=== PATIENT | male | born 1940 | race Caucasian/White ===

== ENCOUNTER 2019-04-10 10:21 | Inpatient (IN) ==
[2019-04-10 11:14] LABS: Basophils # (auto) 0.02 K/uL (0-0.2); Basophils % (auto) 0.4 %; Eosinophils # (auto) 0.07 K/uL (0-0.5); Eosinophils % (auto) 1.3 %; Hematocrit (blood only) 38.8 % (42-52); Hemoglobin 13.6 g/dL (14.0-18.0); Immature Granulocytes # (auto) 0.01 K/uL (0.00-0.02); Immature Granulocytes % (auto) 0.2 %; Lymphocytes # (auto) 1.24 K/uL (1.2-3.4); Lymphocytes % (auto) 22.9 %; Mean Corpuscular Hemoglobin 33.1 pg (25-34); Mean Corpuscular Hgb Conc 35.1 g/dL (32-36); Mean Corpuscular Volume 94.4 fL (80-100); Mean Platelet Volume 10.1 fL (7.4-10.4); Monocytes # (auto) 0.44 K/uL (0.11-0.59); Monocytes % (auto) 8.1 %; Neutrophils # (auto) 3.63 K/uL (1.4-6.5); Neutrophils % (auto) 67.1 %; Platelet Count 200 K/uL (130-400); RDW Coefficient of Variation 13.6 % (11.5-14.5); RDW Standard Deviation 46.3 fL (36.4-46.3); Red Blood Count 4.11 M/uL (4.7-6.1); White Blood Count 5.41 K/uL (4.8-10.8)
[2019-04-10] MEDS ORDERED: SODIUM CHLORIDE 0.9% 1000ML 1,000 ML IV SCH (11:15)
[2019-04-10 11:22] LABS: Albumin Level 3.9 gm/dl (3.4-5.0); Blood Urea Nitrogen 24 mg/dl (7-18); Calcium 8.8 mg/dl (8.5-10.1); Carbon Dioxide 29 mmol/L (21-32); Chloride 108 mmol/L (98-107); Creatinine Clr Calc Pharmacy 64.2 ml/min; Est GFR (African American) 82.2; Est GFR (Non-African American) 70.9; Glucose 159 mg/dl (70-99); Magnesium 2.1 mg/dl (1.8-2.4); Potassium 3.8 mmol/L (3.5-5.1); Sodium 141 mmol/L (136-145)
--- NOTE | 2019-04-10 11:27 | XRay Report ---
XR chest 1V portable HISTORY: 79 years-old Male weakness acute weakness COMPARISON: None available TECHNIQUE: Portable AP view of the chest FINDINGS: Cardiomediastinal and hilar silhouettes are within normal limits. Calcified plaque of the thoracic ao rtic arch. No pneumothorax, pleural effusion, focal airspace consolidation or overt pulmonary edema. Degenerative changes of the shoulders and spine. IMPRESSION: No acute process. ACT 112: Negative or not required by law. The above report was generated using voice recognition software. It may contain grammatical, syntax o r spelling errors. Electronically signed by: Bruce Lea M.D. 04/10/2019 11:26 AM
[2019-04-10 11:33] LABS: Alanine Aminotransferase 34 U/L (12-78); Albumin Globulin Ratio 1.3 (0.9-2); Alkaline Phosphatase 67 U/L (45-117); Aspartate Aminotransferase 24 U/L (15-37); Bilirubin,Total 1.2 mg/dl (0.2-1); Globulin 3.1 gm/dl (2.5-4.0); Troponin I < 0.015 ng/ml (0-0.045)
[2019-04-10 12:01] LABS: Appearance Urine Clear (Clear); Bilirubin Urine Negative (Negative); Blood Urine Negative (Negative); Color Urine Yellow; Glucose Urine UA Negative (Negative); Ketones Urine Negative (Negative); Leukocyte Esterase Urine Negative (Negative); Nitrite Urine Negative (Negative); Protein Urine Negative (Negative); Specific Gravity Urine 1.015 (1.000-1.030); Urobilinogen Urine Negative (Negative); pH Urine 7.5 (4.5-7.5)
[2019-04-10 12:33] LABS: Influenza A virus by PCR Neg for Influ A (Neg); Influenza B virus by PCR Neg for Influ B (Neg)
--- NOTE | 2019-04-10 13:54 | Emergency Department Note ---
Entered by Aurora Hudson acting as a scribe for History of Present Illness General Chief complaint: Weakness Stated complaint: FELT EXTREMELY TIRED AFTER BEING ON TREADMILL Time Seen by Provider: 04/10/19 11:04 Source: patient Mode of arrival: ambulatory Limitations: no limitations History of Present Illness Onset (ago): day(s) 1 Radiation: non-radiation Pain Consistency: + now resolved Maximum Pain Intensity: 0 Relieved By: + none Exacerbated By: + other (walking on treadmill) Associated symptoms: no chest pain, no fever/chills and no shortness of breath Treatments prior to arrival: none and other (-urinary symptoms) The patient is a 79 year old male who presents to the ED with complaints of weakness. He states yesterday after walking on the treadmill for 7 minutes in the morning, he began to feel increasingly weak. He took a shower, then became dizzy, and lied down for most of the day. He denies any recent fevers. He denies any chest pain while he was walking on the treadmill. He does admit to feeling "gassy" yesterday. He did eat breakfast this morning and states his abdomen feels better today. He denies feeling short of breath or urinary symptoms. The patient notes last weekend he was outside "for 5 hours" shoveling ice, and "felt fine". Home Medications Home Medications Medication Instructions Recorded Confirmed Type Alphagan P 1 drp OPR BID 04/10/19 04/10/19 History aspirin 81 mg PO Q2D 04/10/19 04/10/19 History dorzolamide 2 drp OPR DAILY 04/10/19 04/10/19 History finasteride 5 mg PO HS 04/10/19 04/10/19 History lisinopril 20 mg PO DAILY 04/10/19 04/10/19 History tamsulosin 0.4 mg PO Q2D 04/10/19 04/10/19 History travoprost [Travatan Z] 1 drp OPB DAILY 04/10/19 04/10/19 History atorvastatin 40 mg PO DAILY #30 tab 04/12/19 Rx clopidogrel 75 mg PO QAM #30 tab 04/12/19 Rx Allergies Allergy/AdvReac Type Severity Reaction Status Date / Time Penicillins Allergy Mild RASH Unverified 04/10/19 12:07 adhesive Allergy Unknown Verified 04/10/19 12:07 Past Med/Surg History Medical History BPH (benign prostatic hyperplasia) (Chronic) Glaucoma (Chronic) HTN (hypertension) (Chronic) Surgical History Hamstring tear with surgical repair Leg fracture with surgical repair Family History Mother Breast cancer Father Diabetes Coronary heart disease Social History Preferred Language: Latvian Communication Ability: Effective Commercial Account Manager Required: No Beliefs That Will Affect Care: None Current Living Situation: Spouse Feels Safe at Home: Yes Smoking Status: Never smoker Second Hand Exposure: No ; Hx Alcohol Use: Yes Hx Substance Use: No Review of Systems See HPI for pertinent positives & negatives. and A total of 10 systems reviewed and were otherwise negative Physical Exam Vital Signs Vital Signs - 24 hr 04/10/19 10:28 04/10/19 10:48 04/10/19 11:05 Temperature 36.5 C Temperature Source Oral Oral Pulse Rate - Lying 42 L Pulse Rate - Sitting 45 L Pulse Rate - Standing 46 L Pulse Rate 48 L 42 L Pulse Rhythm Regular Respiratory Rate 18 20 Respiratory Effort / Characteristics Non-Labored Spontaneous Respiratory Depth Normal Respiratory Pattern Regular Blood Pressure - Lying 148/72 H Blood Pressure - Sitting 128/75 Blood Pressure- Standing 145/82 H Blood Pressure 159/95 H Blood Pressure Mean 116 Blood Pressure Position Sitting Pulse Oximetry 100 98 Oxygen Delivery Method Room Air Room Air Sepsis Recent Fever Within 48 Hours No Sepsis New/Unexplained Change in Mental Status No Sepsis Action Taken by Nursing No Action Required Vital signs reviewed. General: Well-appearing 79 year old male, in no significant distress. HEENT: No scleral icterus, PERRLA, neck supple. Atraumatic. Cardiovascular: Regular rate and rhythm, no extra sounds. Pulmonary: Clear to auscultation bilaterally, normal work of breathing. Abdomen: Soft, nontender, nondistended, positive bowel sounds. Musculoskeletal: Atraumatic, no peripheral edema. Neurologic: Patient awake alert and oriented x 3. Skin: Warm, dry, no rash Course Course 1104: The patient was evaluated in room C10 and a complete history and physical were performed. 1300: I reevaluated the patient. He is resting comfortably. I discussed his re sults and my recommendation he remain in the hospital for further evaluation and management and he is agreeable with the plan. 1315: I discussed the patients case with Natasha Morales. The patient will be further evaluated. Consultations Consultation #1: I discussed the patients case with LALITHA for Natasha Morales. The patient will be further evaluated. Time: 13:15 Administered Medications Discontinued Medications Aspirin (Ecotrin Ectab) 81 mg PO Q2D@0900 [facility] Stop: 05/11/19 08:59 Last Admin: 04/11/19 08:05 Dose: 81 mg Documented by: [id number] Atorvastatin Calcium (Lipitor) 10 mg PO DAILY [facility] Stop: 05/11/19 08:59 Last Admin: 04/12/19 07:46 Dose: 10 mg Documented by: [id number] Admin: 04/11/19 08:06 Dose: 10 mg Documented by: [id number] Clopidogrel Bisulfate (Plavix) 75 mg PO QAM [facility] Stop: 05/12/19 08:59 Last Admin: 04/12/19 07:46 Dose: 75 mg Documented by: [id number] Dorzolamide HCl (Trusopt 2% Oph) 2 drops OPR DAILY [facility] Stop: 05/11/19 08:59 Last Admin: 04/12/19 07:45 Dose: 2 drops Documented by: [id number] Admin: 04/11/19 08:06 Dose: 2 drops Documented by: [id number] Fentanyl Citrate (Fentanyl Citrate) Confirm Administered Dose 100 mcg .ROUTE .STK-MED ONE Stop: 04/11/19 11:22 Last Admin: 04/11/19 12:51 Dose: 75 mcg Documented by: [id number] Finasteride (Proscar) 5 mg PO HS [facility] Stop: 05/10/19 20:59 Last Admin: 04/11/19 20:19 Dose: 5 mg Documented by: [id number] Admin: 04/10/19 20:02 Dose: 5 mg Documented by: [id number] Heparin Sodium (Porcine) (Heparin Iv Bolus (Junior Graphic Designer Use Only)) Confirm Administered Dose 10,000 units .ROUTE .STK-MED ONE Stop: 04/11/19 11:22 Last Admin: 04/11/19 12:41 Dose: 10,000 units Documented by: [id number] Heparin Sodium (Porcine) (Heparin Iv Bolus (Junior Graphic Designer Use Only)) Confirm Administered Dose 10,000 units .ROUTE .STK-MED ONE Stop: 04/11/19 12:32 Last Admin: 04/11/19 12:51 Dose: 1,000 units Documented by: [id number] Heparin Sodium/Sodium Chloride (Heparin/Nss 1000 Unit/500ml Flush Bag) Confirm Administered Dose 3,000 units IV .STK-MED ONE Stop: 04/11/19 11:22 Last Admin: 04/11/19 12:30 Dose: 3,000 units Documented by: [id number] Sodium Chloride (Nss 1000ml) 1,000 mls @ 125 mls/hr IV .Q8H [facility] Stop: 04/10/19 19:14 Last Infusion: 04/10/19 15:50 Dose: 0 mls/hr Documented by: [id number] Admin: 04/10/19 12:01 Dose: 125 mls/hr Documented by: [id number] Sodium Chloride (Nss 1000ml) 1,000 mls @ 100 mls/hr IV .Q10H [facility] Stop: 04/11/19 20:59 Last Infusion: 04/11/19 22:16 Dose: 0 mls/hr Documented by: [id number] Admin: 04/11/19 13:48 Dose: 100 mls/hr Documented by: [id number] Midazolam HCl (Versed) Confirm Administered Dose 2 mg .ROUTE .STK-MED ONE Stop: 04/11/19 11:22 Last Admin: 04/11/19 12:30 Dose: 2 mg Documented by: [id number] Nicardipine HCl (Cardene) Confirm Administered Dose 25 mg .ROUTE .STK-MED ONE Stop: 04/11/19 11:22 Last Admin: 04/11/19 12:29 Dose: 25 mg Documented by: [id number] Nitroglycerin/Dextrose (Nitroglycerin/D5w 100 Mcg/Ml 20ml Syringe) Confirm Administered Dose 2,000 mcg .ROUTE .STK-MED ONE Stop: 04/11/19 11:22 Last Admin: 04/11/19 12:29 Dose: 2,000 mcg Documented by: [id number] Alphagan P ~ Non- Formulary Patient's Own Med 1 ea OPR BID [facility] Stop: 05/10/19 20:59 Last Admin: 04/12/19 07:46 Dose: 1 ea Documented by: [id number] Admin: 04/11/19 20:19 Dose: 1 ea Documented by: [id number] Admin: 04/11/19 08:07 Dose: 1 ea Documented by: [id number] Admin: 04/10/19 22:41 Dose: 1 ea Documented by: [id number] Polyethylene Glycol (Miralax Powder Packet) 17 gm PO DAILY PRN PRN Reason: Constipation Stop: 05/10/19 15:45 Last Admin: 04/12/19 04:17 Dose: 17 gm Documented by: [id number] Tamsulosin HCl (Flomax) 0.4 mg PO Q2D@1800 [facility] Stop: 05/10/19 17:59 Last Admin: 04/10/19 18:36 Dose: 0.4 mg Documented by: [id number] Medical Decision Making Differential Diagnosis Differential Diagnosis includes but is not limited to dehydration, stroke, anemia, hypoglycemia, hyponatremia, hypernatremia, urinary tract infection, pneumonia, bronchitis, sepsis, gastroenteritis, additional abdominal pathology, metabolic abnormalities and infections. Medical Records Attestation: I reviewed the patient's medical records. Home Medications Current Medication List: was personally reviewed by me Laboratory Data Attestation: I reviewed the patient's lab results. Result diagrams: 04/12/19 05:20 04/12/19 05:20 Lab Results 04/10/19 04/10/19 04/10/19 Range/Units 10:45 10:45 10:45 WBC 5.41 (4.8-10.8) K/uL RBC 4.11 L (4.7-6.1) M/uL Hgb 13.6 L (14.0-18.0) g/dL Hct 38.8 L (42-52) % MCV 94.4 (80-100) fL MCH 33.1 (25-34) pg MCHC 35.1 (32-36) g/dL RDW Std Deviation 46.3 (36.4-46.3) fL RDW Coeff of Jak 13.6 (11.5-14.5) % Plt Count 200 (130-400) K/uL MPV 10.1 (7.4-10.4) fL Immature Gran % (Auto) 0.2 % Neut % (Auto) 67.1 % Lymph % (Auto) 22.9 % [place] % (Auto) 8.1 % Eos % (Auto) 1.3 % Baso % (Auto) 0.4 % Immature Gran # (Auto) 0.01 (0.00-0.02) K/uL Neut # (Auto) 3.63 (1.4-6.5) K/uL Lymph # (Auto) 1.24 (1.2-3.4) K/uL [place] # (Auto) 0.44 (0.11-0.59) K/uL Eos # (Auto) 0.07 (0-0.5) K/uL Baso # (Auto) 0.02 (0-0.2) K/uL Sodium 141 (136-145) mmol/L Potassium 3.8 (3.5-5.1) mmol/L Chloride 108 H (98-107) mmol/L Carbon Dioxide 29 (21-32) mmol/L Anion Gap 4.0 (3-11) BUN 24 H (7-18) mg/dl Creatinine 1.01 (0.6-1.4) mg/dl Est Cr Clr Drug Dosing 64.2 ml/min Est GFR ( Amer) 82.2 Est GFR (Non-Af Amer) 70.9 BUN/Creatinine Ratio 24.0 H (10-20) Glucose 159 H (70-99) mg/dl Calcium 8.8 (8.5-10.1) mg/dl Magnesium 2.1 (1.8-2.4) mg/dl Total Bilirubin 1.2 H (0.2-1) mg/dl AST 24 (15-37) U/L ALT 34 (12-78) U/L Alkaline Phosphatase 67 (45-117) U/L Troponin I < 0.015 (0-0.045) ng/ml Total Protein 7.0 (6.4-8.2) gm/dl Albumin 3.9 (3.4-5.0) gm/dl Globulin 3.1 (2.5-4.0) gm/dl Albumin/Globulin Ratio 1.3 (0.9-2) TSH 1.300 (0.300-4.500) uIu/ml Urine Color Urine Appearance (Clear) Urine pH (4.5-7.5) Ur Specific [place] (1.000-1.030) Urine Protein (Negative) Urine Glucose (UA) (Negative) Urine Ketones (Negative) Urine Blood (Negative) Urine Nitrite (Negative) Urine Bilirubin (Negative) Urine Urobilinogen (Negative) Ur Leukocyte Esterase (Negative) Lyme Disease IgG Ab Negative (Negative) Lyme Disease IgM Ab Negative (Negative) Influenza Type A (PCR) (Neg) Influenza Type B (PCR) (Neg) 04/10/19 04/10/19 Range/Units 11:50 11:50 WBC (4.8-10.8) K/uL RBC (4.7-6.1) M/uL Hgb (14.0-18.0) g/dL Hct (42-52) % MCV (80-100) fL MCH (25-34) pg MCHC (32-36) g/dL RDW Std Deviation (36.4-46.3) fL RDW Coeff of Jak (11.5-14.5) % Plt Count (130-400) K/uL MPV (7.4-10.4) fL Immature Gran % (Auto) % Neut % (Auto) % Lymph % (Auto) % [place] % (Auto) % Eos % (Auto) % Baso % (Auto) % Immature Gran # (Auto) (0.00-0.02) K/uL Neut # (Auto) (1.4-6.5) K/uL Lymph # (Auto) (1.2-3.4) K/uL [place] # (Auto) (0.11-0.59) K/uL Eos # (Auto) (0-0.5) K/uL Baso # (Auto) (0-0.2) K/uL Sodium (136-145) mmol/L Potassium (3.5-5.1) mmol/L Chloride (98-107) mmol/L Carbon Dioxide (21-32) mmol/L Anion Gap (3-11) BUN (7-18) mg/dl Creatinine (0.6-1.4) mg/dl Est Cr Clr Drug Dosing ml/min Est GFR ( Amer) Est GFR (Non-Af Amer) BUN/Creatinine Ratio (10-20) Glucose (70-99) mg/dl Calcium (8.5-10.1) mg/dl Magnesium (1.8-2.4) mg/dl Total Bilirubin (0.2-1) mg/dl AST (15-37) U/L ALT (12-78) U/L Alkaline Phosphatase (45-117) U/L Troponin I (0-0.045) ng/ml Total Protein (6.4-8.2) gm/dl Albumin (3.4-5.0) gm/dl Globulin (2.5-4.0) gm/dl Albumin/Globulin Ratio (0.9-2) TSH (0.300-4.500) uIu/ml Urine Color Yellow Urine Appearance Clear (Clear) Urine pH 7.5 (4.5-7.5) Ur Specific [place] 1.015 (1.000-1.030) Urine Protein Negative (Negative) Urine Glucose (UA) Negative (Negative) Urine Ketones Negative (Negative) Urine Blood Negative (Negative) Urine Nitrite Negative (Negative) Urine Bilirubin Negative (Negative) Urine Urobilinogen Negative (Negative) Ur Leukocyte Esterase Negative (Negative) Lyme Disease IgG Ab (Negative) Lyme Disease IgM Ab (Negative) Influenza Type A (PCR) Neg for Influ A (Neg) Influenza Type B (PCR) Neg for Influ B (Neg) Imaging Data Radiologist's Impression: Radiology results as stated below per my review and the radiologist's interpretation: XR chest 1V portable HISTORY: 79 years-old Male weakness acute weakness COMPARISON: None available TECHNIQUE: Portable AP view of the chest FINDINGS: Cardiomediastinal and hilar silhouettes are within normal limits. Calcified plaque of the thoracic aortic arch. No pneumothorax, pleural effusion, focal airspace consolidation or overt pulmonary edema. Degenerative changes of the shoulders and spine. IMPRESSION: No acute process. ACT 112: Negative or not required by law. The above report was generated using voice recognition software. It may contain grammatical, syntax or spelling errors. Electronically signed by: Bruce Lea M.D. 04/10/2019 11:26 AM ECG Data Attestation: I personally reviewed and interpreted this ECG as follows: Indication: + weakness Rate (beats per minute): 46 ECG Intervals/blocks: + Normal QT-c (378) ECG ST segments: no ST depression and no ST elevation ECG Findings: no PACs and no PVCs Additional Comments: An order for cardiac monitoring was placed, pt was found to be in a sinus bradycardia at 45 bpm Blood Pressure Blood Pressure Findings: Elevated blood pressure Blood Pressure Disposition: further management by hospitalist MERCED Narrative This pt was evaluated and appeared to be in no distress. IV access was obtained and lab work was drawn. PT was placed on the vehicle monitor technician and found to be in a sinus bradycardia. IVF were initiated. Pt denied pain and c/o fatigue/weakness. Lab work is reassuring. CXR is clear, EKG reveals no acute ischemia. Influenza swab is negative. Pt's case was d/w Dr. Mcgowan of cardiology regarding disposition. He has recommended hospitalist eval and stress test. Pt was informed of the plan and agrees. [facility] hospitalist service was consulted. Impression & Plan Bradycardia, Exercise intolerance Discharge Plan Visit Data *Final* Discharge Date/Time: 04/10/19 15:24 Chief Complaint: Weakness Stated Complaint: FELT EXTREMELY TIRED AFTER BEING ON TREADMILL ED Provider: Manda Mar Discharge Problem: Bradycardia, Exercise intolerance Patient Disposition: Admitted As Inpatient Condition: Good Discharge Instructions Interventions: ED Discharge Assessment Last Done: 04/10/19 15:24 The scribe's documentation has been prepared under my direction and personally reviewed by me in its entirety. I confirm that the note above accurately reflects all work, treatment, procedures, and medical decision making performed by me.
--- NOTE | 2019-04-10 14:24 | History & Physical Report ---
Date of Service April 10, 2019 Assessment & Plan (1) Sinus bradycardia: This is a 79yo M with a PMH of HTN, BPH and glaucoma who presents with fatigue since yesterday. Was walking on the treadmill and felt extremely fatigued after 7-8 minutes yesterday and was found to have sinus bradycardia. -Fatigue and weakness following 7 minutes on treadmill yesterday. Denies any AMS,chest pain, palpitations or SOB. BP stable -EKG with sinus bradycardia at 46 bpm -HR ranging from 40-50 since arrival -ED physician discussed with Dr. Mcgowan, who plans on stress echo in the morning -Monitor on telemetry overnight, external pacer pads at bedside -2D echo ordered. NPO after midnight (2) HTN (hypertension): Normotensive. Continue lisinopril. Avoid AV danna blocking agents (3) BPH (benign prostatic hyperplasia): Continue finasteride, tamsulosin DVT Ppx: SQ heparin Code status: FULL PCP: Mike Ulrich Dispo: Admitted to PCU. Plan to return home once medically stable. Patient seen in collaboration with Dr. Meadows. Please see addendum. History of Present Illness Chief Complaint: fatigue Primary Care Provider: Helena Ulrich MD This is a 79yo M with a PMH of HTN, BPH and glaucoma who presents with fatigue since yesterday. Was walking on the treadmill and felt extremely fatigued after 7-8 minutes and stopped. [place] very fatigued for the rest of the day despite resting. Has been using the treadmill approximately 5x/week since the beginning of the year and has been walking regularly for years and never has felt this way previously. Afterwards when bending down, patient felt dizzy but symptoms resolved with standing, which is not unusual for him. Denies any chest pain, palpitations, shortness of breath or near syncope. Does endorse recent palpitations if lying down on left side but feels fine when lying on right side. HR normally in high 50s at rest and 110s when walking but patient checked Fitbit twice yesterday and HR wasn't registering. Did shovel snow in driveway for hours last week without issue. Denies any history of CAD, NV, CAD. Denies fever, chills, nausea, vomiting, abdominal pain, dysuria, diarrhea or constipation. Allergies Allergy/AdvReac Type Severity Reaction Status Date / Time Penicillins Allergy Mild RASH Unverified 04/10/19 12:07 adhesive Allergy Unknown Verified 04/10/19 12:07 Home Medications Home Medications Medication Instructions Recorded Confirmed Type aspirin 81 mg PO Q2D 04/10/19 04/10/19 History atorvastatin [Lipitor] 10 mg PO DAILY 04/10/19 04/10/19 History brimonidine [Alphagan P] 1 drp OPR BID 04/10/19 04/10/19 History dorzolamide 2 drp OPR DAILY 04/10/19 04/10/19 History finasteride 5 mg PO HS 04/10/19 04/10/19 History lisinopril 20 mg PO DAILY 04/10/19 04/10/19 History tamsulosin 0.4 mg PO Q2D 04/10/19 04/10/19 History travoprost [Travatan Z] 1 drp OPB DAILY 04/10/19 04/10/19 History Past Med/Surg History Medical History (Updated 04/10/19 @ 16:01 by Yola Freeman PA-C) BPH (benign prostatic hyperplasia) (Chronic) Glaucoma (Chronic) HTN (hypertension) (Chronic) Surgical History (Updated 04/10/19 @ 15:59 by Yola Freeman PA-C) Hamstring tear with surgical repair Leg fracture with surgical repair Family History (Updated 04/10/19 @ 15:59 by Yola Freeman PA-C) Mother Breast cancer Father Diabetes Coronary heart disease Social History Preferred Language: Czech Communication Ability: Effective Local Company Hazmat Driver Required: No Beliefs That Will Affect Care: None Current Living Situation: Spouse Other Information That Helps Us Care for You: No Feels Safe at Home: Yes Safety Concerns: Feels Safe At This Time Smoking Status: Never smoker Do You Dip or Chew Tobacco: No ; Second Hand Exposure: No ; Tobacco Cessation Education Requested by Patient: No Hx Alcohol Use: Yes Hx Substance Use: No Review of Systems Review of Systems: At least ten systems reviewed and negative except as noted in the HPI. Physical Exam Physical Exam: Please see Dr. Meadows's addendum for physical exam details. Results & Data Vital Signs (Past 12 Hours) Vital Signs Temp Pulse Resp BP Pulse Ox 04/10/19 11:05 42 L 20 98 04/10/19 10:28 36.5 C 48 L 18 159/95 H 100 Laboratory Results Short CBC 04/10/19 Range/Units 10:45 WBC 5.41 (4.8-10.8) K/uL Hgb 13.6 L (14.0-18.0) g/dL Hct 38.8 L (42-52) % Plt Count 200 (130-400) K/uL BMP 04/10/19 10:45 Sodium 141 Potassium 3.8 Chloride 108 H Carbon Dioxide 29 BUN 24 H Creatinine 1.01 Glucose 159 H Calcium 8.8 Cardiac Enzymes 04/10/19 Range/Units 10:45 Troponin I < 0.015 (0-0.045) ng/ml Liver Function 04/10/19 Range/Units 10:45 Total Bilirubin 1.2 H (0.2-1) mg/dl AST 24 (15-37) U/L ALT 34 (12-78) U/L Alkaline Phosphatase 67 (45-117) U/L Albumin 3.9 (3.4-5.0) gm/dl Urine 04/10/19 Range/Units 11:50 Urine Color Yellow Urine Appearance Clear (Clear) Urine pH 7.5 (4.5-7.5) Ur Specific [place] 1.015 (1.000-1.030) Urine Protein Negative (Negative) Urine Glucose (UA) Negative (Negative) Diagnostic Findings CXR: IMPRESSION: No acute process. Supervising Physician Co-Signing Physician Notes 79yo M with a PMH of HTN, BPH and glaucoma who presents with fatigue since yesterday History and physical exam performed by me. Detailed history as documented by Yola Freeman PA-C History significant for extreme fatigue on using treadmill, reported heart rate in 50s on his fitbit. On physical exam, General: Well nourished, well hydrated, average body habitus, no acute distress and not ill appearing Eyes: PERRL, conjunctivae normal, not pale, anicteric sclerae, EOM intact bilaterally ENMT: External ear and nose normal, oropharynx normal Neck: Normal visual inspection, no tracheal deviation, no swelling noted Respiratory: Normal respiratory effort, no respiratory distress, lungs clear to auscultation, no crackles and no wheezes Cardiovascular: Pulse is bradycardic, regular rhythm. S1 and S2, no murmurs. No pedal edema Chest (Breasts): Chest: normal inspection of chest Gastrointestinal (Abdomen): Abdomen is not distended, soft, non-tender to palpation, no guarding, no palpable hepatosplenomegaly, normal bowel sounds Musculoskeletal: No cyanosis or clubbing, all extremities motor strength 5/5 Genitourinary: No CVA tenderness, no suprapubic tenderness Skin: No rash noted on gross inspection, No ulcers noted Neurologic: Alert and oriented x 3, No focal weakness, sensation grossly intact Psychiatric: Euthymic affect, normal judgement EKG showed sinus bradycardia, rate of 46, PA 192, QRS 102, QTc 378, no ST T changes TSH 1.3 Sinus bradycardia HR has been in 40s-50s in ER Avoid AV danna agents Zoll pads at bedside Telemetry monitoring 2D Echo Spoke with [employer] Consulting Architect Dr Mcgowan. Patient will get stress testing tomorrow morning. Continue home lisinopril for hypertension
[2019-04-10] MEDS ORDERED: POLYETHYLENE (MIRALAX) 17 GM PACK PO PRN (15:46)
[2019-04-10] MEDS ORDERED: ACETAMINOPHEN 325 MG TAB PO PRN (15:46)
[2019-04-10] MEDS ORDERED: TAMSULOSIN HCL 0.4 MG CAP PO SCH (18:00)
--- NOTE | 2019-04-10 18:16 | Electrocardiogram Report ---
Test Reason : Blood Pressure : / mmHG Vent. Rate : 046 BPM Atrial Rate : 046 BPM P-R Int : 192 ms QRS Dur : 102 ms QT Int : 432 ms P-R-T Axes : 030 017 022 degrees QTc Int : 378 ms Sinus bradycardia Otherwise normal ECG No previous ECGs available Confirmed by Candido Robert ([id number] on 04/10/2019 6:15:41 PM Referred By: ED Confirmed By:Luis Antonio Robert
[2019-04-10] MEDS: FINASTERIDE 5 MG TAB PO SCH (20:02)
[2019-04-10] MEDS: ALPHAGAN P OPR SCH (22:41)
[2019-04-11 06:27] LABS: Hemoglobin 11.9 g/dL (14.0-18.0); Mean Corpuscular Hemoglobin 32.2 pg (25-34); Mean Corpuscular Volume 94.9 fL (80-100); Mean Platelet Volume 10.1 fL (7.4-10.4); Platelet Count 173 K/uL (130-400); RDW Coefficient of Variation 13.4 % (11.5-14.5); RDW Standard Deviation 46.4 fL (36.4-46.3); Red Blood Count 3.69 M/uL (4.7-6.1); White Blood Count 5.74 K/uL (4.8-10.8)
[2019-04-11 07:01] LABS: BUN Creatinine Ratio 27.7 (10-20); Calcium 8.3 mg/dl (8.5-10.1); Creatinine Clr Calc Pharmacy 64.2 ml/min; Est GFR (African American) 82.2; Est GFR (Non-African American) 70.9; Potassium 4.1 mmol/L (3.5-5.1)
[2019-04-11] MEDS: ATORVASTATIN 10 MG TAB PO SCH (08:06)
[2019-04-11] MEDS: DORZOLAMIDE HCL 2% OPH SOLN 10 ML BTL OPR SCH (08:06)
[2019-04-11] MEDS: TRAVOPROST Z 0.004% OPH SOLN 2.5 ML BTL OPB SCH (08:06)
[2019-04-11] MEDS: ALPHAGAN P OPR SCH ×2 (08:07→20:19)
[2019-04-11] MEDS ORDERED: ASPIRIN 81 MG ECTAB PO SCH (09:00)
--- NOTE | 2019-04-11 09:59 | Cardiology Consultation ---
Date of Consultation April 11, 2019 Assessment & Plan (1) Dyspnea on exertion: Presentation was atypical for unstable angina, however, exercise stress testing did show significant ischemic EKG changes diffusely along with inducible hypokinesis of the LAD territory. Further evaluation with cardiac catheterization is indicated at this time. The procedure along with the alternatives were discussed with the patient and he agrees with proceeding with cardiac cath. He will remain n.p.o. and plan for cardiac catheterization today. We will hold off on making any medication changes at this time. (2) Sinus bradycardia: Good chronotropic response to exercise (3) HTN (hypertension): Normal BP response to exercise History of Present Illness Reason for Consultation: Dyspnea with exertion Requesting Physician: Dr. Crane Attending Physician: Juliana Langston MD History of Present Illness It was my pleasure to see Mr. Santos in consultation today April 11, 2019. He is a very pleasant 79-year-old gentleman who does not normally follow with a merchandising consultant. He presented to [facility] on 04/10/2019 with complaint of not feeling well. He states that on the morning of 04/09/2019 he woke up and went through his normal routine of eating breakfast and then walking on the treadmill. He states that after walking on the treadmill for only a few minutes he did not feel well. He did not have any exact chest pain but he states he just did not have the energy to continue on. This is very unusual for him. He also got significantly dyspneic and diaphoretic. He then went to rest however the symptoms persisted throughout the day. When he woke up on the symptoms were still present and he presented to the emergency department. Initial work-up was unremarkable except for resting bradycardia into the 40s he was admitted to telemetry. Overnight states he feels a little bit better and again denies any chest pain, nausea, palpitations, lightheadedness, dizziness or syncope. He denies any previous similar episodes. Allergies Allergy/AdvReac Type Severity Reaction Status Date / Time Penicillins Allergy Mild RASH Unverified 04/10/19 12:07 adhesive Allergy Unknown Verified 04/10/19 12:07 Home Medications Home Medications Medication Instructions Recorded Confirmed Type aspirin 81 mg PO Q2D 04/10/19 04/10/19 History atorvastatin [Lipitor] 10 mg PO DAILY 04/10/19 04/10/19 History brimonidine [Alphagan P] 1 drp OPR BID 04/10/19 04/10/19 History dorzolamide 2 drp OPR DAILY 04/10/19 04/10/19 History finasteride 5 mg PO HS 04/10/19 04/10/19 History lisinopril 20 mg PO DAILY 04/10/19 04/10/19 History tamsulosin 0.4 mg PO Q2D 04/10/19 04/10/19 History travoprost [Travatan Z] 1 drp OPB DAILY 04/10/19 04/10/19 History Patient History Medical History BPH (benign prostatic hyperplasia) (Chronic) Glaucoma (Chronic) HTN (hypertension) (Chronic) Surgical History Hamstring tear with surgical repair Leg fracture with surgical repair Family History Mother Breast cancer Father Diabetes Coronary heart disease Social History Preferred Language: Nepali Communication Ability: Effective Esthetician Required: No Beliefs That Will Affect Care: None Current Living Situation: Spouse Other Information That Helps Us Care for You: No Feels Safe at Home: Yes Safety Concerns: Feels Safe At This Time Smoking Status: Never smoker Do You Dip or Chew Tobacco: No ; Second Hand Exposure: No ; Tobacco Cessation Education Requested by Patient: No Hx Alcohol Use: Yes Hx Substance Use: No Review of Systems Review of Systems: All systems reviewed & are unremarkable except as noted in HPI & below Physical Exam Physical Exam: General: Awake, alert and oriented x 3. No acute distress. HEENT: Normocephalic, atraumatic. Pupils equal, round and reactive to light and accommodation. Extraocular muscles are intact. Anicteric sclera. Moist mucous membranes. Neck: No JVD. No bruit. Cardiovascular: Regular. Positive S-4. Normal S-1 and S-2. No S-3. 3/6 holosystolic ejection murmur, 5th intercostal space, mid-clavicular line without radiation. No rubs. Pulmonary: Clear to auscultation bilaterally. No rales, rhonchi, or wheezing. Abdomen: Bowel sounds x 4, soft. No rebound, guarding or tenderness. No organomegaly. Extremities: No clubbing, cyanosis or edema. +2 pedal pulses bilaterally. Skin: Warm and dry. Results & Data Vital Signs (Past 12 Hours) Vital Signs Temp Pulse Pulse Pulse Resp BP BP 04/11/19 07:39 42 L 04/11/19 07:34 36.8 C 50 L 18 110/60 04/11/19 03:37 36.6 C 46 L 20 107/61 04/10/19 23:19 45 L 04/10/19 23:12 41 L 112/62 04/10/19 22:57 36.6 C 45 L 18 94/50 L Pulse Ox 04/11/19 07:39 04/11/19 07:34 96 04/11/19 03:37 97 04/10/19 23:19 04/10/19 23:12 98 04/10/19 22:57 96 Laboratory Results Laboratory Results - last 24 hr 04/10/19 04/10/19 04/10/19 10:45 10:45 11:50 WBC 5.41 RBC 4.11 L Hgb 13.6 L Hct 38.8 L MCV 94.4 MCH 33.1 MCHC 35.1 RDW Std Deviation 46.3 RDW Coeff of Jak 13.6 Plt Count 200 MPV 10.1 Immature Gran % (Auto) 0.2 Neut % (Auto) 67.1 Lymph % (Auto) 22.9 [place] % (Auto) 8.1 Eos % (Auto) 1.3 Baso % (Auto) 0.4 Immature Gran # (Auto) 0.01 Neut # (Auto) 3.63 Lymph # (Auto) 1.24 [place] # (Auto) 0.44 Eos # (Auto) 0.07 Baso # (Auto) 0.02 Sodium 141 Potassium 3.8 Chloride 108 H Carbon Dioxide 29 Anion Gap 4.0 BUN 24 H Creatinine 1.01 Est Cr Clr Drug Dosing 64.2 Est GFR ( Amer) 82.2 Est GFR (Non-Af Amer) 70.9 BUN/Creatinine Ratio 24.0 H Glucose 159 H Calcium 8.8 Magnesium 2.1 Total Bilirubin 1.2 H AST 24 ALT 34 Alkaline Phosphatase 67 Troponin I < 0.015 Total Protein 7.0 Albumin 3.9 Globulin 3.1 Albumin/Globulin Ratio 1.3 TSH 1.300 Urine Color Urine Appearance Urine pH Ur Specific [place] Urine Protein Urine Glucose (UA) Urine Ketones Urine Blood Urine Nitrite Urine Bilirubin Urine Urobilinogen Ur Leukocyte Esterase Influenza Type A (PCR) Neg for Influ A Influenza Type B (PCR) Neg for Influ B 04/10/19 04/11/19 04/11/19 11:50 05:35 05:35 WBC 5.74 RBC 3.69 L Hgb 11.9 L Hct 35.0 L MCV 94.9 MCH 32.2 MCHC 34.0 RDW Std Deviation 46.4 H RDW Coeff of Jak 13.4 Plt Count 173 MPV 10.1 Immature Gran % (Auto) Neut % (Auto) Lymph % (Auto) [place] % (Auto) Eos % (Auto) Baso % (Auto) Immature Gran # (Auto) Neut # (Auto) Lymph # (Auto) [place] # (Auto) Eos # (Auto) Baso # (Auto) Sodium 142 Potassium 4.1 Chloride 110 H Carbon Dioxide 29 Anion Gap 3.0 BUN 28 H Creatinine 1.01 Est Cr Clr Drug Dosing 64.2 Est GFR ( Amer) 82.2 Est GFR (Non-Af Amer) 70.9 BUN/Creatinine Ratio 27.7 H Glucose 91 Calcium 8.3 L Magnesium Total Bilirubin AST ALT Alkaline Phosphatase Troponin I Total Protein Albumin Globulin Albumin/Globulin Ratio TSH Urine Color Yellow Urine Appearance Clear Urine pH 7.5 Ur Specific [place] 1.015 Urine Protein Negative Urine Glucose (UA) Negative Urine Ketones Negative Urine Blood Negative Urine Nitrite Negative Urine Bilirubin Negative Urine Urobilinogen Negative Ur Leukocyte Esterase Negative Influenza Type A (PCR) Influenza Type B (PCR) Medications Administered Current Inpatient Medications Acetaminophen (Tylenol) 650 mg PO Q4H PRN PRN Reason: Pain or Fever Stop: 05/10/19 15:45 Aspirin (Ecotrin Ectab) 81 mg PO Q2D@0900 [facility] Stop: 05/11/19 08:59 Last Admin: 04/11/19 08:05 Dose: 81 mg Documented by: Atorvastatin Calcium (Lipitor) 10 mg PO DAILY [facility] Stop: 05/11/19 08:59 Last Admin: 04/11/19 08:06 Dose: 10 mg Documented by: Dorzolamide HCl (Trusopt 2% Oph) 2 drops OPR DAILY [facility] Stop: 05/11/19 08:59 Last Admin: 04/11/19 08:06 Dose: 2 drops Documented by: Finasteride (Proscar) 5 mg PO HS [facility] Stop: 05/10/19 20:59 Last Admin: 04/10/19 20:02 Dose: 5 mg Documented by: Erasto P ~ Non- Formulary Patient's Own Med 1 ea OPR BID [facility] Stop: 05/10/19 20:59 Last Admin: 04/11/19 08:07 Dose: 1 ea Documented by: Polyethylene Glycol (Miralax Powder Packet) 17 gm PO DAILY PRN PRN Reason: Constipation Stop: 05/10/19 15:45 Tamsulosin HCl (Flomax) 0.4 mg PO Q2D@1800 [facility] Stop: 05/10/19 17:59 Last Admin: 04/10/19 18:36 Dose: 0.4 mg Documented by:
--- NOTE | 2019-04-11 10:18 | XCELERA ---
[id number] \\[email or web address]\PDF_Reports\[id number]___[email or web address].[id number]
--- NOTE | 2019-04-11 10:20 | XCELERA ---
[id number] \\MCXCELIBE\PDF_Reports\[id number]}___[id number]
--- NOTE | 2019-04-11 11:14 | Pre Anesthesia Assessment ---
Date of Service April 11, 2019 Pre Sedation Assessment Vital Signs Temp Pulse Pulse Pulse Resp BP BP 04/11/19 07:39 42 L 04/11/19 07:34 98.2 F 50 L 18 04/11/19 03:37 97.9 F 46 L 20 04/10/19 23:19 45 L 04/10/19 23:12 41 L 04/10/19 22:57 97.9 F 45 L 18 94/50 L 04/10/19 19:24 98.2 F 52 L 18 112/59 L 04/10/19 16:00 50 L 04/10/19 15:46 97.7 F 46 L 16 153/63 H 04/10/19 15:01 45 L 17 04/10/19 15:00 47 L 7 L 124/62 04/10/19 14:50 49 L 24 04/10/19 14:40 44 L 21 04/10/19 14:30 48 L 16 04/10/19 14:20 46 L 20 04/10/19 14:12 46 L 22 04/10/19 14:11 46 L 18 149/128 H 04/10/19 13:00 44 L 21 143/72 H 04/10/19 12:50 43 L 6 L 04/10/19 12:40 41 L 17 04/10/19 12:30 40 L 0 L 04/10/19 12:20 41 L 18 04/10/19 12:10 41 L 20 04/10/19 12:01 44 L 14 04/10/19 12:00 49 L 15 145/82 H 04/10/19 11:58 46 L 21 138/75 BP Pulse Ox 04/11/19 07:39 04/11/19 07:34 110/60 96 04/11/19 03:37 107/61 97 04/10/19 23:19 04/10/19 23:12 112/62 98 04/10/19 22:57 96 04/10/19 19:24 95 04/10/19 16:00 04/10/19 15:46 100 04/10/19 15:01 04/10/19 15:00 04/10/19 14:50 04/10/19 14:40 04/10/19 14:30 04/10/19 14:20 04/10/19 14:12 04/10/19 14:11 04/10/19 13:00 04/10/19 12:50 04/10/19 12:40 04/10/19 12:30 04/10/19 12:20 04/10/19 12:10 04/10/19 12:01 04/10/19 12:00 04/10/19 11:58 Cardiovascular RRR, no murmur, no edema Respiratory normal respiratory effort, lungs clear to auscultation Pre-Sedation Airway Assessment Smoking Status: Never smoker Hx Sleep Apnea: No Hx Difficult Intubation: No Short, Thick Neck: No Thyromental Distance: > or= 3.5 Finger Breadths Oral Cavity: + WNL Mallampati Class: III Procedure Planning Contraindications for Sedation: none Current Medications Reviewed: Yes Notes The planned sedation has been discussed with the patient. Informed Consent was obtained. I have identified the patient, determined the appropriateness of sedation and have assessed the patient immediately prior to the procedure. All medicine(s) and interventions are by my order.
[2019-04-11] MEDS ORDERED: NITROGLYCERIN/D5W 100MCG/ML 20ML SYR ONE (11:21)
[2019-04-11] MEDS ORDERED: HEPARIN (PORCINE) 1000 UNIT/ML 10 ML (CATH LAB USE ONLY) ONE ×2 (11:21→12:31)
[2019-04-11] MEDS ORDERED: fentaNYL citrate 100 MCG/2 ML VIAL ONE (11:21)
[2019-04-11] MEDS ORDERED: MIDAZOLAM HCL 1 MG/ML 2ML VIAL ONE (11:21)
[2019-04-11] MEDS ORDERED: NiCARDipine HCL INJ 2.5 MG/ML 10 ML AMP ONE (11:21)
--- NOTE | 2019-04-11 13:11 | Post Anesthesia Assessment ---
Date of Service April 11, 2019 Post Sedation Assessment Vital Signs Temp Pulse Pulse Pulse Resp BP BP 04/11/19 13:10 04/11/19 13:05 04/11/19 07:39 42 L 04/11/19 07:34 98.2 F 50 L 18 04/11/19 03:37 97.9 F 46 L 20 04/10/19 23:19 45 L 04/10/19 23:12 41 L 04/10/19 22:57 97.9 F 45 L 18 94/50 L 04/10/19 19:24 98.2 F 52 L 18 112/59 L 04/10/19 16:00 50 L 04/10/19 15:46 97.7 F 46 L 16 153/63 H 04/10/19 15:01 45 L 17 04/10/19 15:00 47 L 7 L 124/62 04/10/19 14:50 49 L 24 04/10/19 14:40 44 L 21 04/10/19 14:30 48 L 16 04/10/19 14:20 46 L 20 04/10/19 14:12 46 L 22 04/10/19 14:11 46 L 18 149/128 H BP Pulse Ox 04/11/19 13:10 108/70 04/11/19 13:05 113/57 L 04/11/19 07:39 04/11/19 07:34 110/60 96 04/11/19 03:37 107/61 97 04/10/19 23:19 04/10/19 23:12 112/62 98 04/10/19 22:57 96 04/10/19 19:24 95 04/10/19 16:00 04/10/19 15:46 100 04/10/19 15:01 04/10/19 15:00 04/10/19 14:50 04/10/19 14:40 04/10/19 14:30 04/10/19 14:20 04/10/19 14:12 04/10/19 14:11 Recovery Score Activity: Moves 4 extremities Respiration: Deep Breath/Cough Circulation: +/-20% PreAnes Value Consciousness: Fully Awake Oxygen Saturation: O2 needed for >90% Discharge Sedation Level of Care: Fast Track Phase II Post Sedation Plan On clinical assessment, the patient appears to have tolerated the sedation without complications. Patient is recovering as anticipated. Patient will continue to be monitored by nursing and may be discharged when sedation discharge criteria are met per below protocol. Upon Completions of procedure up to 15 minutes continue every 5 minute vital signs and the P.A.R. score; then discharge to a Phase I or Fast Track to Phase II per the following guidelines: * Discharge Patient to appropriate Phase II area if PAR is 8 or greater or return to pre- procedure baseline. The post - procedure orders will be as directed. * If PAR score is less than 8 or not return to pre-procedure baseline then patient will follow Phase I monitoring till PAR is reached for Phase II. The Phase I may be done in procedure room or may call to secure a Phase I area. * If naloxone or flumazenil are used for reversal, hold in Phase I for ping nued monitoring from when last reversal dose was given for a minimum of 60 minutes or longer pending the nurse and/or physician discretion of patient condition before discharge to Phase II. Please call the Sedation Physician to re-evaluate and complete post-note for discharge to Phase II area. Do NOT discharge from procedure sedation or Phase 1 until post- sedation evaluation note is complete by procedure /sedation MD Sedation Discharge Instructions to be given to the patient at discharge to home.
[2019-04-11 13:18] LABS: Lyme Ab IgG w/WB Rflx Negative (Negative); Lyme Ab IgM w/WB Rflx Negative (Negative)
[2019-04-11] MEDS ORDERED: ONDANSETRON INJ 2 MG/ML 2 ML VIAL IV PRN (13:23)
--- NOTE | 2019-04-11 13:23 | Cardiac Catheterization ---
[facility] Data: Network Program Manager Cardiac Status Clinical evaluation leading to the procedure CAD Presenation: Positive Stress Test Anginal Classification: CCS III Heart Failure: No Cardiogenic Shock within 24 Hours: No Cardiac Arrest within 24 Hours: No Imaging Studies Past 6 Months: Yes Stress Studies Past 6 Months: Yes Stress Echocardiogram: Yes - Positive and Risk/Extent of Ischemia (High) Diagnostic Physicians Name: Candido Stanley MD Status: Elective Closure Device Percutaneous Entry Location: Radial Closure Device: Radial Band Recommendations: PCI without planned CABG PCI Indication: + Stress Test Lesion Segment Name: mid LAD Culprit Artery: Yes Stenosis Prior to Rx (%): 70 Chronic Total Occlusion: No IVUS: No FFR: No Pre-Procedure [place] Flow: 3 Previously Treated Lesion: No Lesion Complexity: Non-High/Non-C Lesion Length (mm): 15 Thrombus Present: No Bifurcation Lesion: No Guidewire Across Lesion: Stenosis Post-Procedure (%): 0 Post-Procedure [place] Flow: 3 Devices(s) Deployed: Yes Yes Intraprocedure Events Significant Disection: No Perforation: No Cardiac Cath Procedure Full Procedure Date April 11, 2019 Pre-Procedure Diagnosis Pre-Procedure Diagnosis: Positive Stress Test AUC Score AUC Score: 7 Post-Procedure Diagnosis Post-Procedure Diagnosis: Severe CAD, Successful PCI and Normal Intracardiac Pressures Procedure(s) Performed Procedure(s) Performed: Coronary Angiography, Left Heart Cath and Drug Eluting Stent Fabric Normalizer Candido Stanley MD Dater Assembler(s) Rafat Talley Estimated Blood Loss Estimated Blood Loss: 10 Medication(s) Medication(s): Fentanyl, Heparin, Lidocaine 1%, Nicardipine, Nitroglycerin and Versed Summary of Findings Indication: Abnormal stress test Access: 6 Fr right radial artery Catheters: Jackson, JL 3.5, EBU 3.5 guide Findings: LM -large caliber, angiographically normal LAD -medium caliber, proximal luminal irregularities, mildly calcified, 70% mid segment stenosis at takeoff of small second/third diagonal. Distal luminal irregularities. Circumflex -large caliber vessel, dominant, angiographically normal. Large OM 2, OM 3 and PDA without significant disease RCA -nondominant, luminal regularities LVEDP -8 -- PCI -- Antithrombotic therapy: Heparin, clopidogrel Procedure: Left main cannulated with EBU 3.5 guide Location Manager 50 wire passed across lesion into distal vessel Mid LAD lesion predilated with 2.5 compliant balloon Dilated lesion stented with 2.75 x 22 mm [place] drug-eluting stent Stent post-dilated with 3.0 noncompliant balloon IC vasodilators administered for spasm Post procedure [place] 3 flow, stent well expanded with minimal residual stenosis and no apparent cardiac complications. Arterial Closure: TR band Summary: 1. Severe single vessel coronary artery disease -70% mid LAD 2. Normal intracardiac filling pressure 3. Successful PCI of mid LAD with single drug-eluting stent (2.75 x 22 mm Syed; postdilated with 3.0 NC). Recommendations: To PCU for continued monitoring Loaded with clopidogrel 600 mg in label printing machinist Continue dual-antiplatelet therapy for at least 6 months Continue statin, and ASCVD risk factor modification Consult cardiac Rehab Hemodynamics Rest Ao:: Final Ao: LV: 93/8 Recommendations Recommendations: PCI without planned CABG Specimens Specimens: None Radiation Exposure (mGy) 3433 Contrast (mls) 170 Fluids (cc crystalloids) Fluids (cc crystalloids): 937 Drains Drains: None Anesthesia Moderate Procedural Complication(s) None Disposition PCU I attest to the content of the Intraoperative Record and any orders documented therein. Any exceptions are noted below. [facility] Card Cath Procedure Codes Cardiac Catheterization Procedure 1: Cardiovascular Cath Procedures: 57850 Coronaries and LHC (+/-LV) Moderate Sedation Procedure 1: Sedation/Anesthesia: 14030 Mod Sedation by the same physician;Init15 Min Child Age 5 & Up Procedure 2: Sedation/Anesthesia: 39147 Mod Sedation by the same physician; Ea [id number] Minutes Stenting Procedure 1: Cardiovascular Stent Procedures: 02777 Perc transcatheter placement of intracoronary stent(s), with ang PG Care Time/CCT Total # of Minutes Spent Total Time Spent with Patient: Total time spent is greater than 50% in coordination of care (as documented) at patient's floor/unit and/or counseling patient:
[2019-04-11] MEDS ORDERED: SODIUM CHLORIDE 0.9% 1000ML 1,000 ML IV SCH (13:30)
--- NOTE | 2019-04-11 15:18 | Hospitalist Progress Note ---
Date of Service April 11, 2019 Assessment & Plan (1) Sinus bradycardia: This is a 79yo M with a PMH of HTN, BPH and glaucoma who presents with fatigue since yesterday. Was walking on the treadmill and felt extremely fatigued after 7-8 minutes yesterday and was found to have sinus bradycardia. -Fatigue and weakness following 7 minutes on treadmill yesterday. Denies any AMS,chest pain, palpitations or SOB. BP stable -EKG with sinus bradycardia at 46 bpm , some J-point elevation -HR ranging from 40-50 since arrival -Serial cardiac enzymes remained unremarkable -Appreciate cardiology input -Status post positive stress echo -Status post cardiac cath with significant mid LAD stenosis -Status post Successful PCI of mid LAD with single drug-eluting stent (2.75 x 22 mm Syed; postdilated with 3.0 NC). -Continue dual antiplatelet for about 6 months as recommended -Remains tired but otherwise no complaints (2) HTN (hypertension): Normotensive. Continue lisinopril. Avoid AV danna blocking agents (3) BPH (benign prostatic hyperplasia): Continue finasteride, tamsulosin DVT Ppx: SQ heparin Code status: FULL PCP: Mike Ulrich Dispo: Admitted to PCU. Plan to return home once medically stable. Patient seen in collaboration with Dr. Meadows. Please see addendum. Subjective 04/11/2019 Patient is seen and examined in telemetry unit He was admitted with symptomatic bradycardia, which has been going on for some time He did not have any chest pain but felt generally weak and lethargic Review of Systems Review of Systems: All systems reviewed and unremarkable except as noted below Constitutional: + fatigue and + weakness Physical Exam Physical Exam: Lying in bed, anxious without any distress Constitutional: + ill appearing; no acute distress ENMT: Mallampati Class: II Respiratory: Auscultation: lungs clear to auscultation bilaterally Cardiovascular: Rate/Rhythm: regular rate, regular rhythm and + bradycardic Gastrointestinal (Abdomen): Inspection/Auscultation: abdomen normal to inspection and normal bowel sounds Musculoskeletal: No acute arthritis in any joints Results & Data Vital Signs (Past 12 Hours) Vital Signs Temp Pulse Pulse Resp BP BP Pulse Ox 04/11/19 15:00 57 L 57 L 16 135/71 98 04/11/19 14:30 54 L 54 L 16 117/72 97 04/11/19 14:15 55 L 55 L 16 120/77 97 04/11/19 14:00 54 L 54 L 16 117/71 99 04/11/19 13:45 36.4 C L 51 L 49 L 18 118/72 97 04/11/19 13:30 36.5 C 51 L 52 L 18 116/67 97 04/11/19 13:10 108/70 04/11/19 13:05 113/57 L 04/11/19 07:39 42 L 04/11/19 07:34 36.8 C 50 L 18 110/60 96 04/11/19 03:37 36.6 C 46 L 20 107/61 97 Laboratory Results Short CBC 04/11/19 Range/Units 05:35 WBC 5.74 (4.8-10.8) K/uL Hgb 11.9 L (14.0-18.0) g/dL Hct 35.0 L (42-52) % Plt Count 173 (130-400) K/uL BMP 04/11/19 05:35 Sodium 142 Potassium 4.1 Chloride 110 H Carbon Dioxide 29 BUN 28 H Creatinine 1.01 Glucose 91 Calcium 8.3 L Medications Administered Current Inpatient Medications Acetaminophen (Tylenol) 650 mg PO Q4H PRN PRN Reason: Pain or Fever Stop: 05/10/19 15:45 Aspirin (Ecotrin Ectab) 81 mg PO Q2D@0900 [facility] Stop: 05/11/19 08:59 Last Admin: 04/11/19 08:05 Dose: 81 mg Documented by: Atorvastatin Calcium (Lipitor) 10 mg PO DAILY [facility] Stop: 05/11/19 08:59 Last Admin: 04/11/19 08:06 Dose: 10 mg Documented by: Clopidogrel Bisulfate (Plavix) 75 mg PO QAM [facility] Stop: 05/12/19 08:59 Dorzolamide HCl (Trusopt 2% Oph) 2 drops OPR DAILY [facility] Stop: 05/11/19 08:59 Last Admin: 04/11/19 08:06 Dose: 2 drops Documented by: Finasteride (Proscar) 5 mg PO HS [facility] Stop: 05/10/19 20:59 Last Admin: 04/10/19 20:02 Dose: 5 mg Documented by: Sodium Chloride (Nss 1000ml) 1,000 mls @ 100 mls/hr IV .Q10H [facility] Stop: 04/11/19 20:59 Last Admin: 04/11/19 13:48 Dose: 100 mls/hr Documented by: Erasto P ~ Non- Formulary Patient's Own Med 1 ea OPR BID [facility] Stop: 05/10/19 20:59 Last Admin: 04/11/19 08:07 Dose: 1 ea Documented by: Ondansetron HCl (Zofran) 4 mg IV Q6H PRN PRN Reason: Nausea And Vomiting Stop: 05/11/19 13:22 Polyethylene Glycol (Miralax Powder Packet) 17 gm PO DAILY PRN PRN Reason: Constipation Stop: 05/10/19 15:45 Tamsulosin HCl (Flomax) 0.4 mg PO Q2D@1800 [facility] Stop: 05/10/19 17:59 Last Admin: 04/10/19 18:36 Dose: 0.4 mg Documented by:
--- NOTE | 2019-04-11 20:12 | Electrocardiogram Report ---
Test Reason : Blood Pressure : / mmHG Vent. Rate : 047 BPM Atrial Rate : 047 BPM P-R Int : 214 ms QRS Dur : 100 ms QT Int : 456 ms P-R-T Axes : 018 006 006 degrees QTc Int : 403 ms Sinus bradycardia with 1st degree A-V block Otherwise normal ECG When compared with ECG of 10-APR-2019 10:38, No significant change was found Confirmed by Candido Robert ([id number]) on 04/11/2019 8:11:55 PM Referred By: REFERRED SELF Confirmed By:Luis Antonio Robert
[2019-04-11] MEDS: FINASTERIDE 5 MG TAB PO SCH (20:19)
[2019-04-12 05:55] LABS: Basophils # (auto) 0.01 K/uL (0-0.2); Basophils % (auto) 0.2 %; Eosinophils # (auto) 0.09 K/uL (0-0.5); Eosinophils % (auto) 1.5 %; Immature Granulocytes # (auto) 0.02 K/uL (0.00-0.02); Immature Granulocytes % (auto) 0.3 %; Lymphocytes # (auto) 1.19 K/uL (1.2-3.4); Lymphocytes % (auto) 20.3 %; Mean Corpuscular Hemoglobin 33.1 pg (25-34); Mean Corpuscular Hgb Conc 35.3 g/dL (32-36); Mean Corpuscular Volume 93.9 fL (80-100); Mean Platelet Volume 10.1 fL (7.4-10.4); Monocytes # (auto) 0.57 K/uL (0.11-0.59); Monocytes % (auto) 9.7 %; Neutrophils # (auto) 3.97 K/uL (1.4-6.5); Platelet Count 156 K/uL (130-400); RDW Coefficient of Variation 13.4 % (11.5-14.5); RDW Standard Deviation 46.1 fL (36.4-46.3); Red Blood Count 3.62 M/uL (4.7-6.1); White Blood Count 5.85 K/uL (4.8-10.8)
[2019-04-12 06:22] LABS: Calcium 8.3 mg/dl (8.5-10.1); Est GFR (African American) 94.5; Est GFR (Non-African American) 81.5; Magnesium 1.9 mg/dl (1.8-2.4); Potassium 3.8 mmol/L (3.5-5.1)
[2019-04-12] MEDS: DORZOLAMIDE HCL 2% OPH SOLN 10 ML BTL OPR SCH (07:45)
[2019-04-12] MEDS: TRAVOPROST Z 0.004% OPH SOLN 2.5 ML BTL OPB SCH (07:45)
[2019-04-12] MEDS: ALPHAGAN P OPR SCH (07:46)
[2019-04-12] MEDS: ATORVASTATIN 10 MG TAB PO SCH (07:46)
[2019-04-12] MEDS ORDERED: CLOPIDOGREL BISULFATE 75 MG TAB PO SCH (09:00)
--- NOTE | 2019-04-12 09:15 | Cardiology Progress Note ---
Date of Service April 12, 2019 Assessment & Plan (1) Dyspnea on exertion: S/P successful PCI to mid LAD will require dual antiplatelet at least 6 months, preferably 12 months will increase atorvastatin to 40mg daily my office will call to arrange f/u with me in 2-4 weeks along with cardiac rehab referral restrictions reviewed ok to d/c to home from cardiac standpoint (2) Sinus bradycardia: Good chronotropic response to exercise (3) HTN (hypertension): Normal BP response to exercise resume lisinopril upon discharge Subjective Pt seen and examined, states that he feels well, anxious for discharge. Denies cp, sob, palpitations, lightheadedness or dizziness. tele reviewed: sinus bradycardia without arrhythmia or significant ectopy. Review of Systems Review of Systems: All systems reviewed & are unremarkable except as noted in HPI & below Physical Exam Physical Exam: General: Awake, alert and oriented x 3. No acute distress. HEENT: Normocephalic, atraumatic. Pupils equal, round and reactive to light and accommodation. Extraocular muscles are intact. Anicteric sclera. Moist mucous membranes. Neck: No JVD. No bruit. Cardiovascular: Regular. Positive S-4. Normal S-1 and S-2. No S-3. No murmurs or rubs. Pulmonary: Clear to auscultation B/L. No rales, rhonchi or wheezing Abdomen: Bowel sounds x 4, soft. No rebound, guarding or tenderness. No organomegaly. Extremities: No clubbing, cyanosis or edema. +2 pedal pulses bilaterally. Skin: Warm and dry. Results & Data Vital Signs (Past 12 Hours) Vital Signs Temp Pulse Resp BP Pulse Ox 04/12/19 07:26 36.6 C 51 L 18 132/74 96 04/12/19 03:15 36.6 C 54 L 16 122/63 95 04/11/19 22:55 36.6 C 52 L 16 132/76 98
--- NOTE | 2019-04-12 11:04 | Hospitalist Progress Note ---
Date of Service April 12, 2019 Assessment & Plan (1) Sinus bradycardia: This is a 79yo M with a PMH of HTN, BPH and glaucoma who presents with fatigue since yesterday. Was walking on the treadmill and felt extremely fatigued after 7-8 minutes yesterday and was found to have sinus bradycardia. -Fatigue and weakness following 7 minutes on treadmill yesterday. Denies any AMS,chest pain, palpitations or SOB. BP stable -EKG with sinus bradycardia at 46 bpm , some J-point elevation -HR ranging from 40-50 since arrival -Serial cardiac enzymes remained unremarkable -Appreciate cardiology input -Status post positive stress echo -Status post cardiac cath with significant mid LAD stenosis -Status post Successful PCI of mid LAD with single drug-eluting stent (2.75 x 22 mm Syed; postdilated with 3.0 NC). -Continue dual antiplatelet for about 6 months as recommended -Remains tired but otherwise no complaints -Denies any symptoms following the cardiac cath and stent placement -EKG did show bradycardia which seems to be longstanding and does not require any further treatment -Discussed with descriptive catalog librarian and he will be going home this afternoon (2) HTN (hypertension): Normotensive. Continue lisinopril. Avoid AV danna blocking agents Blood pressure is controlled (3) BPH (benign prostatic hyperplasia): Continue finasteride, tamsulosin DVT Ppx: SQ heparin Code status: FULL PCP: Mike Ulrich Dispo: Admitted to PCU. Plan to return home once medically stable. Patient seen in collaboration with Dr. Meadows. Please see addendum. Subjective 04/12/2019 The patient was seen and examined in telemetry unit He feels a lot better and wants to go home Discussed with cardiology and he will be sent home this afternoon 04/11/2019 Patient is seen and examined in telemetry unit He was admitted with symptomatic bradycardia, which has been going on for some time He did not have any chest pain but felt generally weak and lethargic Review of Systems Review of Systems: All systems reviewed and unremarkable except as noted below Constitutional: + fatigue and + weakness Physical Exam Physical Exam: Lying in the bed without any distress Constitutional: + ill appearing; no acute distress ENMT: Mallampati Class: II Respiratory: normal respiratory effort Auscultation: lungs clear to auscultation bilaterally Cardiovascular: Rate/Rhythm: regular rate, regular rhythm and + bradycardic Heart Sounds: no murmur Gastrointestinal (Abdomen): Inspection/Auscultation: abdomen normal to inspection and normal bowel sounds Results & Data Vital Signs (Past 12 Hours) Vital Signs Temp Pulse Resp BP Pulse Ox 04/12/19 10:44 36.6 C 51 L 18 132/74 96 04/12/19 07:26 36.6 C 51 L 18 132/74 96 04/12/19 03:15 36.6 C 54 L 16 122/63 95 Laboratory Results Short CBC 04/12/19 Range/Units 05:20 WBC 5.85 (4.8-10.8) K/uL Hgb 12.0 L (14.0-18.0) g/dL Hct 34.0 L (42-52) % Plt Count 156 (130-400) K/uL BMP 04/12/19 05:20 Sodium 142 Potassium 3.8 Chloride 110 H Carbon Dioxide 29 BUN 25 H Creatinine 0.90 Glucose 99 Calcium 8.3 L Medications Administered Current Inpatient Medications Acetaminophen (Tylenol) 650 mg PO Q4H PRN PRN Reason: Pain or Fever Stop: 05/10/19 15:45 Aspirin (Ecotrin Ectab) 81 mg PO Q2D@0900 [facility] Stop: 05/11/19 08:59 Last Admin: 04/11/19 08:05 Dose: 81 mg Documented by: Atorvastatin Calcium (Lipitor) 40 mg PO DAILY [facility] Stop: 05/13/19 08:59 Clopidogrel Bisulfate (Plavix) 75 mg PO QAM [facility] Stop: 05/12/19 08:59 Last Admin: 04/12/19 07:46 Dose: 75 mg Documented by: Dorzolamide HCl (Trusopt 2% Oph) 2 drops OPR DAILY [facility] Stop: 05/11/19 08:59 Last Admin: 04/12/19 07:45 Dose: 2 drops Documented by: Finasteride (Proscar) 5 mg PO HS [facility] Stop: 05/10/19 20:59 Last Admin: 04/11/19 20:19 Dose: 5 mg Documented by: Alphagan P ~ Non- Formulary Patient's Own Med 1 ea OPR BID [facility] Stop: 05/10/19 20:59 Last Admin: 04/12/19 07:46 Dose: 1 ea Documented by: Ondansetron HCl (Zofran) 4 mg IV Q6H PRN PRN Reason: Nausea And Vomiting Stop: 05/11/19 13:22 Polyethylene Glycol (Miralax Powder Packet) 17 gm PO DAILY PRN PRN Reason: Constipation Stop: 05/10/19 15:45 Last Admin: 04/12/19 04:17 Dose: 17 gm Documented by: Tamsulosin HCl (Flomax) 0.4 mg PO Q2D@1800 [facility] Stop: 05/10/19 17:59 Last Admin: 04/10/19 18:36 Dose: 0.4 mg Documented by:
--- NOTE | 2019-04-12 17:16 | Discharge Summary ---
Date of Service April 12, 2019 Admission HPI Per Admitting Provider This is a 79yo M with a PMH of HTN, BPH and glaucoma who presents with fatigue since yesterday. Was walking on the treadmill and felt extremely fatigued after 7-8 minutes and stopped. [place] very fatigued for the rest of the day despite resting. Has been using the treadmill approximately 5x/week since the beginning of the year and has been walking regularly for years and never has felt this way previously. Afterwards when bending down, patient felt dizzy but symptoms resolved with standing, which is not unusual for him. Denies any chest pain, palpitations, shortness of breath or near syncope. Does endorse recent palpitations if lying down on left side but feels fine when lying on right side. HR normally in high 50s at rest and 110s when walking but patient checked Fitbit twice yesterday and HR wasn't registering. Did shovel snow in driveway for hours last week without issue. Denies any history of CAD, HI, CAD. Denies fever, chills, nausea, vomiting, abdominal pain, dysuria, diarrhea or constipation. Admission Exam Per Admitting Provider General: Well nourished, well hydrated, average body habitus, no acute distress and not ill appearing Eyes: PERRL, conjunctivae normal, not pale, anicteric sclerae, EOM intact bilaterally ENMT: External ear and nose normal, oropharynx normal Neck: Normal visual inspection, no tracheal deviation, no swelling noted Respiratory: Normal respiratory effort, no respiratory distress, lungs clear to auscultation, no crackles and no wheezes Cardiovascular: Pulse is bradycardic, regular rhythm. S1 and S2, no murmurs. No pedal edema Chest (Breasts): Chest: normal inspection of chest Gastrointestinal (Abdomen): Abdomen is not distended, soft, non-tender to palpation, no guarding, no palpable hepatosplenomegaly, normal bowel sounds Musculoskeletal: No cyanosis or clubbing, all extremities motor strength 5/5 Genitourinary: No CVA tenderness, no suprapubic tenderness Skin: No rash noted on gross inspection, No ulcers noted Neurologic: Alert and oriented x 3, No focal weakness, sensation grossly intact Psychiatric: Euthymic affect, normal judgement Principal Diagnosis CAD status post successful PCI to mid LAD, bradycardia, hypertension Discharge Exam Constitutional + ill appearing; no acute distress ENMT Mallampati Class: II Respiratory normal respiratory effort Auscultation: lungs clear to auscultation bilaterally Cardiovascular Rate/Rhythm: regular rate, regular rhythm and + bradycardic Heart Sounds: no murmur Gastrointestinal (Abdomen) Inspection/Auscultation: abdomen normal to inspection and normal bowel sounds Discharge Data Allergies Allergy/AdvReac Type Severity Reaction Status Date / Time Penicillins Allergy Mild RASH Unverified 04/10/19 12:07 adhesive Allergy Unknown Verified 04/10/19 12:07 Consultations 04/10/19 13:16 ED Decision to Admit Stat 04/10/19 15:46 Consult Cardiology Routine 04/11/19 13:25 Consult Cardiac Rehabilitation Routine Procedures Performed Operation Date: 04/11/19 10:30 Actual Procedures p Cath, Left with Cors and Vent - Genaro Stanley MD s Cineradiography w/Routine Exam - Genaro Stanley MD s Drug Eluting Stent SGl Vessel - Genaro Stanley MD Ordered Studies 04/11/19 11:21 CL Cath Imgs for PACS use only Routine Hospital Course (1) Sinus bradycardia: This is a 79yo M with a PMH of HTN, BPH and glaucoma who presents with fatigue since yesterday. Was walking on the treadmill and felt extremely fatigued after 7-8 minutes yesterday and was found to have sinus bradycardia. -Fatigue and weakness following 7 minutes on treadmill yesterday. Denies any AMS ,chest pain, palpitations or SOB. BP stable -EKG with sinus bradycardia at 46 bpm , some J-point elevation -HR ranging from 40-50 since arrival -Serial cardiac enzymes remained unremarkable -Appreciate cardiology input -Status post positive stress echo -Status post cardiac cath with significant mid LAD stenosis -Status post Successful PCI of mid LAD with single drug-eluting stent (2.75 x 22 mm Syed; postdilated with 3.0 NC). -Continue dual antiplatelet for about 6 months as recommended -Remains tired but otherwise no complaints -Denies any symptoms following the cardiac cath and stent placement -EKG did show bradycardia which seems to be longstanding and does not require any further treatment -Discussed with de icer installer and he will be going home this afternoon Shortness of breath on presentation due to CAD. (2) HTN (hypertension): Normotensive. Continue lisinopril. Avoid AV danna blocking agents Blood pressure is controlled (3) BPH (benign prostatic hyperplasia): Continue finasteride, tamsulosin DVT Ppx: SQ heparin Code status: FULL PCP: Mike Ulrich Dispo: Admitted to PCU. Plan to return home once medically stable. Patient seen in collaboration with Dr. Meadows. Please see addendum. Total Time Total Time Spent Total Time Spent (In Minutes): 35 minutes Total Time Includes: Examination of the Patient, Discharge Planning, Medication Reconciliation and Communication With Other Providers Discharge Plan Discharge Items Patient Disposition: Home - Self-Care Reason For Visit: SINUS BRADYCARDIA Discharge Diagnosis: CAD status post successful PCI to mid LAD, bradycardia, hypertension Condition on Discharge: Good Activity: Resume your previous activity Non-emergency contact: Primary Care Provider Call non-emergency contact if: you have any medication questions and your symptoms worsen Follow-up/Referrals: Helena Ulrich MD [Primary Care Provider] - 04/15/19 10:45 am ([facility] cardiology office will call with appointment) Diet: Heart Healthy Addtl Attending Provider Instructions: Please take precaution to avoid falls Please take it easy for the next few weeks Continue current cardiac medications Pending Studies at Discharge: No Stand-Alone Forms: My Da[employer], Smoking Cessation Medications and DC Order Prescriptions: New clopidogrel 75 mg Tablet 75 mg PO QAM Qty: 30 RF: 0 atorvastatin 40 mg Tablet 40 mg PO DAILY Qty: 30 RF: 0 Continued lisinopril 20 mg tablet 20 mg PO DAILY RF: 0 travoprost [Travatan Z] 0.004 % drops 1 drp OPB DAILY RF: 0 aspirin 81 mg Tablet,Delayed Release (Dr/Ec) 81 mg PO Q2D RF: 0 tamsulosin 0.4 mg capsule 0.4 mg PO Q2D RF: 0 finasteride 5 mg tablet 5 mg PO HS RF: 0 dorzolamide 2 % Drops 2 drp OPR DAILY RF: 0 Alphagan P 0.1 % drops 1 drp OPR BID RF: 0 Discontinued atorvastatin [Lipitor] 10 mg Tablet 10 mg PO DAILY RF: 0 Discharge Orders: Discharge Order (Routine); Ordered 04/12/19 Ordered By: Juliana Langston Admission Data Admit Date/Time: 04/10/19 14:26 Attending Provider: Juliana Langston Admit Provider: Rosa Maria Meadows I. Primary Care Provider: Helena Ulrich Other Providers: Rosa Maria Meadows I. ; Talib Mcgowan Other Interventions: Discharge Summary Assessment (RN) Last Done: 04/12/19 10:44 DC Date/Time DO NOT enter until pt leaves facility: 04/12/19 13:23
[2019-04-13] MEDS ORDERED: ATORVASTATIN 40 MG TAB PO SCH (09:00)
--- NOTE | 2019-04-13 17:31 | Electrocardiogram Report ---
Test Reason : Blood Pressure : / mmHG Vent. Rate : 058 BPM Atrial Rate : 058 BPM P-R Int : 204 ms QRS Dur : 106 ms QT Int : 426 ms P-R-T Axes : 022 009 015 degrees QTc Int : 418 ms Sinus bradycardia Otherwise normal ECG When compared with ECG of 11-APR-2019 13:58, Nonspecific T wave abnormality now evident in Anterior leads Confirmed by Candido Robert ([id number]) on 04/13/2019 5:30:42 PM Referred By: REFERRED SELF Confirmed By:Luis Antonio Robert
== END 2019-04-12 13:23 | disposition home or self-care (01) | DRG 247 ==
LOC: ED 10:21 → 2S 14:26 → SUATTDRO 14:26 → 2S 15:24

== ENCOUNTER 2019-04-15 08:27 | Observation (INO) ==
[2019-04-15 09:28] LABS: Basophils # (auto) 0.05 K/uL (0-0.2); Eosinophils # (auto) 0.15 K/uL (0-0.5); Hematocrit (blood only) 37.8 % (42-52); Hemoglobin 13.3 g/dL (14.0-18.0); Immature Granulocytes # (auto) 0.01 K/uL (0.00-0.02); Immature Granulocytes % (auto) 0.2 %; Lymphocytes # (auto) 1.01 K/uL (1.2-3.4); Lymphocytes % (auto) 20.4 %; Mean Corpuscular Hemoglobin 33.3 pg (25-34); Mean Corpuscular Hgb Conc 35.2 g/dL (32-36); Mean Corpuscular Volume 94.5 fL (80-100); Mean Platelet Volume 10.1 fL (7.4-10.4); Monocytes # (auto) 0.42 K/uL (0.11-0.59); Monocytes % (auto) 8.5 %; Neutrophils # (auto) 3.32 K/uL (1.4-6.5); Neutrophils % (auto) 66.9 %; Platelet Count 188 K/uL (130-400); RDW Coefficient of Variation 13.4 % (11.5-14.5); White Blood Count 4.96 K/uL (4.8-10.8)
[2019-04-15 09:38] LABS: Partial Thromboplastin Ratio 0.8; Partial Thromboplastin Time 22.8 Seconds (21.0-31.0); Prothrombin Time 10.4 Seconds (9.0-12.0)
--- NOTE | 2019-04-15 09:38 | XRay Report ---
XR chest 1V portable CLINICAL HISTORY: Chest Pain COMPARISON STUDY: Chest radiograph April 10, 2019. FINDINGS: Lung volumes are at the lower limits of normal. Lungs are clear. There is no pneumothorax o r pleural effusion. Cardiac size is normal. Mediastinal contours are normal. There is no evidence for pulmonary edema. IMPRESSION: No acute cardiopulmonary findings. ACT 112: Negative or not required by law. Electronically signed by: Dante Francisco M.D. 04/15/2019 9:37 AM
--- NOTE | 2019-04-15 09:58 | Emergency Department Note ---
ED Visit Note Pt seen and examined by myself and discussed with Dr. Matamoros who saw him separately. Please refer to his note for any medical decision making. . Resident Activity Tracking Resident Involvement: Resident Care Provided Care Provided: Adult ED
[2019-04-15 10:01] LABS: Albumin Level 3.5 gm/dl (3.4-5.0); BUN Creatinine Ratio 20.2 (10-20); Bilirubin,Total 1.2 mg/dl (0.2-1); Calcium 8.6 mg/dl (8.5-10.1); Creatine Kinase MB 1.5 ng/ml (0.5-3.6); Est GFR (African American) 80.3; Est GFR (Non-African American) 69.3; Globulin 3.4 gm/dl (2.5-4.0); Potassium 3.9 mmol/L (3.5-5.1); Total Protein 6.9 gm/dl (6.4-8.2)
[2019-04-15 10:15] LABS: Troponin I 0.174 ng/ml (0-0.045)
[2019-04-15] MEDS ORDERED: SODIUM CHLORIDE 0.9% 1000ML 1,000 ML IV ONE (12:18)
--- NOTE | 2019-04-15 13:04 | Electrocardiogram Report ---
Test Reason : Blood Pressure : / mmHG Vent. Rate : 055 BPM Atrial Rate : 055 BPM P-R Int : 192 ms QRS Dur : 098 ms QT Int : 430 ms P-R-T Axes : 033 020 017 degrees QTc Int : 411 ms Sinus bradycardia Otherwise normal ECG When compared with ECG of 12-APR-2019 09:00, No significant change was found Confirmed by Candido Robert ([id number]) on 04/15/2019 1:04:23 PM Referred By: Confirmed By:Luis Antonio Robert
--- NOTE | 2019-04-15 13:43 | History & Physical Report ---
Date of Service April 15, 2019 Assessment & Plan (1) CAD (coronary artery disease): This is a 79yo M with a PMH of CAD with recent ABIODUN x 1 to mid LAD on 04/10/19, HTN, BPH and glaucoma who presents after episode of fatigue this morning. Patient had just finished eating breakfast and was walking around kitchen when he experienced sudden onset feeling of fatigue, nausea and diaphoresis. -Episode of nausea,diaphoresis and fatigue this morning in setting of recent ABIODUN to LAD on 04/10/19 -Feels similar to episode occurring on treadmill at the beginning of the week, prompting exercise stress test and cardiac cath with PCI -EKG with marked sinus bradycardia at 44 bpm. Initial troponin with elevation of 0.174 with repeat of 0.149 a few hours later. CXR without acute cardiopulmonary findings -Episodic symptoms possibly 2/2 vasovagal symptoms, but concern for stent occlusion or coronary spasm, although troponin downtrending. Also considering symptomatic bradycardia -Obtain orthostatic vitals, monitor on telemetry, trend troponin, routine cardiology consult (2) HTN (hypertension): Normotensive -Evaluating for orthostatics -Continue lisinopril, avoid AV danna blocking agents (3) BPH (benign prostatic hyperplasia): Continue tamsulosin, finasteride (4) Glaucoma: Will hold timolol component of Cosopt since it may be contributing to symptomatic bradycardia -Continue alphagan, dorzolamide, travoprost -Instructed patient to hold Cosopt until ophthalmology appt with Dr. Morris next week DVT Ppx: SQ heparin Code status: FULL PCP: Serg Dispo: Observation in PCU. Plan to return home once medically stable. Patient seen in collaboration with Dr. Langston. Please see addendum. History of Present Illness Chief Complaint: episode of fatigue and diaphoresis this morning Primary Care Provider: Helena Ulrich MD This is a 79yo M with a PMH of CAD with recent ABIODUN x 1 to mid LAD on 04/10/19, HTN, BPH and glaucoma who presents after episode of fatigue this morning. Patient had just finished eating breakfast and was walking around kitchen when he experienced sudden onset feeling of fatigue, nausea and diaphoresis. Patient sat down again and rested with symptoms of nausea and diaphoresis resolving within minutes. Continued to feel significantly fatigued, so brought patient to ED for further evaluation. Denies any near syncope, lightheadedness, dizziness, vomiting, chest pain, palpitations or SOB. Patient states that symptoms felt the same as what brought him into the hospital at the beginning of the week, prompting exercise stress test showing significant EKG changes that prompted PCI of mid LAD with ABIODUN x 1. From time of discharge until episode this morning, patient has felt back to baseline. Patient is to follow up with Dr. Mcgowan in cardiology clinic in the next few weeks. Has been taking aspirin, plavix and increased dose of atorvastatin as prescribed. Currently feeling fatigued. Denies fever, chills, lightheadedness, visual changes, chest pain, palpitations, SOB, nausea, vomiting, abdominal pain, dysuria, diarrhea or constipation. In ED, patient is afebrile and hemodynamically stable. HR ~45-50. EKG with marked sinus bradycardia at 44 bpm. Initial troponin with elevation of 0.174 with repeat of 0.149 a few hours later. CXR without acute cardiopulmonary findings. Allergies Allergy/AdvReac Type Severity Reaction Status Date / Time Penicillins Allergy Mild RASH Unverified 04/15/19 09: adhesive Allergy Unknown Verified 04/15/19 09:31 Home Medications Home Medications Medication Instructions Recorded Confirmed Type Alphagan P 1 drp OPR BID 04/10/19 04/15/19 History aspirin 81 mg PO QAM 04/10/19 04/15/19 History finasteride 5 mg PO HS 04/10/19 04/15/19 History lisinopril 20 mg PO QDL 04/10/19 04/15/19 History tamsulosin 0.4 mg PO Q2D@2100 04/10/19 04/15/19 History travoprost [Travatan Z] 1 drp OPB HS 04/10/19 04/15/19 History clopidogrel 75 mg PO QAM #30 tab 04/12/19 04/15/19 Rx atorvastatin 40 mg PO QAM 04/15/19 04/15/19 History dorzolamide-timolol (PF) [Cosopt 1 drp OPR BID 04/15/19 04/15/19 History (PF)] Past Med/Surg History Medical History BPH (benign prostatic hyperplasia) (Chronic) CAD (coronary artery disease) ABIODUN x 1 to LAD on 04/10/19 Glaucoma (Chronic) HTN (hypertension) (Chronic) Surgical History Hamstring tear with surgical repair Leg fracture with surgical repair Family History Mother Breast cancer Father Diabetes Coronary heart disease Social History Preferred Language: Danish Communication Ability: Effective Intelligence Officer Basic Required: No Beliefs That Will Affect Care: None Current Living Situation: Spouse Other Information That Helps Us Care for You: No Feels Safe at Home: Yes Safety Concerns: Feels Safe At This Time Smoking Status: Never smoker Do You Dip or Chew Tobacco: No ; Second Hand Exposure: No ; Tobacco Cessation Education Requested by Patient: No Hx Alcohol Use: Yes Hx Substance Use: No Review of Systems Review of Systems: At least ten systems reviewed and negative except as noted in the HPI. Physical Exam Physical Exam: General Appearance: WD/WN, vitals as above, pleasant, conversing easily Head: normocephalic, atraumatic Eyes: normal inspection, PERRL, conjunctivae normal, anicteric sclerae ENT: external ear and nose normal, oropharynx normal Neck: trachea midline, no thyromegaly normal visual inspection Respiratory: lungs clear to auscultation, no wheeze, rales, rhonchi. Normal insp/exp effort, no accessory muscle use Cardiovascular: regular rate, rhythm, no murmur, normal peripheral pulses. Vessels: no JVD or carotid bruit Chest: normal inspection of chest, no tenderness to palpation of chest wall Abdomen/GI: normal bowel sounds, soft, nontender, no hepatosplenomegaly Extremities/Musculoskelatal: no cyanosis or clubbing, extremities motor strength 5/5 Neurologic: PERRL, EOMI, accommodation nl, no face palsy, no dysarthria, CN's II-XI intact bilaterally and moves all extremities Psychiatric: A+Ox3, euthymic affect Skin: no rashes, normal color, warm/dry Results & Data Vital Signs (Past 12 Hours) Vital Signs Temp Pulse Resp BP Pulse Ox 04/15/19 13:01 48 L 15 149/84 H 98 04/15/19 13:00 45 L 22 99 04/15/19 12:31 43 L 18 97 04/15/19 12:30 44 L 16 136/72 98 04/15/19 12:00 45 L 17 116/68 96 04/15/19 11:31 48 L 16 97 04/15/19 11:30 49 L 17 117/67 96 04/15/19 11:02 51 L 18 97 04/15/19 11:01 52 L 19 137/84 97 04/15/19 11:00 50 L 21 96 04/15/19 10:31 54 L 18 96 04/15/19 10:30 48 L 18 116/63 96 04/15/19 10:01 53 L 22 97 04/15/19 10:00 52 L 19 125/72 95 04/15/19 09:31 51 L 21 149/84 H 97 04/15/19 09:30 48 L 22 98 04/15/19 09:22 56 L 20 100 04/15/19 09:16 68 20 04/15/19 09:15 58 L 15 150/81 H 04/15/19 09:10 100 04/15/19 09:09 57 L 17 160/86 H 99 04/15/19 09:00 53 L 18 98 04/15/19 08:47 51 L 24 100 04/15/19 08:35 36.4 C L 54 L 18 129/59 L 99 Laboratory Results Short CBC 04/15/19 04/15/19 04/15/19 Range/Units 08:45 08:45 11:34 WBC 4.96 (4.8-10.8) K/uL Hgb 13.3 L (14.0-18.0) g/dL Hct 37.8 L (42-52) % Plt Count 188 (130-400) K/uL Troponin I 0.174 H* 0.149 H* (0-0.045) ng/ml BMP 04/15/19 08:45 Sodium 138 Potassium 3.9 Chloride 107 Carbon Dioxide 26 BUN 21 H Creatinine 1.03 Glucose 167 H Calcium 8.6 Cardiac Enzymes 04/15/19 04/15/19 Range/Units 08:45 11:34 Total Creatine Kinase 82 (39-308) U/L CK-MB (CK-2) 1.5 (0.5-3.6) ng/ml Troponin I 0.174 H* 0.149 H* (0-0.045) ng/ml Liver Function 04/15/19 Range/Units 08:45 Total Bilirubin 1.2 H (0.2-1) mg/dl AST 25 (15-37) U/L ALT 35 (12-78) U/L Alkaline Phosphatase 73 (45-117) U/L Albumin 3.5 (3.4-5.0) gm/dl Diagnostic Findings CXR: IMPRESSION: No acute cardiopulmonary findings. ECG Rhythm: sinus bradycardia Code Status & VTE Plan VTE Prophylaxis Plan VTE Prophylaxis will be ordered: Yes Supervising Physician Co-Signing Physician Notes Attending addendum The patient was seen and examined in in the emergency room After finishing breakfast while he was trying to move around he got dizzy, profoundly weak, nausea and sweating The symptoms resolved on sitting down and has had these symptoms before LAD stent placement last week Denies any chest pain On examination No apparent distress at rest Noted to have bradycardia at upper 40s and systolic blood pressure elevated 154 range Chest-clear to auscultate bilaterally Heart-S1-S2 Abdomen-benign Extremities-negative for any edema His admission labs, EKG and imaging studies reviewed Has bradyarrhythmia for a long time Recent status post positive stress test and followed by LAD stent placement for CAD Remains bradycardic following the procedure Admitted to telemetry unit, rule out ACS and rule out any significant bradyarrhythmias Beta-trista in eyedrops has been discontinued We will get orthostasis parameters while in the hospital Admitted assessment and plan as outlined above by MADELINE Gore Dr
[2019-04-15] MEDS ORDERED: ONDANSETRON INJ 2 MG/ML 2 ML VIAL IV PRN (14:35)
[2019-04-15] MEDS ORDERED: ACETAMINOPHEN 325 MG TAB PO PRN (14:35)
[2019-04-15] MEDS ORDERED: POLYETHYLENE (MIRALAX) 17 GM PACK PO PRN (14:35)
--- NOTE | 2019-04-15 14:43 | Emergency Department Note ---
Entered by Malik Hernandez acting as a scribe for Singh Matamoros MD History of Present Illness General Chief complaint: Chest Pain Stated complaint: CHEST DISCOMFORT,SENT PLACEMENT THURSDAY Time Seen by Provider: 04/15/19 08:40 Source: patient History of Present Illness Onset (ago): hour(s) (this morning) Location: head Pain Consistency: + intermittent Quality: + other (lightheadedness) Exacerbated By: + movement (standing) Associated symptoms: + diaphoresis and + other (nausea); no chest pain and no shortness of breath The patient is a 79 y/o male who presents to the ED w/ CC of an episode of lightheadedness that occurred this morning. The patient states he had a stent placed two days ago due to lightheadedness, diaphoresis, and nausea while on the treadmill. He reports today he ate breakfast and had some water. The patient notes he tried to stand up and then felt lightheaded as if he was going to pass out. He states he also became diaphoretic again and nauseous. The patient reports he did not have active chest pain, chest pressure, or shortness of breath. He notes his symptoms today were similar to those prior to his stent. Home Medications Home Medications Medication Instructions Recorded Confirmed Type Alphagan P 1 drp OPR BID 04/10/19 04/15/19 History aspirin 81 mg PO QAM 04/10/19 04/15/19 History finasteride 5 mg PO HS 04/10/19 04/15/19 History lisinopril 20 mg PO QDL 04/10/19 04/15/19 History tamsulosin 0.4 mg PO Q2D@2100 04/10/19 04/15/19 History travoprost [Travatan Z] 1 drp OPB 04/10/19 04/15/19 History clopidogrel 75 mg PO QAM #30 tab 04/12/19 04/15/19 Rx atorvastatin 40 mg PO QAM 04/15/19 04/15/19 History Allergies Allergy/AdvReac Type Severity Reaction Status Date / Time Penicillins Allergy Mild RASH Unverified 04/15/19 09:31 adhesive Allergy Unknown Verified 04/15/19 09:31 Past Med/Surg History Medical History BPH (benign prostatic hyperplasia) (Chronic) CAD (coronary artery disease) ABIODUN x 1 to LAD on 04/10/19 Glaucoma (Chronic) HTN (hypertension) (Chronic) Surgical History Hamstring tear with surgical repair Leg fracture with surgical repair Family History Mother Breast cancer Father Diabetes Coronary heart disease Social History Preferred Language: [place] Communication Ability: Effective Loan Adviser Required: No Beliefs That Will Affect Care: None Current Living Situation: Spouse Feels Safe at Home: Yes Smoking Status: Never smoker Second Hand Exposure: No ; Hx Alcohol Use: Yes Hx Substance Use: No Review of Systems See HPI for pertinent positives & negatives. and A total of 10 systems reviewed and were otherwise negative Physical Exam Vital Signs Vital Signs - 24 hr 04/15/19 08:35 04/15/19 08:47 04/15/19 09:00 Temperature 36.4 C L Temperature Source Oral Pulse Rate 54 L 51 L 53 L Pulse Rate from SpO2 Sensor 54 L 51 L 52 L Pulse Rhythm Regular Pulse Strength Normal Respiratory Rate 18 24 18 Respiratory Effort / Characteristics Non-Labored Respiratory Depth Normal Respiratory Pattern Regular Blood Pressure 129/59 L Blood Pressure Mean 78 Blood Pressure Position Sitting Pulse Oximetry 99 100 98 Oxygen Delivery Method Room Air Sepsis Recent Fever Within 48 Hours No Sepsis New/Unexplained Change in Mental Status No Sepsis Action Taken by Nursing No Action Required 04/15/19 09:09 04/15/19 09:10 04/15/19 09:15 Temperature Temperature Source Pulse Rate 57 L 58 L Pulse Rate from SpO2 Sensor 56 L Pulse Rhythm Pulse Strength Respiratory Rate 17 15 Respiratory Effort / Characteristics Respiratory Depth Respiratory Pattern Blood Pressure 160/86 H 150/81 H Blood Pressure Mean 104 109 Blood Pressure Position Pulse Oximetry 99 100 Oxygen Delivery Method Room Air Sepsis Recent Fever Within 48 Hours Sepsis New/Unexplained Change in Mental Status Sepsis Action Taken by Nursing 04/15/19 09:16 04/15/19 09:22 04/15/19 09:30 Temperature Temperature Source Pulse Rate 68 56 L 48 L Pulse Rate from SpO2 Sensor 48 L Pulse Rhythm Pulse Strength Respiratory Rate 20 20 22 Respiratory Effort / Characteristics Respiratory Depth Respiratory Pattern Blood Pressure Blood Pressure Mean Blood Pressure Position Pulse Oximetry 100 98 Oxygen Delivery Method Room Air Sepsis Recent Fever Within 48 Hours Sepsis New/Unexplained Change in Mental Status Sepsis Action Taken by Nursing 04/15/19 09:31 04/15/19 10:00 04/15/19 10:01 Temperature Temperature Source Pulse Rate 51 L 52 L 53 L Pulse Rate from SpO2 Sensor 52 L 51 L 53 L Pulse Rhythm Pulse Strength Respiratory Rate 21 19 22 Respiratory Effort / Characteristics Respiratory Depth Respiratory Pattern Blood Pressure 149/84 H 125/72 Blood Pressure Mean 123 82 Blood Pressure Position Pulse Oximetry 97 95 97 Oxygen Delivery Method Sepsis Recent Fever Within 48 Hours Sepsis New/Unexplained Change in Mental Status Sepsis Action Taken by Nursing 04/15/19 10:30 04/15/19 10:31 04/15/19 11:00 Temperature Temperature Source Pulse Rate 48 L 54 L 50 L Pulse Rate from SpO2 Sensor 48 L 54 L 51 L Pulse Rhythm Pulse Strength Respiratory Rate 18 18 21 Respiratory Effort / Characteristics Respiratory Depth Respiratory Pattern Blood Pressure 116/63 Blood Pressure Mean 79 Blood Pressure Position Pulse Oximetry 96 96 96 Oxygen Delivery Method Sepsis Recent Fever Within 48 Hours Sepsis New/Unexplained Change in Mental Status Sepsis Action Taken by Nursing 04/15/19 11:01 04/15/19 11:02 04/15/19 11:30 Temperature Temperature Source Pulse Rate 52 L 51 L 49 L Pulse Rate from SpO2 Sensor 52 L 51 L 51 L Pulse Rhythm Pulse Strength Respiratory Rate 19 18 17 Respiratory Effort / Characteristics Respiratory Depth Respiratory Pattern Blood Pressure 137/84 117/67 Blood Pressure Mean 99 82 Blood Pressure Position Pulse Oximetry 97 97 96 Oxygen Delivery Method Sepsis Recent Fever Within 48 Hours Sepsis New/Unexplained Change in Mental Status Sepsis Action Taken by Nursing 04/15/19 11:31 04/15/19 12:00 04/15/19 12:30 Temperature Temperature Source Pulse Rate 48 L 45 L 44 L Pulse Rate from SpO2 Sensor 49 L 45 L 44 L Pulse Rhythm Pulse Strength Respiratory Rate 16 17 16 Respiratory Effort / Characteristics Respiratory Depth Respiratory Pattern Blood Pressure 116/68 136/72 Blood Pressure Mean 84 97 Blood Pressure Position Pulse Oximetry 97 96 98 Oxygen Delivery Method Sepsis Recent Fever Within 48 Hours Sepsis New/Unexplained Change in Mental Status Sepsis Action Taken by Nursing 04/15/19 12:31 04/15/19 13:00 04/15/19 13:01 Temperature Temperature Source Pulse Rate 43 L 45 L 48 L Pulse Rate from SpO2 Sensor 43 L 45 L 48 L Pulse Rhythm Pulse Strength Respiratory Rate 18 22 15 Respiratory Effort / Characteristics Respiratory Depth Respiratory Pattern Blood Pressure 149/84 H Blood Pressure Mean 116 Blood Pressure Position Pulse Oximetry 97 99 98 Oxygen Delivery Method Sepsis Recent Fever Within 48 Hours Sepsis New/Unexplained Change in Mental Status Sepsis Action Taken by Nursing 04/15/19 13:02 04/15/19 13:30 Temperature Temperature Source Pulse Rate 46 L 45 L Pulse Rate from SpO2 Sensor 47 L 46 L Pulse Rhythm Pulse Strength Respiratory Rate 20 15 Respiratory Effort / Characteristics Respiratory Depth Respiratory Pattern Blood Pressure 167/78 H Blood Pressure Mean 105 Blood Pressure Position Pulse Oximetry 99 99 Oxygen Delivery Method Sepsis Recent Fever Within 48 Hours Sepsis New/Unexplained Change in Mental Status Sepsis Action Taken by Nursing GENERAL: Awake, alert, well-appearing, in no acute distress HENT: Normocephalic, atraumatic. Oropharynx unremarkable. EYES: Normal conjunctiva. Sclera non-icteric. NECK: Supple. No nuchal rigidity. FROM. No JVD. RESPIRATORY: Clear to auscultation. CARDIAC: Bradycardic rate, normal rhythm. Extremities warm and well perfused. Pulses equal. ABDOMEN: Soft, non-distended. No tenderness to palpation. No rebound or guarding. No masses. RECTAL: Deferred. MUSCULOSKELETAL: Chest examination reveals no tenderness. The back is symmetrical on inspection without obvious abnormality. There is no CVA ten derness to palpation. No joint edema. LOWER EXTREMITIES: Calves are equal size bilaterally and non-tender. No edema. No discoloration. NEURO: Normal sensorium. No sensory or motor deficits noted. SKIN: No rash or jaundice noted. Course Course 0902: Past medical records reviewed. The patient was evaluated in room B12B by the resident under my supervision. A complete history and physical exam was performed. 1024: The resident discussed the patient's case with Natasha [facility] Cardiology. He recommends the patient have a repeat troponin level completed around 1130. If his level is going down, the patient may be discharged home. 1231: Past medical records reviewed. The patient was evaluated in room B12B by me. A complete history and physical exam was performed. I updated the patient of his repeat troponin level and test results. His heart rate has decreased. Another EKG was ordered. 1242: I reviewed the patient's case with Dr. Freeman, [facility] Hospitalist. She will evaluate the patient for further management. Administered Medications Discontinued Medications Aspirin (Ecotrin Ectab) 81 mg PO [facility] Stop: 05/15/19 14:44 Last Admin: 04/17/19 07:56 Dose: 81 mg Documented by: [id number] Admin: 04/16/19 08:44 Dose: 81 mg Documented by: [id number] Admin: 04/15/19 16:37 Dose: 81 mg Documented by: [id number] Atorvastatin Calcium (Lipitor) 40 mg PO [facility] Stop: 05/16/19 08:59 Last Admin: 04/17/19 07:55 Dose: 40 mg Documented by: [id number] Admin: 04/16/19 09:57 Dose: 40 mg Documented by: [id number] Clopidogrel Bisulfate (Plavix) 75 mg PO [facility] Stop: 05/16/19 08:59 Last Admin: 04/17/19 07:55 Dose: 75 mg Documented by: [id number] Admin: 04/16/19 08:44 Dose: 75 mg Documented by: [id number] Dorzolamide HCl (Trusopt 2% Oph) 1 drops OPR BID [facility] Stop: 05/15/19 20:59 Last Admin: 04/17/19 07:55 Dose: 1 drops Documented by: [id number] Admin: 04/16/19 17:11 Dose: 1 drops Documented by: [id number] Admin: 04/16/19 08:45 Dose: 1 drops Documented by: [id number] Admin: 04/15/19 21:00 Dose: Not Given Documented by: [id number] Finasteride (Proscar) 5 mg PO HS [facility] Stop: 05/15/19 20:59 Last Admin: 04/16/19 21:33 Dose: 5 mg Documented by: [id number] Cosigned by: [id number] Admin: 04/15/19 21:00 Dose: 5 mg Documented by: [id number] Heparin Sodium (Porcine) (Heparin Sodium (Porcine)) 5,000 units SQ Q12 [facility] Stop: 05/15/19 20:59 Last Admin: 04/17/19 07:56 Dose: 5,000 units Documented by: [id number] Cosigned by: [id number] Admin: 04/16/19 21:34 Dose: 5,000 units Documented by: [id number] Cosigned by: [id number] Admin: 04/16/19 08:45 Dose: Not Given Documented by: [id number] Admin: 04/15/19 21:00 Dose: 5,000 units Documented by: [id number] Cosigned by: [id number] Sodium Chloride (Nss 1000ml) 1,000 mls @ 999 mls/hr IV .Q1H1M ONE Stop: 04/15/19 13:18 Last Infusion: 04/15/19 13:38 Dose: 0 mls/hr Documented by: [id number] Admin: 04/15/19 12:32 Dose: 999 mls/hr Documented by: [id number] Lisinopril (Zestril) 20 mg PO QDL [facility] Stop: 05/15/19 14:44 Last Admin: 04/15/19 16:37 Dose: 20 mg Documented by: [id number] Miscellaneous (Order Awaiting Action) 1 ea N/A QS [facility] Stop: 05/15/19 15:59 Last Admin: 04/17/19 07:13 Dose: Not Given Documented by: [id number] Admin: 04/17/19 00:00 Dose: Not Given Documented by: [id number] Admin: 04/16/19 16:43 Dose: Not Given Documented by: [id number] Admin: 04/16/19 08:45 Dose: Not Given Documented by: [id number] Admin: 04/16/19 00:00 Dose: Not Given Documented by: [id number] Admin: 04/15/19 16:05 Dose: Not Given Documented by: [id number] Potassium Chloride (Klor-Con M20) 40 meq PO NOW [facility] Stop: 04/16/19 09:32 Last Admin: 04/16/19 09:57 Dose: 40 meq Documented by: [id number] Tamsulosin HCl (Flomax) 0.4 mg PO Q2D@2100 [facility] Stop: 05/16/19 20:59 Last Admin: 04/16/19 21:33 Dose: 0.4 mg Documented by: [id number] Cosigned by: [id number] Medical Decision Making Differential Diagnosis Differential diagnosis includes etiologies such as benign positional vertigo, dehydration, hypovolemia, anemia, tumor, infection, hypoglycemia, electrolyte a bnormalities, cardiac sources, intracerebral event, toxicologic, neurologic, as well as others were entertained. Medical Records Attestation: I reviewed the patient's medical records. Home Medications Current Medication List: was personally reviewed by me Laboratory Data Attestation: I reviewed the patient's lab results. Result diagrams: 04/16/19 05:19 04/17/19 06:03 Lab Results 04/15/19 04/15/19 04/15/19 Range/Units 08:45 08:45 08:45 WBC 4.96 (4.8-10.8) K/uL RBC 4.00 L (4.7-6.1) M/uL Hgb 13.3 L (14.0-18.0) g/dL Hct 37.8 L (42-52) % MCV 94.5 (80-100) fL MCH 33.3 (25-34) pg MCHC 35.2 (32-36) g/dL RDW Std Deviation 46.0 (36.4-46.3) fL RDW Coeff of Jak 13.4 (11.5-14.5) % Plt Count 188 (130-400) K/uL MPV 10.1 (7.4-10.4) fL Immature Gran % (Auto) 0.2 % Neut % (Auto) 66.9 % Lymph % (Auto) 20.4 % [place] % (Auto) 8.5 % Eos % (Auto) 3.0 % Baso % (Auto) 1.0 % Immature Gran # (Auto) 0.01 (0.00-0.02) K/uL Neut # (Auto) 3.32 (1.4-6.5) K/uL Lymph # (Auto) 1.01 L (1.2-3.4) K/uL Summit # (Auto) 0.42 (0.11-0.59) K/uL Eos # (Auto) 0.15 (0-0.5) K/uL Baso # (Auto) 0.05 (0-0.2) K/uL PT 10.4 (9.0-12.0) Seconds INR 1.0 (0.9-1.1) APTT 22.8 (21.0-31.0) Seconds PTT Ratio 0.8 Sodium 138 (136-145) mmol/L Potassium 3.9 (3.5-5.1) mmol/L Chloride 107 (98-107) mmol/L Carbon Dioxide 26 (21-32) mmol/L Anion Gap 5.0 (3-11) BUN 21 H (7-18) mg/dl Creatinine 1.03 (0.6-1.4) mg/dl Est Cr Clr Drug Dosing 63.0 ml/min Est GFR ( Amer) 80.3 Est GFR (Non-Af Amer) 69.3 BUN/Creatinine Ratio 20.2 H (10-20) Glucose 167 H (70-99) mg/dl Calcium 8.6 (8.5-10.1) mg/dl Total Bilirubin 1.2 H (0.2-1) mg/dl AST 25 (15-37) U/L ALT 35 (12-78) U/L Alkaline Phosphatase 73 (45-117) U/L Total Creatine Kinase 82 (39-308) U/L CK-MB (CK-2) 1.5 (0.5-3.6) ng/ml CK/CKMB % Calc 1.8 (0-3.0) Troponin I 0.174 H* (0-0.045) ng/ml Total Protein 6.9 (6.4-8.2) gm/dl Albumin 3.5 (3.4-5.0) gm/dl Globulin 3.4 (2.5-4.0) gm/dl Albumin/Globulin Ratio 1.0 (0.9-2) Lipase 83 (73-393) U/L Specimen Hemolysis 04/15/19 Range/Units 11:34 WBC (4.8-10.8) K/uL RBC (4.7-6.1) M/uL Hgb (14.0-18.0) g/dL Hct (42-52) % MCV (80-100) fL MCH (25-34) pg MCHC (32-36) g/dL RDW Std Deviation (36.4-46.3) fL RDW Coeff of Jak (11.5-14.5) % Plt Count (130-400) K/uL MPV (7.4-10.4) fL Immature Gran % (Auto) % Neut % (Auto) % Lymph % (Auto) % [place] % (Auto) % Eos % (Auto) % Baso % (Auto) % Immature Gran # (Auto) (0.00-0.02) K/uL Neut # (Auto) (1.4-6.5) K/uL Lymph # (Auto) (1.2-3.4) K/uL Summit # (Auto) (0.11-0.59) K/uL Eos # (Auto) (0-0.5) K/uL Baso # (Auto) (0-0.2) K/uL PT (9.0-12.0) Seconds INR (0.9-1.1) APTT (21.0-31.0) Seconds PTT Ratio Sodium (136-145) mmol/L Potassium (3.5-5.1) mmol/L Chloride (98-107) mmol/L Carbon Dioxide (21-32) mmol/L Anion Gap (3-11) BUN (7-18) mg/dl Creatinine (0.6-1.4) mg/dl Est Cr Clr Drug Dosing ml/min Est GFR ( Amer) Est GFR (Non-Af Amer) BUN/Creatinine Ratio (10-20) Glucose (70-99) mg/dl Calcium (8.5-10.1) mg/dl Total Bilirubin (0.2-1) mg/dl AST (15-37) U/L ALT (12-78) U/L Alkaline Phosphatase (45-117) U/L Total Creatine Kinase (39-308) U/L CK-MB (CK-2) (0.5-3.6) ng/ml CK/CKMB % Calc (0-3.0) Troponin I 0.149 H* (0-0.045) ng/ml Total Protein (6.4-8.2) gm/dl Albumin (3.4-5.0) gm/dl Globulin (2.5-4.0) gm/dl Albumin/Globulin Ratio (0.9-2) Lipase (73-393) U/L Specimen Hemolysis Imaging Data Radiologist's Impression: Radiology results as stated below per my review and the radiologist's interpretation: XR chest 1V portable CLINICAL HISTORY: Chest Pain COMPARISON STUDY: Chest radiograph April 10, 2019. FINDINGS: Lung volumes are at the lower limits of normal. Lungs are clear. There is no pneumothorax or pleural effusion. Cardiac size is normal. Mediastinal contours are normal. There is no evidence for pulmonary edema. IMPRESSION: No acute cardiopulmonary findings. ACT 112: Negative or not required by law. Electronically signed by: Dante Francisco M.D. 04/15/2019 9:37 AM ECG Data Attestation: I personally reviewed and interpreted this ECG as follows: Indication: + other (lightheaded/dizzy) Rate (beats per minute): 55 Rhythm: + sinus bradycardia ECG ST segments: no ST depression and no ST elevation ECG Findings: + Other (QTc 411); no PACs and no PVCs Additional Comments: REPEAT EKG IN THE SAME ED VISIT: Sinus bradycardia with a rate of 44. QTc of 389. No ST elevation or depression. Blood Pressure Blood Pressure Findings: Elevated blood pressure Blood Pressure Disposition: further management by hospitalist MDM Narrative This is a 79-year-old male who presents emergency department complaining of nausea. The patient's heart rate was found to be low and sometimes dipping down into the 30s. I am concerned he is having symptomatic bradycardia. He was found to have an elevation in his troponin. I did discuss the case with the hospitalist service who did agree to admit the patient. Patient was in agreemen t with the treatment plan. Impression & Plan Sinus bradycardia, Weakness Discharge Plan Visit Data *Final* Discharge Date/Time: 04/15/19 14:04 Chief Complaint: Chest Pain Stated Complaint: CHEST DISCOMFORT,SENT PLACEMENT THURSDAY ED Provider: Singh Matamoros ED Midlevel Provider: Sammi Vu Discharge Problem: Sinus bradycardia, Weakness Patient Disposition: Admitted As Inpatient Discharge Instructions Interventions: ED Discharge Assessment Last Done: 04/15/19 14:04 The scribe's documentation has been prepared under my direction and personally reviewed by me in its entirety. I confirm that the note above accurately reflects all work, treatment, procedures, and medical decision making performed by me.
[2019-04-15] MEDS ORDERED: lisinopriL 20 MG TAB PO SCH (14:45)
--- NOTE | 2019-04-15 15:51 | Cardiology Consultation ---
Date of Consultation April 15, 2019 Assessment & Plan (1) Orthostatic hypotension: His presenting symptom is consistent with orthostatic hypotension along with his history of chronic volume depletion. He is also prerenal by numbers. We will give 1 L of IV fluids at this time. Counseled as to the need to maintain proper hydration. (2) CAD (coronary artery disease): Stable I do not believe the minimal troponin elevation represents ischemia rather resolution of his PCI No further testing is indicated at this time. (3) BPH (benign prostatic hyperplasia): Does follow with urology as an outpatient and recommend he continue to do so History of Present Illness Reason for Consultation: Lightheadedness Requesting Physician: Dr. Langston Attending Physician: Juliana Langston MD History of Present Illness It was my pleasure to see Mr. Santos in consultation today April 15, 2019. He is a very pleasant 79-year-old gentleman who underwent PCI to his LAD earlier this week. He presented to [facility] emergency department on 04/15/2019 with complaints of an episode of lightheadedness. Patient states that he has been feeling well since discharge of his normal state of health this a.m. when arising from the breakfast table he started to feel lightheaded. He states he felt himself become unsteady and held onto the counter and his notes that he did not look right and seemed a little pale. His then became concerned and brought him into the emergency department. Initial troponin was slightly above reference range and the patient was admitted. Patient seen and examined states that he currently feels well. Upon further questioning patient states he only had coffee to drink with breakfast and that he routinely avoids drinking water due to his ongoing prostate issues. He notes that both his and 2 children know that he is not drinking of water on a regular basis. He has been compliant with his medication since discharge and has not had any chest pain or shortness of breath. Allergies Allergy/AdvReac Type Severity Reaction Status Date / Time Penicillins Allergy Mild RASH Unverified 04/15/19 09:31 adhesive Allergy Unknown Verified 04/15/19 09:31 Home Medications Home Medications Medication Instructions Recorded Confirmed Type Alphagan P 1 drp OPR BID 04/10/19 04/15/19 History aspirin 81 mg PO QAM 04/10/19 04/15/19 History finasteride 5 mg PO HS 04/10/19 04/15/19 History lisinopril 20 mg PO QDL 04/10/19 04/15/19 History tamsulosin 0.4 mg PO Q2D@2100 04/10/19 04/15/19 History travoprost [Travatan Z] 1 drp OPB HS 04/10/19 04/15/19 History clopidogrel 75 mg PO QAM #30 tab 04/12/19 04/15/19 Rx atorvastatin 40 mg PO QAM 04/15/19 04/15/19 History dorzolamide-timolol (PF) [Cosopt 1 drp OPR BID 04/15/19 04/15/19 History (PF)] Patient History Medical History BPH (benign prostatic hyperplasia) (Chronic) CAD (coronary artery disease) ABIODUN x 1 to LAD on 04/10/19 Glaucoma (Chronic) HTN (hypertension) (Chronic) Surgical History Hamstring tear with surgical repair Leg fracture with surgical repair Family History Mother Breast cancer Father Diabetes Coronary heart disease Social History Preferred Language: Mosotho Communication Ability: Effective Elevator Builder Required: No Beliefs That Will Affect Care: None Current Living Situation: Spouse Other Information That Helps Us Care for You: No Feels Safe at Home: Yes Safety Concerns: Feels Safe At This Time Smoking Status: Never smoker Do You Dip or Chew Tobacco: No ; Second Hand Exposure: No ; Tobacco Cessation Education Requested by Patient: No Hx Alcohol Use: Yes Hx Substance Use: No Review of Systems Review of Systems: All systems reviewed & are unremarkable except as noted in HPI & below Physical Exam Physical Exam: General: Awake, alert and oriented x 3. No acute distress. HEENT: Normocephalic, atraumatic. Pupils equal, round and reactive to light and accommodation. Extraocular muscles are intact. Anicteric sclera. Moist mucous membranes. Neck: No JVD. No bruit. Cardiovascular: Regular. Positive S-4. Normal S-1 and S-2. No S-3. No murmurs or rubs. Pulmonary: Clear to auscultation B/L. No rales, rhonchi or wheezing Abdomen: Bowel sounds x 4, soft. No rebound, guarding or tenderness. No organomegaly. Extremities: No clubbing, cyanosis or edema. +2 pedal pulses bilaterally. Skin: Warm and dry. Results & Data Vital Signs (Past 12 Hours) Vital Signs Temp Pulse Pulse Resp BP BP Pulse Ox 04/15/19 14:35 36.6 C 64 16 166/67 H 98 04/15/19 14:01 47 L 15 96 04/15/19 14:00 44 L 18 129/72 98 04/15/19 13:30 45 L 15 167/78 H 99 04/15/19 13:02 46 L 20 99 04/15/19 13:01 48 L 15 149/84 H 98 04/15/19 13:00 45 L 22 99 04/15/19 12:31 43 L 18 97 04/15/19 12:30 44 L 16 136/72 98 04/15/19 12:00 45 L 17 116/68 96 04/15/19 11:31 48 L 16 97 04/15/19 11:30 49 L 17 117/67 96 04/15/19 11:02 51 L 18 97 04/15/19 11:01 52 L 19 137/84 97 04/15/19 11:00 50 L 21 96 04/15/19 10:31 54 L 18 96 04/15/19 10:30 48 L 18 116/63 96 04/15/19 10:01 53 L 22 97 04/15/19 10:00 52 L 19 125/72 95 04/15/19 09:31 51 L 21 149/84 H 97 04/15/19 09:30 48 L 22 98 04/15/19 09:22 56 L 20 100 04/15/19 09:16 68 20 04/15/19 09:15 58 L 15 150/81 H 04/15/19 09:10 100 04/15/19 09:09 57 L 17 160/86 H 99 04/15/19 09:00 53 L 18 98 04/15/19 08:47 51 L 24 100 04/15/19 08:35 36.4 C L 54 L 18 129/59 L 99 Laboratory Results Laboratory Results - last 24 hr 04/15/19 04/15/19 04/15/19 08:45 08:45 08:45 WBC 4.96 RBC 4.00 L Hgb 13.3 L Hct 37.8 L MCV 94.5 MCH 33.3 MCHC 35.2 RDW Std Deviation 46.0 RDW Coeff of Jak 13.4 Plt Count 188 MPV 10.1 Immature Gran % (Auto) 0.2 Neut % (Auto) 66.9 Lymph % (Auto) 20.4 Fleming % (Auto) 8.5 Eos % (Auto) 3.0 Baso % (Auto) 1.0 Immature Gran # (Auto) 0.01 Neut # (Auto) 3.32 Lymph # (Auto) 1.01 L Fleming # (Auto) 0.42 Eos # (Auto) 0.15 Baso # (Auto) 0.05 PT 10.4 INR 1.0 APTT 22.8 PTT Ratio 0.8 Sodium 138 Potassium 3.9 Chloride 107 Carbon Dioxide 26 Anion Gap 5.0 BUN 21 H Creatinine 1.03 Est Cr Clr Drug Dosing 63.0 Est GFR ( Amer) 80.3 Est GFR (Non-Af Amer) 69.3 BUN/Creatinine Ratio 20.2 H Glucose 167 H Calcium 8.6 Total Bilirubin 1.2 H AST 25 ALT 35 Alkaline Phosphatase 73 Total Creatine Kinase 82 CK-MB (CK-2) 1.5 CK/CKMB % Calc 1.8 Troponin I 0.174 H* Total Protein 6.9 Albumin 3.5 Globulin 3.4 Albumin/Globulin Ratio 1.0 Lipase 83 Specimen Hemolysis 04/15/19 11:34 WBC RBC Hgb Hct MCV MCH MCHC RDW Std Deviation RDW Coeff of Jak Plt Count MPV Immature Gran % (Auto) Neut % (Auto) Lymph % (Auto) Fleming % (Auto) Eos % (Auto) Baso % (Auto) Immature Gran # (Auto) Neut # (Auto) Lymph # (Auto) Fleming # (Auto) Eos # (Auto) Baso # (Auto) PT INR APTT PTT Ratio Sodium Potassium Chloride Carbon Dioxide Anion Gap BUN Creatinine Est Cr Clr Drug Dosing Est GFR ( Amer) Est GFR (Non-Af Amer) BUN/Creatinine Ratio Glucose Calcium Total Bilirubin AST ALT Alkaline Phosphatase Total Creatine Kinase CK-MB (CK-2) CK/CKMB % Calc Troponin I 0.149 H* Total Protein Albumin Globulin Albumin/Globulin Ratio Lipase Specimen Hemolysis
[2019-04-15] MEDS: ASPIRIN 81 MG ECTAB PO SCH (16:37)
--- NOTE | 2019-04-15 17:32 | Electrocardiogram Report ---
Test Reason : Blood Pressure : / mmHG Vent. Rate : 044 BPM Atrial Rate : 044 BPM P-R Int : 200 ms QRS Dur : 096 ms QT Int : 456 ms P-R-T Axes : 036 014 030 degrees QTc Int : 389 ms Marked sinus bradycardia Abnormal ECG When compared with ECG of 15-APR-2019 08:34, No significant change was found Confirmed by Candido Robert ([id number]) on 04/15/2019 5:32:10 PM Referred By: REFERRED SELF Confirmed By:Luis Antonio Robert
[2019-04-15] MEDS: TRAVOPROST Z 0.004% OPH SOLN 2.5 ML BTL OPB SCH (21:00)
[2019-04-15] MEDS: DORZOLAMIDE HCL 2% OPH SOLN 10 ML BTL OPR SCH (21:00)
[2019-04-15] MEDS: FINASTERIDE 5 MG TAB PO SCH (21:00)
[2019-04-15] MEDS: HEPARIN SOD 5,000 UNIT/0.5 ML VIAL SQ SCH (21:00)
[2019-04-16 05:51] LABS: Hematocrit (blood only) 34.7 % (42-52); Hemoglobin 12.2 g/dL (14.0-18.0); Mean Corpuscular Hemoglobin 32.8 pg (25-34); Mean Corpuscular Hgb Conc 35.2 g/dL (32-36); Mean Corpuscular Volume 93.3 fL (80-100); Mean Platelet Volume 9.7 fL (7.4-10.4); Platelet Count 158 K/uL (130-400); RDW Coefficient of Variation 13.4 % (11.5-14.5); RDW Standard Deviation 45.7 fL (36.4-46.3); Red Blood Count 3.72 M/uL (4.7-6.1); White Blood Count 5.08 K/uL (4.8-10.8)
[2019-04-16 06:19] LABS: Calcium 8.4 mg/dl (8.5-10.1); Est GFR (African American) 94.5; Est GFR (Non-African American) 81.5; Potassium 3.6 mmol/L (3.5-5.1)
[2019-04-16] MEDS: CLOPIDOGREL BISULFATE 75 MG TAB PO SCH (08:44)
[2019-04-16] MEDS: ASPIRIN 81 MG ECTAB PO SCH (08:44)
[2019-04-16] MEDS: DORZOLAMIDE HCL 2% OPH SOLN 10 ML BTL OPR SCH ×2 (08:45→17:11)
[2019-04-16] MEDS: HEPARIN SOD 5,000 UNIT/0.5 ML VIAL SQ SCH ×2 (08:45→21:34)
[2019-04-16] MEDS ORDERED: POTASSIUM CHLORIDE 20 MEQ TABCR PO STA (09:31)
[2019-04-16] MEDS: ATORVASTATIN 40 MG TAB PO SCH (09:57)
--- NOTE | 2019-04-16 11:30 | Cardiology Progress Note ---
Date of Service April 16, 2019 Assessment & Plan (1) Orthostatic hypotension: (2) CAD (coronary artery disease): (3) Sinus bradycardia: (4) BPH (benign prostatic hyperplasia): The patient states that he is always had low blood pressure and a low heart rate since he was in college. I would recommend continued orthostatic blood pressure checks. I am going to hold his lisinopril due to hypotension. I will also hold his Flomax which she has taken for several decades but may be contributing. He is to take that every other day by the instruction of his urologist. Otherwise believe patient is stable. He should stay until tomorrow in the hospital and then be reevaluated for possible discharge. Subjective The patient has no complaints this morning. No dizziness or lightheadedness. Review of Systems Review of Systems: All systems reviewed & are unremarkable except as noted in HPI & below Nothing additional to add. Physical Exam Physical Exam: General: no acute distress and stated age Head: normocephalic, no masses, lesions, tenderness or abnormalities Eyes: conjunctiva are pink and non-injected, sclera clear Neck: supple, no adenopathy, no bruits, normal jugular venous pulse, no hepatojugular reflux Chest: normal shape and normal respiratory effort Lungs: clear to auscultation and percussion Cardiac Exam: - regular rate & rhythm, no murmurs gallops or rubs - normal S1, normal S2 Pulses: 2(+) throughout Abdomen: abdomen soft, non-tender, no abnormal masses and no hepatosplenomegaly Musculoskeletal: no gait disturbance, no joint inflammation, no deforming arthritis Extremities: no edema and no cyanosis Neuro: grossly normal exam Results & Data Vital Signs (Past 12 Hours) Vital Signs Temp Pulse Pulse Resp BP Pulse Ox 04/16/19 08:00 46 L 04/16/19 07:01 36.6 C 48 L 16 105/68 93 04/16/19 03:09 36.7 C 51 L 16 115/65 97 04/16/19 00:00 45 L Laboratory Results Laboratory Results - last 24 hr 04/15/19 04/15/19 04/15/19 11:34 17:25 23:56 WBC RBC Hgb Hct MCV MCH MCHC RDW Std Deviation RDW Coeff of Jak Plt Count MPV Sodium Potassium Chloride Carbon Dioxide Anion Gap BUN Creatinine Est Cr Clr Drug Dosing Est GFR ( Amer) Est GFR (Non-Af Amer) BUN/Creatinine Ratio Glucose Calcium Troponin I 0.149 H* 0.138 H* 0.144 H* 04/16/19 04/16/19 05:19 05:19 WBC 5.08 RBC 3.72 L Hgb 12.2 L Hct 34.7 L MCV 93.3 MCH 32.8 MCHC 35.2 RDW Std Deviation 45.7 RDW Coeff of Jak 13.4 Plt Count 158 MPV 9.7 Sodium 143 Potassium 3.6 Chloride 110 H Carbon Dioxide 30 Anion Gap 3.0 BUN 22 H Creatinine 0.90 Est Cr Clr Drug Dosing 72.0 Est GFR ( Amer) 94.5 Est GFR (Non-Af Amer) 81.5 BUN/Creatinine Ratio 24.0 H Glucose 94 Calcium 8.4 L Troponin I Medications Administered Current Inpatient Medications Acetaminophen (Tylenol) 650 mg PO Q4H PRN PRN Reason: Pain or Fever Stop: 05/15/19 14:34 Asp[facility] [place]: 05/15/19 14:44 Last Admin: 04/16/19 08:44 Dose: 81 mg Documented by: Atorvastatin Calcium (Lipitor) 40 mg PO QAM [facility] Stop: 05/16/19 08:59 Last Admin: 04/16/19 09:57 Dose: 40 mg Documented by: Clopidogrel Bisulfate (Plavix) 75 mg PO QAM [facility] Stop: 05/16/19 08:59 Last Admin: 04/16/19 08:44 Dose: 75 mg Documented by: Dorzolamide HCl (Trusopt 2% Oph) 1 drops OPR BID [facility] Stop: 05/15/19 20:59 Last Admin: 04/16/19 08:45 Dose: 1 drops Documented by: Finasteride (Proscar) 5 mg PO HS [facility] Stop: 05/15/19 20:59 Last Admin: 04/15/19 21:00 Dose: 5 mg Documented by: Heparin Sodium (Porcine) (Heparin Sodium (Porcine)) 5,000 units SQ Q12 [facility] Stop: 05/15/19 20:59 Last Admin: 04/16/19 08:45 Dose: Not Given Documented by: Lisinopril (Zestril) 20 mg PO QDL [facility] Stop: 05/15/19 14:44 Last Admin: 04/15/19 16:37 Dose: 20 mg Documented by: Miscellaneous (Order Awaiting Action) 1 ea N/A QS [facility] Stop: 05/15/19 15:59 Last Admin: 04/16/19 08:45 Dose: Not Given Documented by: Ondansetron HCl (Zofran) 4 mg IV Q6H PRN PRN Reason: Nausea Stop: 05/15/19 14:34 Polyethylene Glycol (Miralax Powder Packet) 17 gm PO DAILY PRN PRN Reason: Constipation Stop: 05/15/19 14:34 Tamsulosin HCl (Flomax) 0.4 mg PO Q2D@2100 [facility] Stop: 05/16/19 20:59
--- NOTE | 2019-04-16 14:30 | Hospitalist Progress Note ---
Date of Service April 16, 2019 Assessment & Plan (1) CAD (coronary artery disease): This is a 79yo M with a PMH of CAD with recent ABIODUN x 1 to mid LAD on 04/10/19, HTN, BPH and glaucoma who presents after episode of fatigue this morning. Patient had just finished eating breakfast and was walking around kitchen when he experienced sudden onset feeling of fatigue, nausea and diaphoresis. -Episode of nausea,diaphoresis and fatigue morning of admission, in setting of recent ABIODUN to LAD on 04/10/19 -Feels similar to episode occurring on treadmill at the beginning of the week, prompting exercise stress test and cardiac cath with PCI -EKG with marked sinus bradycardia at 44 bpm. Initial troponin with elevation of 0.174 with repeat of 0.149 a few hours later. CXR without acute cardiopulmonary findings -Episodic symptoms possibly 2/2 vasovagal symptoms, but concern for stent occlusion or coronary spasm, although troponin downtrending. Also considering symptomatic bradycardia -Obtain orthostatic vitals, monitor on telemetry, trend troponin, routine cardiology consult - received IVF on admission - hold lisinopril, flomax, recheck orthostatic VS, cont. to monitor overnight (2) HTN (hypertension): Normotensive -Evaluating for orthostatics -hold lisinopril for now, avoid AV danna blocking agents (3) BPH (benign prostatic hyperplasia): Continue finasteride - hold flomax for now (4) Glaucoma: Will hold timolol component of Cosopt since it may be contributing to symptomatic bradycardia -Continue alphagan, dorzolamide, travoprost -Instructed patient to hold Cosopt until ophthalmology appt with Dr. Morris next week DVT Ppx: SQ heparin Code status: FULL PCP: Serg Dispo: Observation in PCU. Plan to return home once medically stable. Subjective Pt is currently lying in bed, in NAD. Denies any fever, chills, chest pain, shortness of breath, abd. pain, nausea or vomiting. Pt felt dizzy when ambulating, c/w orthostatic hypotension, also recent hx of stent placement to LAD. Cardiology following. Review of Systems Review of Systems: All systems reviewed & are unremarkable except as noted in HPI & below Constitutional: no fever and no chills Respiratory: no cough and no dyspnea Cardiovascular: no chest pain, no palpitations and no edema Gastrointestinal: no abdominal pain, no nausea and no vomiting Physical Exam Physical Exam: General Appearance: Elderly male, WD/WN,lying in bed, in NAD Head: normocephalic, atraumatic Eyes: normal inspection, PERRL, conjunctivae normal, anicteric sclerae ENT: external ear and nose normal, oropharynx normal Neck: trachea midline, no thyromegaly normal visual inspection Respiratory: lungs clear to auscultation, no wheeze, rales, rhonchi. Normal insp/exp effort, no accessory muscle use Cardiovascular: regular rate, rhythm, no murmur, normal peripheral pulses. Vessels: no JVD or carotid bruit Chest: normal inspection of chest, no tenderness to palpation of chest wall Abdomen/GI: normal bowel sounds, soft, nontender, nondistended, no guarding Extremities/Musculoskelatal: no cyanosis or clubbing, extremities motor strength 5/5, moves extremities spontaneously Neurologic: PERRL, EOMI, accommodation nl, no face palsy, no dysarthria, CN's II-XI intact bilaterally and moves all extremities Psychiatric: A+Ox3, euthymic affect Skin: no rashes, normal color, warm/dry Results & Data ([facility]) Vital Signs (Past 12 Hours) Vital Signs Temp Pulse Pulse Resp BP BP Pulse Ox 04/16/19 12:00 36.6 C 50 L 16 121/70 98 04/16/19 08:00 46 L 04/16/19 07:01 36.6 C 48 L 16 105/68 93 04/16/19 03:09 36.7 C 51 L 16 115/65 97 Laboratory Results 04/16/19 04/16/19 04/15/19 Range/Units 05:19 05:19 23:56 WBC 5.08 (4.8-10.8) K/uL RBC 3.72 L (4.7-6.1) M/uL Hgb 12.2 L (14.0-18.0) g/dL Hct 34.7 L (42-52) % MCV 93.3 (80-100) fL MCH 32.8 (25-34) pg MCHC 35.2 (32-36) g/dL RDW Std Deviation 45.7 (36.4-46.3) fL RDW Coeff of Jak 13.4 (11.5-14.5) % Plt Count 158 (130-400) K/uL MPV 9.7 (7.4-10.4) fL Sodium 143 (136-145) mmol/L Potassium 3.6 (3.5-5.1) mmol/L Chloride 110 H (98-107) mmol/L Carbon Dioxide 30 (21-32) mmol/L Anion Gap 3.0 (3-11) BUN 22 H (7-18) mg/dl Creatinine 0.90 (0.6-1.4) mg/dl Est Cr Clr Drug Dosing 72.0 ml/min Est GFR ( Amer) 94.5 Est GFR (Non-Af Amer) 81.5 BUN/Creatinine Ratio 24.0 H (10-20) Glucose 94 (70-99) mg/dl Calcium 8.4 L (8.5-10.1) mg/dl Troponin I 0.144 H* (0-0.045) ng/ml 04/15/19 Range/Units 17:25 WBC (4.8-10.8) K/uL RBC (4.7-6.1) M/uL Hgb (14.0-18.0) g/dL Hct (42-52) % MCV (80-100) fL MCH (25-34) pg MCHC (32-36) g/dL RDW Std Deviation (36.4-46.3) fL RDW Coeff of Jak (11.5-14.5) % Plt Count (130-400) K/uL MPV (7.4-10.4) fL Sodium (136-145) mmol/L Potassium (3.5-5.1) mmol/L Chloride (98-107) mmol/L Carbon Dioxide (21-32) mmol/L Anion Gap (3-11) BUN (7-18) mg/dl Creatinine (0.6-1.4) mg/dl Est Cr Clr Drug Dosing ml/min Est GFR ( Amer) Est GFR (Non-Af Amer) BUN/Creatinine Ratio (10-20) Glucose (70-99) mg/dl Calcium (8.5-10.1) mg/dl Troponin I 0.138 H* (0-0.045) ng/ml Medications Administered Current Inpatient Medications Acetaminophen (Tylenol) 650 mg PO Q4H PRN PRN Reason: Pain or Fever Stop: 05/15/19 14:34 Aspirin (Ecotrin Ectab) 81 mg PO QAM [facility] Stop: 05/15/19 14:44 Last Admin: 04/16/19 08:44 Dose: 81 mg Documented by: Atorvastatin Calcium (Lipitor) 40 mg PO QAM [facility] Stop: 05/16/19 08:59 Last Admin: 04/16/19 09:57 Dose: 40 mg Documented by: Clopidogrel Bisulfate (Plavix) 75 mg PO QAM [facility] Stop: 05/16/19 08:59 Last Admin: 04/16/19 08:44 Dose: 75 mg Documented by: Dorzolamide HCl (Trusopt 2% Oph) 1 drops OPR BID [facility] Stop: 05/15/19 20:59 Last Admin: 04/16/19 08:45 Dose: 1 drops Documented by: Finasteride (Proscar) 5 mg PO HS [facility] Stop: 05/15/19 20:59 Last Admin: 04/15/19 21:00 Dose: 5 mg Documented by: Heparin Sodium (Porcine) (Heparin Sodium (Porcine)) 5,000 units SQ Q12 [facility] Stop: 05/15/19 20:59 Last Admin: 04/16/19 08:45 Dose: Not Given Documented by: Lisinopril (Zestril) 20 mg PO QDL [facility] Stop: 05/15/19 14:44 Last Admin: 04/15/19 16:37 Dose: 20 mg Documented by: Miscellaneous (Order Awaiting Action) 1 ea N/A QS [facility] Stop: 05/15/19 15:59 Last Admin: 04/16/19 08:45 Dose: Not Given Documented by: Ondansetron HCl (Zofran) 4 mg IV Q6H PRN PRN Reason: Nausea Stop: 05/15/19 14:34 Polyethylene Glycol (Miralax Powder Packet) 17 gm PO DAILY PRN PRN Reason: Constipation Stop: 05/15/19 14:34 Tamsulosin HCl (Flomax) 0.4 mg PO Q2D@2100 [facility] Stop: 05/16/19 20:59
[2019-04-16] MEDS ORDERED: TAMSULOSIN HCL 0.4 MG CAP PO SCH (21:00)
[2019-04-16] MEDS: TRAVOPROST Z 0.004% OPH SOLN 2.5 ML BTL OPB SCH (21:32)
[2019-04-16] MEDS: FINASTERIDE 5 MG TAB PO SCH (21:33)
--- NOTE | 2019-04-16 21:57 | Electrocardiogram Report ---
Test Reason : Blood Pressure : / mmHG Vent. Rate : 047 BPM Atrial Rate : 047 BPM P-R Int : 206 ms QRS Dur : 096 ms QT Int : 466 ms P-R-T Axes : 058 069 079 degrees QTc Int : 412 ms Sinus bradycardia Otherwise normal ECG When compared with ECG of 15-APR-2019 12:22, No significant change was found Confirmed by Nolan Vazquez ([id number]) on 04/16/2019 9:57:14 PM Referred By: REFERRED SELF Confirmed By:Nolan Vazquez
[2019-04-17 07:05] LABS: BUN Creatinine Ratio 32.9 (10-20); Calcium 8.5 mg/dl (8.5-10.1); Creatinine Clr Calc Pharmacy 80.1 ml/min; Est GFR (African American) 98.7; Est GFR (Non-African American) 85.1; Potassium 3.8 mmol/L (3.5-5.1)
[2019-04-17] MEDS: ATORVASTATIN 40 MG TAB PO SCH (07:55)
[2019-04-17] MEDS: CLOPIDOGREL BISULFATE 75 MG TAB PO SCH (07:55)
[2019-04-17] MEDS: DORZOLAMIDE HCL 2% OPH SOLN 10 ML BTL OPR SCH (07:55)
[2019-04-17] MEDS: ASPIRIN 81 MG ECTAB PO SCH (07:56)
[2019-04-17] MEDS: HEPARIN SOD 5,000 UNIT/0.5 ML VIAL SQ SCH (07:56)
--- NOTE | 2019-04-17 13:39 | Cardiology Progress Note ---
Date of Service April 17, 2019 Assessment & Plan (1) Orthostatic hypotension: (2) CAD (coronary artery disease): (3) Sinus bradycardia: (4) BPH (benign prostatic hyperplasia): (5) Glaucoma: The patient is ready to be discharged. His orthostatic blood pressure checks are negative. He does have a slow heart rate on the desk monitor but it is a sinus mechanism and the patient provides a history of always having a slow heart rate, so do not believe this is new. 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 After discharge he will continue to hold his lisinopril. I will arrange follow-up as an outpatient through our clinic. Subjective The patient has been ambulating in the hallway without difficulty. He is actually been doing squats to make sure that he does not get dizzy. He has had no chest pain or shortness of breath. Review of Systems Review of Systems: All systems reviewed & are unremarkable except as noted in HPI & below Nothing additional to add. Physical Exam Physical Exam: General: no acute distress and stated age Head: normocephalic, no masses, lesions, tenderness or abnormalities Eyes: conjunctiva are pink and non-injected, sclera clear Neck: supple, no adenopathy, no bruits, normal jugular venous pulse, no hepatojugular reflux Chest: normal shape and normal respiratory effort Lungs: clear to auscultation and percussion Cardiac Exam: - regular rate & rhythm, no murmurs gallops or rubs - normal S1, normal S2 Pulses: 2(+) throughout Abdomen: abdomen soft, non-tender, no abnormal masses and no hepatosplenomegaly Musculoskeletal: no gait disturbance, no joint inflammation, no deforming arthritis Extremities: no edema and no cyanosis Neuro: grossly normal exam Results & Data Vital Signs (Past 12 Hours) Vital Signs Temp Pulse Pulse Resp BP BP Pulse Ox 04/17/19 12:37 37.0 C 59 L 18 126/79 94 04/17/19 08:00 43 L 04/17/19 07:17 36.5 C 54 L 18 122/69 95 04/17/19 03:10 36.4 C L 54 L 16 119/69 95 Laboratory Results Laboratory Results - last 24 hr 04/17/19 06:03 Sodium 142 Potassium 3.8 Chloride 110 H Carbon Dioxide 28 Anion Gap 4.0 BUN 27 H Creatinine 0.81 Est Cr Clr Drug Dosing 80.1 Est GFR ( Amer) 98.7 Est GFR (Non-Af Amer) 85.1 BUN/Creatinine Ratio 32.9 H Glucose 95 Calcium 8.5 Medications Administered Current Inpatient Medications Acetaminophen (Tylenol) 650 mg PO Q4H PRN PRN Reason: Pain or Fever Stop: 05/15/19 14:34 Aspirin (Ecotrin Ectab) 81 mg PO QAM [facility] Stop: 05/15/19 14:44 Last Admin: 04/17/19 07:56 Dose: 81 mg Documented by: Atorvastatin Calcium (Lipitor) [facility] [place] Stop: 05/16/19 08:59 Last Admin: 04/17/19 07:55 Dose: 40 mg Documented by: Clopidogrel Bisulfate (Plavix) 75 mg PO QAM [facility] Stop: 05/16/19 08:59 Last Admin: 04/17/19 07:55 Dose: 75 mg Documented by: Dorzolamide HCl (Trusopt 2% Oph) 1 drops OPR BID [facility] Stop: 05/15/19 20:59 Last Admin: 04/17/19 07:55 Dose: 1 drops Documented by: Finasteride (Proscar) 5 mg PO HS [facility] Stop: 05/15/19 20:59 Last Admin: 04/16/19 21:33 Dose: 5 mg Documented by: Heparin Sodium (Porcine) (Heparin Sodium (Porcine)) 5,000 units SQ Q12 [facility] Stop: 05/15/19 20:59 Last Admin: 04/17/19 07:56 Dose: 5,000 units Documented by: Lisinopril (Zestril) 20 mg PO QDL [facility] Stop: 05/15/19 14:44 Last Admin: 04/15/19 16:37 Dose: 20 mg Documented by: Miscellaneous (Order Awaiting Action) 1 ea N/A QS [facility] Stop: 05/15/19 15:59 Last Admin: 04/17/19 07:13 Dose: Not Given Documented by: Ondansetron HCl (Zofran) 4 mg IV Q6H PRN PRN Reason: Nausea Stop: 05/15/19 14:34 Polyethylene Glycol (Miralax Powder Packet) 17 gm PO DAILY PRN PRN Reason: Constipation Stop: 05/15/19 14:34 Tamsulosin HCl (Flomax) 0.4 mg PO Q2D@2100 [facility] Stop: 05/16/19 20:59 Last Admin: 04/16/19 21:33 Dose: 0.4 mg Documented by:
--- NOTE | 2019-04-17 15:07 | Discharge Summary ---
Date of Service April 17, 2019 Admission HPI Per Admitting Provider This is a 79yo M with a PMH of CAD with recent ABIODUN x 1 to mid LAD on 04/10/19, HTN, BPH and glaucoma who presents after episode of fatigue this morning. Patient had just finished eating breakfast and was walking around kitchen when he experienced sudden onset feeling of fatigue, nausea and diaphoresis. Patient sat down again and rested with symptoms of nausea and diaphoresis resolving within minutes. Continued to feel significantly fatigued, so brought patient to ED for further evaluation. Denies any near syncope, lightheadedness, dizziness, vomiting, chest pain, palpitations or SOB. Patient states that sy mptoms felt the same as what brought him into the hospital at the beginning of the week, prompting exercise stress test showing significant EKG changes that prompted PCI of mid LAD with ABIODUN x 1. From time of discharge until episode this morning, patient has felt back to baseline. Patient is to follow up with Dr. Mcgowan in cardiology clinic in the next few weeks. Has been taking aspirin, plavix and increased dose of atorvastatin as prescribed. Currently feeling fatigued. Denies fever, chills, lightheadedness, visual changes, chest pain, palpitations, SOB, nausea, vomiting, abdominal pain, dy suria, diarrhea or constipation. In ED, patient is afebrile and hemodynamically stable. HR ~45-50. EKG with marked sinus bradycardia at 44 bpm. Initial troponin with elevation of 0.174 with repeat of 0.149 a few hours later. CXR without acute cardiopulmonary findings. Admission Exam Per Admitting Provider General Appearance: WD/WN, vitals as above, pleasant, conversing easily Head: normocephalic, atraumatic Eyes: normal inspection, PERRL, conjunctivae normal, anicteric sclerae ENT: external ear and nose normal, oropharynx normal Neck: trachea midline, no thyromegaly normal visual inspection Respiratory: lungs clear to auscultation, no wheeze, rales, rhonchi. Normal insp/exp effort, no accessory muscle use Cardiovascular: regular rate, rhythm, no murmur, normal peripheral pulses. Vessels: no JVD or carotid bruit Chest: normal inspection of chest, no tenderness to palpation of chest wall Abdomen/GI: normal bowel sounds, soft, nontender, no hepatosplenomegaly Extremities/Musculoskelatal: no cyanosis or clubbing, extremities motor strength 5/5 Neurologic: PERRL, EOMI, accommodation nl, no face palsy, no dysarthria, CN's II-XI intact bilaterally and moves all extremities Psychiatric: A+Ox3, euthymic affect Skin: no rashes, normal color, warm/dry Principal Diagnosis Orthostatic hypotension, CAD, Bradycardia Discharge Exam General Appearance: Elderly male, WD/WN,lying in bed, in NAD Head: normocephalic, atraumatic Eyes: normal inspection, PERRL, conjunctivae normal, anicteric sclerae ENT: external ear and nose normal, oropharynx normal Neck: trachea midline, no thyromegaly normal visual inspection Respiratory: lungs clear to auscultation, no wheeze, rales, rhonchi. Normal insp/exp effort, no accessory muscle use Cardiovascular: regular rate, rhythm, no murmur, normal peripheral pulses. Vessels: no JVD or carotid bruit Chest: normal inspection of chest, no tenderness to palpation of chest wall Abdomen/GI: normal bowel sounds, soft, nontender, nondistended, no guarding Extremities/Musculoskelatal: no cyanosis or clubbing, extremities motor strength 5/5, moves extremities spontaneously Neurologic: PERRL, EOMI, accommodation nl, no face palsy, no dysarthria, CN's II-XI intact bilaterally and moves all extremities Psychiatric: A+Ox3, euthymic affect Skin: no rashes, normal color, warm/dry Discharge Data Allergies Allergy/AdvReac Type Severity Reaction Status Date / Time Penicillins Allergy Mild RASH Unverified 04/15/19 09:31 adhesive Allergy Unknown Verified 04/15/19 09:31 Consultations 04/15/19 14:16 Consult Cardiology Routine Hospital Course (1) CAD (coronary artery disease): This is a 79yo M with a PMH of CAD with recent ABIODUN x 1 to mid LAD on 04/10/19, HTN, BPH and glaucoma who presents after episode of fatigue this morning. Patient had just finished eating breakfast and was walking around kitchen when he experienced sudden onset feeling of fatigue, nausea and diaphoresis. -Episode of nausea,diaphoresis and fatigue morning of admission, in setting of recent ABIODUN to LAD on 04/10/19 -Feels similar to episode occurring on treadmill at the beginning of the week, prompting exercise stress test and cardiac cath with PCI -EKG with marked sinus bradycardia at 44 bpm. Initial troponin with elevation of 0.174 with repeat of 0.149 a few hours later. CXR without acute cardiopulmonary findings -Episodic symptoms possibly 2/2 vasovagal symptoms, but concern for stent occlusion or coronary spasm, although troponin downtrending. Also considering symptomatic bradycardia -Obtain orthostatic vitals, monitor on telemetry, trend troponin, routine cardiology consult - received IVF on admission - held lisinopril, flomax, recheck orthostatic VS, cont. to monitor overnight - rechecked orthostatics - negative, pt ambulating in hallways w/o any symptoms, discussed w/ cardiology, ok to d/c home - hold lisinopril on discharge, also d/c tomolol eye drops as likely contributing to bradycardia - follow up w/ cardiology arranged by their office, pt is aware (2) HTN (hypertension): Normotensive -Evaluating for orthostatics -hold lisinopril for now, avoid AV danna blocking agents - pt will be off lisinopril until seen by cardiology (3) BPH (benign prostatic hyperplasia): Continue finasteride - per urology recommendation, pt should take flomax every other day (4) Glaucoma: - hold timolol component of Cosopt since it may be contributing to symptomatic bradycardia -Continue alphagan, dorzolamide, travoprost -Instructed patient to hold Cosopt until ophthalmology appt with Dr. Morris next week DVT Ppx: SQ heparin Code status: FULL PCP: Serg Dispo: Plan to d/c home today Total Time Total Time Spent Total Time Spent (In Minutes): 40 Total Time Includes: Examination of the Patient, Discharge Planning, Medication Reconciliation and Communication With Other Providers Discharge Plan Discharge Items Patient Disposition: Home - Self-Care Reason For Visit: CHEST DISCOMFORT,SENT PLACEMENT THURSDAY Discharge Diagnosis: Orthostatic hypotension Activity: Resume your previous activity Activity Comment: as tolerated Non-emergency contact: Primary Care Provider, Personalization Specialist, Senior Housekeeper and Urologist Call non-emergency contact if: you have any medication questions and your symptoms worsen Follow-up/Referrals: Helena Ulrich MD [Primary Care Provider] - Diet: Heart Healthy Addtl Attending Provider Instructions: Do not take lisinopril, you will follow-up with your health education assistant, and at the time it will be discussed if/when you should restart lisinopril. Also recommend to discuss with your steamboat pilot, medication/eyedrops - Cosopt, as this may possibly contribute to your symptoms. Pending Studies at Discharge: No Stand-Alone Forms: Call Back Authorization, [facility], Smoking Cessation Medications and DC Order Prescriptions: Continued lisinopril 20 mg tablet 20 mg PO QDL RF: 0 travoprost [Travatan Z] 0.004 % drops 1 drp OPB HS RF: 0 aspirin 81 mg Tablet,Delayed Release (Dr/Ec) 81 mg PO QAM RF: 0 tamsulosin 0.4 mg capsule 0.4 mg PO Q2D@2100 RF: 0 finasteride 5 mg tablet 5 mg PO HS RF: 0 Alphagan P 0.1 % drops 1 drp OPR BID RF: 0 clopidogrel 75 mg Tablet 75 mg PO QAM Qty: 30 RF: 0 atorvastatin 40 mg tablet 40 mg PO QAM RF: 0 Discontinued dorzolamide-timolol (PF) [Cosopt (PF)] 2-0.5 % Dropperette 1 drp OPR BID RF: 0 Discharge Orders: Discharge Order (Routine); Ordered 04/17/19 Ordered By: Ezio Angulo Admission Data Admit Date/Time: 04/15/19 13:36 Attending Provider: Ezio Angulo Admit Provider: Juliana Langston Primary Care Provider: Helena Ulrich Other Providers: Talib Mcgowan Manabendra Other Interventions: Discharge Summary Assessment (RN) Last Done: 04/17/19 15:19 DC Date/Time DO NOT enter until pt leaves facility: 04/17/19 15:52
--- NOTE | 2019-04-17 22:11 | Electrocardiogram Report ---
Test Reason : Blood Pressure : / mmHG Vent. Rate : 047 BPM Atrial Rate : 047 BPM P-R Int : 196 ms QRS Dur : 090 ms QT Int : 464 ms P-R-T Axes : 043 035 048 degrees QTc Int : 410 ms Sinus bradycardia Otherwise normal ECG When compared with ECG of 16-APR-2019 06:58, No significant change was found Confirmed by Nolan Vazquez ([id number]) on 04/17/2019 10:11:40 PM Referred By: REFERRED SELF Confirmed By:Nolan Vazquez
== END 2019-04-17 15:52 | disposition home or self-care (01) ==
LOC: ED 08:27 → 2S 08:27 → SUATTDRO 13:36 → 2S 14:04

== ENCOUNTER 2021-02-28 12:59 | Observation (INO) ==
[2021-02-28 13:45] LABS: Basophils # (auto) 0.01 K/uL (0-0.2); Basophils % (auto) 0.1 %; Eosinophils # (auto) 0.05 K/uL (0-0.5); Eosinophils % (auto) 0.6 %; Hematocrit (blood only) 39.9 % (42-52); Immature Granulocytes # (auto) 0.03 K/uL (0.00-0.02); Immature Granulocytes % (auto) 0.3 %; Lymphocytes # (auto) 1.51 K/uL (1.2-3.4); Lymphocytes % (auto) 17.3 %; Mean Corpuscular Hemoglobin 33.7 pg (25-34); Mean Corpuscular Hgb Conc 35.1 g/dL (32-36); Mean Corpuscular Volume 96.1 fL (80-100); Monocytes % (auto) 5.7 %; Neutrophils # (auto) 6.61 K/uL (1.4-6.5); Platelet Count 175 K/uL (130-400); RDW Coefficient of Variation 13.9 % (11.5-14.5); RDW Standard Deviation 48.6 fL (36.4-46.3); Red Blood Count 4.15 M/uL (4.7-6.1); White Blood Count 8.71 K/uL (4.8-10.8)
[2021-02-28 14:04] LABS: BUN Creatinine Ratio 21.3 (10-20); Blood Urea Nitrogen 18 mg/dl (7-18); Calcium 9.2 mg/dl (8.5-10.1); Carbon Dioxide 30 mmol/L (21-32); Chloride 106 mmol/L (98-107); Creatinine Clr Calc Pharmacy 75.9 ml/min; Est GFR (African American) 96.5 ml/min; Est GFR (Non-African American) 83.3 ml/min; Glucose 160 mg/dl (70-99); Lipase 85 U/L (73-393); Potassium 3.3 mmol/L (3.5-5.1); Sodium 142 mmol/L (136-145)
--- NOTE | 2021-02-28 14:14 | XRay Report ---
XR chest 1V portable HISTORY: 80 years-old Male Chest Pain acute atypical chest pain COMPARISON: Chest radiograph 06/08/2019 TECHNIQUE: Portable AP view of the chest FINDINGS: The cardiomediastinal and hilar silhouettes are within normal limits. Coronary arterial stent. Calcif ied plaque of the thoracic aorta. No pneumothorax, pleural effusion, airspace consolidation or overt pulmonary edema. Degenerative changes of the shoulders and spine. Mild upper to mid thoracic dextrosc oliosis. IMPRESSION: No acute process. ACT 112: Negative or not required by law. The above report was generated using voice recognition software. It may contain grammatical, syntax o r spelling errors. Electronically signed by: Cory Lea M.D. 02/28/2021 2:12 PM
[2021-02-28 15:11] LABS: Troponin I < 0.015 ng/ml (0-0.045)
--- NOTE | 2021-02-28 15:17 | Emergency Department Note ---
History of Present Illness General Chief complaint: Bradycardia Stated complaint: BRADYCARIDA Time Seen by Provider: 02/28/21 13:34 History of Present Illness Provider complaint: Near syncope bradycardia Onset (ago): hour(s) 1 Associated symptoms: + diaphoresis and + weakness; no chest pain, no cough, no fever/chills, no headaches, no nausea/vomiting or no shortness of breath 80-year-old male presents emergency department for symptomatic bradycardia. Patient states he was at [facility] we need to get an MRI when he suddenly became very sweaty and felt like he was going to pass out. EMS was called and found the patient to be bradycardic in the 40s and was given atropine 1 mg which improved his symptoms. Patient reported no chest pain difficulty breathing or headache. Currently reports no chest pain difficult breathing or headache. Per currently he reports no dizziness or feelings of syncope after receiving the atropine. Home Medications Medication Instructions Recorded Confirmed Type aspirin 81 mg tablet,delayed 81 mg PO HS 04/10/19 02/28/21 History release brimonidine 0.1 % eye drops 1 drp OPR BID 04/10/19 02/28/21 History (Alphagan P) finasteride 5 mg tablet 5 mg PO PM 04/10/19 02/28/21 History tamsulosin 0.4 mg capsule 0.4 mg PO Q OTHER DAY 04/10/19 02/28/21 History travoprost 0.004 % eye drops 1 drp OPB HS 04/10/19 02/28/21 History (Travatan Z) atorvastatin 40 mg tablet 40 mg PO HS 04/15/19 02/28/21 History dorzolamide 2 % eye drops (Trusopt) 1 drp OPHTHALMIC (EYE) BID 11/04/19 02/28/21 History melatonin 3 mg capsule 3 mg PO HS 11/04/19 02/28/21 History netarsudil 0.02 %-latanoprost 1 drp OPHTHALMIC (EYE) HS 11/04/19 02/28/21 History 0.005 % eye drops (Rocklatan) multivitamin 1 tab PO QAM 02/28/21 02/28/21 History Allergies Allergy/AdvReac Type Severity Reaction Status Date / Time Penicillins Allergy Mild RASH Verified 02/28/21 14:09 adhesive Allergy Unknown Rash Verified 02/28/21 14:09 wool Allergy Rash Verified 02/28/21 14:09 Past Med/Surg History Medical History BPH (benign prostatic hyperplasia) CAD (coronary artery disease) BAIODUN x 1 to LAD on 04/10/19 Diverticulitis Glaucoma History of bradycardia History of cancer hamstring RADIATION/SURGERY HTN (hypertension) Surgical History Hamstring tear with surgical repair cancer History of cardiac cath mar 2019 [facility] with stent- bare metal stent dr. fishman/jamal History of colonoscopy 5+ years Leg fracture with surgical repair LEFT Family History Mother Breast cancer Father Diabetes Coronary heart disease Social History Smoking Status: Never smoker Second Hand Exposure: No; Hx Alcohol Use: No Hx Substance Use: No Preferred Language: Swiss Communication Ability: Effective Staff Radiation Therapist Required: No Beliefs That Will Affect Care: None Current Living Situation: Spouse Feels Safe at Home: Yes Assistive Devices: Glasses Review of Systems A total of 10 systems reviewed and were otherwise negative Physical Exam Vital Signs Vital Signs - 24 hr 02/28/21 13:15 02/28/21 13:16 02/28/21 13:30 Pulse Rate 58 L 56 L Pulse Rate from SpO2 Sensor 56 L Pulse Rhythm Regular Pulse Strength Normal Respiratory Rate 16 19 Respiratory Effort / Characteristics Non-Labored Respiratory Depth Normal Respiratory Pattern Regular Blood Pressure 141/81 H 132/66 Blood Pressure Mean 101 88 Blood Pressure Position Semi-fowlers Pulse Oximetry 99 98 100 Oxygen Delivery Method Room Air Room Air Sepsis Recent Fever Within 48 Hours No Sepsis New/Unexplained Change in Mental Status No Sepsis Action Taken by Nursing No Action Required 02/28/21 14:00 Pulse Rate 55 L Pulse Rate from SpO2 Sensor 55 L Pulse Rhythm Pulse Strength Respiratory Rate 17 Respiratory Effort / Characteristics Respiratory Depth Respiratory Pattern Blood Pressure 131/66 Blood Pressure Mean 87 Blood Pressure Position Pulse Oximetry 97 Oxygen Delivery Method Sepsis Recent Fever Within 48 Hours Sepsis New/Unexplained Change in Mental Status Sepsis Action Taken by Nursing Physical Exam GENERAL: He is oriented to person, place, and time. He appears well-developed and well-nourished. He does not appear distressed. HENT: Exam performed. - Head: Normocephalic and atraumatic. - Right Ear: External ear normal. No mastoid tenderness. - Left Ear: External ear normal. No mastoid tenderness. - Mouth/Throat: The oropharynx is clear and moist. No trismus in the jaw. No dental abscesses or uvula swelling. No oropharyngeal exudate or tonsillar abscesses. EYES: Conjunctivae and EOM are normal. Pupils are equal, round, and reactive to light. Right eye exhibits no discharge. Left eye exhibits no discharge. No scleral icterus. NECK: Normal range of motion. Neck supple. No JVD present. No spinous process tenderness present. No carotid bruit present. No rigidity. No tracheal deviation and normal range of motion present. No Brudzinski's sign and no Kernig's sign noted. CV: Normal rate, regular rhythm, normal heart sounds and intact distal pulses. There is no peripheral edema. Palpable radial pulses bue. PULM/CHEST: Effort normal and breath sounds normal. No respiratory distress. No stridor. He has no wheezes. He has no rales. - Chest Wall: He exhibits no tenderness. ABD: The abdomen is soft. Bowel sounds are normal. He has no distension. No mass is present. There is no tenderness. There is no rebound, no guarding, no Rebolledo's sign and no tenderness at McBurney's point. Rovsig negative. MUSC/SKEL: Normal range of motion. There is no peripheral edema, tenderness or deformity. LYMPH: No cervical adenopathy. NEURO: He is alert and oriented to person, place, and time. He has normal strength. No cranial nerve deficit or sensory deficit. Coordination and gait normal. GCS eye subscore is 4. GCS verbal subscore is 5. GCS motor subscore is 6. Cerebellar tests wnl. SKIN: Skin is warm and dry. He is not diaphoretic. PSYCH: He has a normal mood and affect. Behavior is normal. Judgment and thought content normal. Course Course 1334: The patient was evaluated in room A11. A complete history and physical exam was performed Cardiac monitoring: An order was placed for continuous cardiac monitoring. The monitor shows a rate of 60 with sinus rhythm 1528: Vital signs stable. Labs and imaging within normal limits. Patient reports no chest pain headache difficulty breathing or feeling cues can pass out or diaphoresis after receiving the atropine. [facility] Discussed with Nissa states admit to Dr. De Anda Medical Decision Making Laboratory Data Result diagrams: 02/28/21 13:30 02/28/21 13:30 Lab Results 02/28/21 02/28/21 Range/Units 13:30 13:30 WBC 8.71 (4.8-10.8) K/uL RBC 4.15 L (4.7-6.1) M/uL Hgb 14.0 (14.0-18.0) g/dL Hct 39.9 L (42-52) % MCV 96.1 (80-100) fL MCH 33.7 (25-34) pg MCHC 35.1 (32-36) g/dL RDW Std Deviation 48.6 H (36.4-46.3) fL RDW Coeff of Jak 13.9 (11.5-14.5) % Plt Count 175 (130-400) K/uL MPV 10.0 (7.4-10.4) fL Immature Gran % (Auto) 0.3 % Neut % (Auto) 76.0 % Lymph % (Auto) 17.3 % [place] % (Auto) 5.7 % Eos % (Auto) 0.6 % Baso % (Auto) 0.1 % Neut # (Auto) 6.61 H (1.4-6.5) K/uL Lymph # (Auto) 1.51 (1.2-3.4) K/uL [place] # (Auto) 0.50 (0.11-0.59) K/uL Eos # (Auto) 0.05 (0-0.5) K/uL Baso # (Auto) 0.01 (0-0.2) K/uL Immature Gran # (Auto) 0.03 H (0.00-0.02) K/uL Sodium 142 (136-145) mmol/L Potassium 3.3 L (3.5-5.1) mmol/L Chloride 106 (98-107) mmol/L Carbon Dioxide 30 (21-32) mmol/L Anion Gap 6.0 (3-11) BUN 18 (7-18) mg/dl Creatinine 0.84 (0.6-1.4) mg/dl Est Cr Clr Drug Dosing 75.9 ml/min Est GFR ( Amer) 96.5 ml/min Est GFR (Non-Af Amer) 83.3 ml/min BUN/Creatinine Ratio 21.3 H (10-20) Glucose 160 H (70-99) mg/dl Calcium 9.2 (8.5-10.1) mg/dl Troponin I < 0.015 (0-0.045) ng/ml Lipase 85 (73-393) U/L Imaging Data Radiologist's Impression: Chest X-Ray 02/28/21 13:38 XR chest 1V portable HISTORY: 80 years-old Male Chest Pain acute atypical chest pain COMPARISON: Chest radiograph 06/08/2019 TECHNIQUE: Portable AP view of the chest FINDINGS: The cardiomediastinal and hilar silhouettes are within normal limits. Coronary arterial stent. Calcified plaque of the thoracic aorta. No pneumothorax, pleural effusion, airspace consolidation or overt pulmonary edema. Degenerative changes of the shoulders and spine. Mild upper to mid thoracic dextroscoliosis. IMPRESSION: No acute process. ACT 112: Negative or not required by law. The above report was generated using voice recognition software. It may contain grammatical, syntax or spelling errors. Electronically signed by: Cory Lea M.D. 02/28/2021 2:12 PM ECG Data Indication: + weakness Rate (beats per minute): 61 Rhythm: + normal sinus ECG Intervals/blocks: + Normal QRS, + Normal ND and + Normal QT-c ECG ST segments: + Normal ST segments MDM Narrative Vital signs stable. Labs and imaging within normal limits. Patient reports no chest pain headache difficulty breathing or feeling cues can pass out or diaphoresis after receiving the atropine. Patient will be admitted to the [facility] hospitalist team for further work-up. Discussed with Nissa states admit to Dr. De Anda Impression & Plan Symptomatic bradycardia Discharge Plan Visit Data Chief Complaint: Bradycardia Stated Complaint: BRADYCARIDA Discharge Problem: Symptomatic bradycardia Patient Disposition: Being Evaluated by Hospitalist Forms Stand Alone Forms: [facility] Prescriptions Prescriptions: No Action dorzolamide [Trusopt] 2 % Drops 1 drp OPHTHALMIC (EYE) BID RF: 0 Rocklatan 0.02-0.005 % Drops 1 drp OPHTHALMIC (EYE) HS RF: 0 melatonin 3 mg Capsule 3 mg PO HS RF: 0 travoprost [Travatan Z] 0.004 % drops 1 drp OPB HS RF: 0 aspirin 81 mg Tablet,Delayed Release (Dr/Ec) 81 mg PO HS RF: 0 tamsulosin 0.4 mg capsule 0.4 mg PO Q OTHER DAY RF: 0 finasteride 5 mg tablet 5 mg PO PM RF: 0 Alphagan P 0.1 % drops 1 drp OPR BID RF: 0 atorvastatin 40 mg tablet 40 mg PO HS RF: 0 multivitamin Tablet 1 tab PO QAM RF: 0 Referrals Referrals: Helena Ulrich MD [Primary Care Provider] -
--- NOTE | 2021-02-28 15:33 | History & Physical Report ---
Date of Service February 28, 2021 Assessment & Plan (1) Sinus bradycardia: Plan: - Admit to tele - Trend cardiac biomarkers, initial set was negative - EKG reviewed as above - previously in Mar 2019 was also bradycardic in the 50s. - Will make NPO after midnight in the even that the patient would need a pacemaker, however appears this is more likely a vasovagal events with athletic heart due to his physical activity level. - Check 2 D echo - If negative enzymes can consider a stress test tomorrow morning. - PT/OT consulted - Pt is not on any beta blockade - Consult Cardiology (2) Orthostatic hypotension: Plan: -Possibly due to slight hypovolemia, allow oral intake - No additional fluids at this time, BP is stable at 131/66 (3) CAD (coronary artery disease): Plan: -History of stent to the LAD 1 year ago. -Follows with Dr. Mcgowan as an outpatient -Consult cardiology, Dr. Pierce -Continue ASA 81 mg daily, atorvastatin 40 mg at bedtime (4) Hypokalemia: Plan: -Will replace potassium, level 3.3 upon admission, with 20 M EQ p.o. now, trend with a.m. labs (5) HTN (hypertension): Plan: -BP stable for now (6) BPH (benign prostatic hyperplasia): Plan: - Continue proscar and flomax DVT PPx: - teds, scds CODE: Full code Dispo: From home, likely to remain in the hospital x 1 day History of Present Illness Chief Complaint: Bradycardia Primary Care Provider: Helena Ulrich MD This is a 80 yo M with PMHx of HTN, CAD s/p stent placement, IBS, BPH with LUTS, amenia of chronic disease who presents today from outpatient clinic at [facility] where a rapid response was called due to the patient syncopal episode. Pt was over at [facility] for a routine MRI for the Abdomen to evaluate cysts on the pancreas, liver and spleen routinely per his PCP. He did not eat or drink anything early this morning as he was instructed not to. 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 Within 5 minutes of having his IV placed he felt lightheaded, as if he was going to pass out, and was diaphoretic. He sat down and his symptoms somewhat improved. He denies any chest pain or shortness of breath at that time or currently while here in the ER. He is very athletic, history of running/jogging. Patient runs 2 miles daily in 30 minutes, participates in a warm up x20 minutes prior. Patient notes that his pulse has been in the 50s to 60s for his entire life. His EKG was reviewed from spring 2019 compared to today and is nearly unchanged, but was bradycardic at that point time with heart rate in the 50s. His pulse was consistently in the 40s at [facility], he was given some juice and crackers however glucose stick was 132. His pulse was back into the 50s after the event. After resting for 30 minutes he continued to have a pulse around 40 with a low of 38 per outpatient [facility] record review. He is not on any beta blockade. Allergies Allergy/AdvReac Type Severity Reaction Status Date / Time Penicillins Allergy Mild RASH Verified 02/28/21 14:09 adhesive Allergy Unknown Rash Verified 02/28/21 14:09 wool Allergy Rash Verified 02/28/21 14:09 Home Medications Medication Instructions Recorded Confirmed Type aspirin 81 mg tablet,delayed 81 mg PO HS 04/10/19 02/28/21 History release brimonidine 0.1 % eye drops 1 drp OPR BID 04/10/19 02/28/21 History (Alphagan P) finasteride 5 mg tablet 5 mg PO PM 04/10/19 02/28/21 History tamsulosin 0.4 mg capsule 0.4 mg PO Q OTHER DAY 04/10/19 02/28/21 History travoprost 0.004 % eye drops 1 drp OPB HS 04/10/19 02/28/21 History (Travatan Z) atorvastatin 40 mg tablet 40 mg PO HS 04/15/19 02/28/21 History dorzolamide 2 % eye drops (Trusopt) 1 drp OPHTHALMIC (EYE) BID 11/04/19 02/28/21 History netarsudil 0.02 %-latanoprost 1 drp OPHTHALMIC (EYE) HS 11/04/19 02/28/21 History 0.005 % eye drops (Rocklatan) melatonin 5 mg PO HS PRN 02/28/21 02/28/21 History multivitamin 1 tab PO QAM 02/28/21 02/28/21 History tadalafil 5 mg tablet 5 mg PO DAILY PRN 02/28/21 02/28/21 History Past Med/Surg History Medical History (Updated 02/28/21 @ 16:18 by Marycruz Ball PA-C) BPH (benign prostatic hyperplasia) CAD (coronary artery disease) ABIODUN x 1 to LAD on 04/10/19 Diverticulitis Glaucoma History of bradycardia History of cancer hamstring RADIATION/SURGERY HTN (hypertension) Sarcoma of right thigh Surgical History Hamstring tear with surgical repair cancer History of cardiac cath mar 2019 [facility] with stent- bare metal stent dr. fishman/jamal History of colonoscopy 5+ years Leg fracture with surgical repair LEFT Family History Mother Breast cancer Father Diabetes Coronary heart disease Social History Smoking Status: Never smoker Second Hand Exposure: No; Hx Alcohol Use: No Hx Substance Use: No Preferred Language: Sudanese Communication Ability: Effective Vessel Slag Worker Required: No Beliefs That Will Affect Care: None Current Living Situation: Spouse Feels Safe at Home: Yes Assistive Devices: Glasses Review of Systems Review of Systems: Constitutional: No fever, sweats or chills Eyes: No diplopia, no worsening or blurred vision ENT: normal hearing, no trouble swallowing Respiratory: No cough, sputum, dyspnea at rest or on exertion Cardiovascular: No chest pain, tightness or palpitations Abdomen: No pain, nausea, vomiting, diarrhea or constipation Musculoskeletal: No joint pain, calf pain, swelling Neurologic: No weakness, numbness/tingling, or balance problems Psychiatric: No anxiety or depression Skin: No rash or itch Physical Exam Physical Exam: General: awake, alert, no apparent distress, appears much younger than stated age, physically fit Head: Normocephalic, atraumatic ENT: PERRL, EOMI, no pharyngeal exudate, mucous membranes moist Chest: Clear to auscultation, on room air, no adventitious breath sounds Cardiac: Regular rhythm, bradycardic with heart rate at 51 while at bedside, no murmur, no JVD, normal peripheral pulses, good capillary refill Abdominal: NABS x 4 quadrants, soft, nondistended, nontender to palpation, no rebound or guarding Extremities: Normal inspection, no peripheral edema or erythema, calfs nontender to palpation Psych: Normal mood and affect Neuro: AAO x 3, strength intact bilaterally and rated 5/5, no motor deficits, speech is clear, no peripheral sensory deficits Results & Data Results & Data ([facility]) Vital Signs (Past 12 Hours) Vital Signs Pulse Resp BP Pulse Ox 02/28/21 14:00 55 L 17 131/66 97 02/28/21 13:30 56 L 19 132/66 100 02/28/21 13:16 58 L 16 141/81 H 98 02/28/21 13:15 99 Laboratory Results 02/28/21 02/28/21 13:30 13:30 WBC 8.71 RBC 4.15 L Hgb 14.0 Hct 39.9 L MCV 96.1 MCH 33.7 MCHC 35.1 RDW Std Deviation 48.6 H RDW Coeff of Jak 13.9 Plt Count 175 MPV 10.0 Immature Gran % (Auto) 0.3 Neut % (Auto) 76.0 Lymph % (Auto) 17.3 Morrison % (Auto) 5.7 Eos % (Auto) 0.6 Baso % (Auto) 0.1 Neut # (Auto) 6.61 H Lymph # (Auto) 1.51 Morrison # (Auto) 0.50 Eos # (Auto) 0.05 Baso # (Auto) 0.01 Immature Gran # (Auto) 0.03 H Sodium 142 Potassium 3.3 L Chloride 106 Carbon Dioxide 30 Anion Gap 6.0 BUN 18 Creatinine 0.84 Est Cr Clr Drug Dosing 75.9 Est GFR ( Amer) 96.5 Est GFR (Non-Af Amer) 83.3 BUN/Creatinine Ratio 21.3 H Glucose 160 H Calcium 9.2 Troponin I < 0.015 Lipase 85 Diagnostic Findings Chest X-Ray 02/28/21 13:38 XR chest 1V portable HISTORY: 80 years-old Male Chest Pain acute atypical chest pain COMPARISON: Chest radiograph 06/08/2019 TECHNIQUE: Portable AP view of the chest FINDINGS: The cardiomediastinal and hilar silhouettes are within normal limits. Coronary arterial stent. Calcified plaque of the thoracic aorta. No pneumothorax, pleural effusion, airspace consolidation or overt pulmonary edema. Degenerative changes of the shoulders and spine. Mild upper to mid thoracic dextroscoliosis. IMPRESSION: No acute process. ACT 112: Negative or not required by law. The above report was generated using voice recognition software. It may contain grammatical, syntax or spelling errors. Electronically signed by: Cory Lea M.D. 02/28/2021 2:12 PM ECG Additional Comments: [facility]-EDSTAT ROUTINE RETRIEVAL Normal sinus rhythm Possible Lateral infarct , age undetermined Abnormal ECG When compared with ECG of 08-JUN-2019 19:10, Premature ventricular complexes are no longer Present 25mm/s 10mm/mV 150Hz 9.0.9 12SL 241 NIKKI: 11 Referred by: Delmar Ott Unconfirmed Vent. rate 61 BPM NM interval 188 ms QRS duration 100 ms QT/QTc 426/428 ms Code Status & VTE Plan Code Status Full code-discussed with the patient at bedside Supervising Physician Co-Signing Physician Notes I saw this patient with the physician mailing machine assistant, I participated in the history, physical, review of systems, and physical exam. I reviewed the medications with the patient and the physician mailing machine assistant and helped reconcile the medications. I helped take a detailed family and social history as well. I formulated the assessment and plan personally with the physician mailing machine assistant and went over it with the patient. Physical Exam Gen-AAO x 3, NAD, Afebrile, Fit, Appears less than stated age, pleasant Head-NCAT, EOMI, PERRLA, Anicteric Sclera, No Posterior Pharyngeal Erythema Neck-Supple, No JVD, No Thyromegaly, No Masses, No LAD, No Bruits Lungs-Clear to Auscultation Bilaterally, No Rales, No Rhonchi, No Wheezing, No Crepitus Chest-Regular, Bradycardic, S4, +S1, +S2, No S3, No Murmurs, No Rubs, No Gallops, No Ectopy Abdomen-Soft, Bowel Sounds Present, Non Tender, Non Distended, No Hepatomegaly, No Splenomegaly, No Palpable Masses, No Rebound, No Rigidity, No Guarding Musculoskeletal-Full Range of Motion Bilaterally, No CVAT Extremities-No Cyanosis, No Clubbing, No Edema Nuero-Cranial Nerves II-XII grossly intact, Motor WNL, DTRs WNL, Strength WNL, Non Focal Psych-Normal Mood
[2021-02-28] MEDS ORDERED: POTASSIUM CHLORIDE CRTAB 20 MEQ TABCR PO STA (16:15)
[2021-02-28] MEDS ORDERED: ACETAMINOPHEN 325 MG TAB PO PRN (19:12)
[2021-02-28] MEDS ORDERED: ONDANSETRON INJ 2 MG/ML 2 ML VIAL IV PRN (19:12)
[2021-02-28] MEDS: HEPARIN SOD 5,000 UNIT/0.5 ML VIAL SQ SCH (20:58)
[2021-02-28] MEDS ORDERED: MELATONIN 3 MG TAB PO PRN (21:12)
[2021-02-28] MEDS ORDERED: TRAVOPROST Z 0.004% OPH SOLN 2.5 ML BTL OPL SCH (21:30)
[2021-02-28] MEDS: DORZOLAMIDE HCL 2% OPH SOLN 10 ML BTL OP SCH (22:13)
[2021-02-28] MEDS: ALPHAGAN~ORDER AWAITING ACTION SCH (22:44)
[2021-03-01 05:11] LABS: Hematocrit (blood only) 37.3 % (42-52); Hemoglobin 13.1 g/dL (14.0-18.0); Mean Corpuscular Hemoglobin 33.5 pg (25-34); Mean Corpuscular Hgb Conc 35.1 g/dL (32-36); Mean Corpuscular Volume 95.4 fL (80-100); Mean Platelet Volume 9.6 fL (7.4-10.4); Platelet Count 161 K/uL (130-400); RDW Coefficient of Variation 13.9 % (11.5-14.5); RDW Standard Deviation 48.4 fL (36.4-46.3); Red Blood Count 3.91 M/uL (4.7-6.1); White Blood Count 7.03 K/uL (4.8-10.8)
[2021-03-01 05:42] LABS: Alanine Aminotransferase 42 (12-78); Albumin Level 3.4 gm/dl (3.4-5.0); Aspartate Aminotransferase 16 U/L (15-37); BUN Creatinine Ratio 23.7 (10-20); Blood Urea Nitrogen 20 mg/dl (7-18); Calcium 8.8 mg/dl (8.5-10.1); Carbon Dioxide 29 mmol/L (21-32); Chloride 110 mmol/L (98-107); Creatinine Clr Calc Pharmacy 75.9 ml/min; Est GFR (African American) 96.5 ml/min; Est GFR (Non-African American) 83.3 ml/min; Glucose 88 mg/dl (70-99); Potassium 3.6 mmol/L (3.5-5.1); Sodium 143 mmol/L (136-145)
[2021-03-01 05:48] LABS: Albumin Globulin Ratio 1.3 (0.9-2); Alkaline Phosphatase 66 U/L (45-117); Bilirubin,Total 1.8 mg/dl (0.2-1); Chol HDL Ratio 2; Cholesterol 93 mg/dl (0-200); Globulin 2.7 gm/dl (2.5-4.0); HDL Cholesterol 48 mg/dl; LDL Cholesterol Calculated 29 mg/dl; Total Protein 6.1 gm/dl (6.4-8.2); Triglycerides 78 mg/dl (0-150); Troponin I < 0.015 ng/ml (0-0.045); VLDL Cholesterol 16 mg/dl
[2021-03-01 07:36] LABS: Estimated Average Glucose 114 mg/dl; Hemoglobin A1C 5.6 % (4.5-5.6)
--- NOTE | 2021-03-01 08:39 | Cardiology Consultation ---
Date of Consultation March 01, 2021 Assessment & Plan (1) Vasovagal near-syncope: (2) Sinus bradycardia: (3) Hypokalemia: (4) CAD (coronary artery disease): Patient with episode of likely vasovagal near syncope yesterday after getting an IV for an MRI. He had no intake of oral hydration or food in the 14 hours leading up to procedure. He was found to have sinus bradycardia with HR's in the 40's and sent to ER. He has a long standing history of asymptomatic sinus bradycardia dating back many years. Prior to yesterday's episode, he denies recent symptoms of lightheadedness or dizziness. Symptoms improved with 2 bottles of water and a snack. Since admission, no recurrent symptoms despite HR's ranging 45-55 bpm. At this time, no indication or need for pacemaker implantation at this time. Recommend outpatient ZIO monitor. Avoid AV danna blocking agents. Case discussed with Dr. Pierce. No further cardiac testing warranted at this time. Stable for discharge. Supervising Physician Co-Signing Physician Notes 80-year-old patient admitted with acute lightheadedness, bradycardia, and hypotension. Feeling better overnight with IV hydration. Telemetry was bradycardia without significant pauses or heart block. Currently asymptomatic. Carries longstanding history of sinus bradycardia. PE: VSS. General: NAD, AAOx3. Heart: Regular, bradycardic, no murmur. Lungs: Clear bilateral, no rales, rhonchi, wheeze. Extremities: No edema. A/P: Agree with above PA-C history, physical exam, assessment and plan. Encourage patient to maintain adequate hydration. He is bradycardic on telemetry, however, this does not appear to be a significant change from baseline. Episode of lightheadedness and bradycardia likely vagal mediated in the setting of needlestick and 14-hour fasting. Discussed potential need for pacemaker implantation during his lifetime, however, no overt indication currently. He will continue to make deliberate positional changes to avoid lightheadedness. 14-day ZIO monitor will be performed in the outpatient setting. Thank you for allow me to participate in the care of your patient. History of Present Illness Reason for Consultation: Pre-syncope; Bradycardia; Requesting Physician: Dr. Munoz Attending Physician: Dr. Pierce History of Present Illness Patient is a 80 year old male who is known to [facility], following with Dr. Mcgowan for history of CAD s/p ABIODUN to the mid LAD in Mar 2019, hypertension, dyslipidemia, and underlying sinus bradycardia. He previously underwent outpatient monitor in May 2019 which revealed sinus bradycardia without pauses. Average HR 53 bpm. He has not been prescribed AV danna blocking agents for this reason. Patient reports a long history of bradycardia, dating back to when he was young. Yesterday, patient was at [facility] to have an MRI of the pancreas to follow previously known cysts with in liver and pancreas. He was NPO since 9:00 PM wihtout water or food. Imaging study was around 11:00. He had IV placed, and then became diaphoretic and lightheaded. Rapid Response was called and EKG was done demonstrating sinus bradycardia with a HR of 44 bpm. Blood glucose was 132. He was provided with juice crackers and symptoms improved. However due to ongoing sinus bradycardia, he was sent to ER for evaluation. Apparently BP was acceptable during this episode. Patient reports long standing history of sinus bradycardia without symptoms. He had a syncopal spell 50 years ago when in graduate school after standing up too quickly. Most recently he denies recent lightheadedness, dizziness or near syncope. He believes he was dehydrated yesterday and went too long without food/hydration contributing to his symptoms. He reports HR's in the 40's at home frequently and has no symptoms. He denies recent changes to his functional capacity. He remains active on a regular basis, exercising regularly without symptoms. No anginal complaints. No changes to his medications. EKG on arrival to ER demonstrated NSR without acute changes. Cardiac enzymes are unremarkable since admission. His potassium was slightly low and supplemented. Improved this morning. Currently he is resting in bed comfortably. Telemetry reveals Sinus bradycardia ranging 45-55 bpm. No pauses or high degree AV block. He has been in and out of bed ambulating to the restroom and denies acute symptoms of dizziness or lightheadedness, near syncope/syncope. Voices no complaints at this time. He thinks yesterdays occurrences were situational and likely not related to his HR. He does not want a pacemaker unless absolutely necessary. Allergies Allergy/AdvReac Type Severity Reaction Status Date / Time Penicillins Allergy Mild RASH Verified 02/28/21 14:09 adhesive Allergy Unknown Rash Verified 02/28/21 14:09 wool Allergy Rash Verified 02/28/21 14:09 Home Medications Medication Instructions Recorded Confirmed Type aspirin 81 mg tablet,delayed 81 mg PO HS 04/10/19 02/28/21 History release brimonidine 0.1 % eye drops 1 drp OPR BID 04/10/19 02/28/21 History (Alphagan P) finasteride 5 mg tablet 5 mg PO PM 04/10/19 02/28/21 History tamsulosin 0.4 mg capsule 0.4 mg PO Q OTHER DAY 04/10/19 02/28/21 History travoprost 0.004 % eye drops 1 drp OPB HS 04/10/19 02/28/21 History (Travatan Z) atorvastatin 40 mg tablet 40 mg PO HS 04/15/19 02/28/21 History dorzolamide 2 % eye drops (Trusopt) 1 drp OPHTHALMIC (EYE) BID 11/04/19 02/28/21 History netarsudil 0.02 %-latanoprost 1 drp OPHTHALMIC (EYE) HS 11/04/19 02/28/21 History 0.005 % eye drops (Rocklatan) melatonin 5 mg PO HS PRN 02/28/21 02/28/21 History multivitamin 1 tab PO QAM 02/28/21 02/28/21 History tadalafil 5 mg tablet 5 mg PO DAILY PRN 02/28/21 02/28/21 History Patient History Medical History (Updated 03/01/21 @ 10:22 by Nickie Dumont PA-C) BPH (benign prostatic hyperplasia) CAD (coronary artery disease) ABIODUN x 1 to LAD on 04/10/19 Diverticulitis Glaucoma History of bradycardia History of cancer hamstring RADIATION/SURGERY HTN (hypertension) Sarcoma of right thigh Surgical History Hamstring tear with surgical repair cancer History of cardiac cath mar 2019 [facility] with stent- bare metal stent dr. fishman/jamal History of colonoscopy 5+ years Leg fracture with surgical repair LEFT Family History Mother Breast cancer Father Diabetes Coronary heart disease Social History Smoking Status: Never smoker Second Hand Exposure: No; Hx Alcohol Use: No Hx Substance Use: No Preferred Language: Maltese Communication Ability: Effective Mixing Engineer Required: No Beliefs That Will Affect Care: None Current Living Situation: Spouse Other Information That Helps Us Care for You: No Feels Safe at Home: Yes Safety Concerns: Feels Safe At This Time Assistive Devices: Glasses Review of Systems Review of Systems: All systems reviewed & are unremarkable except as noted in HPI & below Physical Exam Constitutional: WD/WN, vitals as above well developed, well nourished and healthy appearing; no acute distress Eyes: PERRL, conjunctivae normal, anicteric sclerae Neck: trachea midline, no thyromegaly Respiratory: normal respiratory effort, lungs clear to auscultation Cardiovascular: RRR, no murmur, no edema Gastrointestinal (Abdomen): normal bowel sounds, soft, nontender, no hepatosplenomegaly Skin: no rashes, warm and dry Neurologic: PERRL, EOMI, accommodation nl, no face palsy, no dysarthria Psychiatric: A+Ox3, euthymic affect Results & Data ([facility]) Vital Signs (Past 12 Hours) Vital Signs Temp Pulse Resp BP Pulse Ox 03/01/21 07:04 36.6 C 48 L 16 146/70 H 96 03/01/21 04:34 36.8 C 50 L 18 115/58 L 95 02/28/21 23:11 36.9 C 45 L 18 115/58 L 97 Laboratory Results 03/01/21 03/01/21 03/01/21 Range/Units 04:46 04:46 04:46 WBC 7.03 (4.8-10.8) K/uL RBC 3.91 L (4.7-6.1) M/uL Hgb 13.1 L (14.0-18.0) g/dL Hct 37.3 L (42-52) % MCV 95.4 (80-100) fL MCH 33.5 (25-34) pg MCHC 35.1 (32-36) g/dL RDW Std Deviation 48.4 H (36.4-46.3) fL RDW Coeff of Jak 13.9 (11.5-14.5) % Plt Count 161 (130-400) K/uL MPV 9.6 (7.4-10.4) fL Immature Gran % (Auto) % Neut % (Auto) % Lymph % (Auto) % [place] % (Auto) % Eos % (Auto) % Baso % (Auto) % Neut # (Auto) (1.4-6.5) K/uL Lymph # (Auto) (1.2-3.4) K/uL Lancaster # (Auto) (0.11-0.59) K/uL Eos # (Auto) (0-0.5) K/uL Baso # (Auto) (0-0.2) K/uL Immature Gran # (Auto) (0.00-0.02) K/uL Sodium 143 (136-145) mmol/L Potassium 3.6 (3.5-5.1) mmol/L Chloride 110 H (98-107) mmol/L Carbon Dioxide 29 (21-32) mmol/L Anion Gap 4.0 (3-11) BUN 20 H (7-18) mg/dl Creatinine 0.84 (0.6-1.4) mg/dl Est Cr Clr Drug Dosing 75.9 ml/min Est GFR ( Amer) 96.5 ml/min Est GFR (Non-Af Amer) 83.3 ml/min BUN/Creatinine Ratio 23.7 H (10-20) Glucose 88 (70-99) mg/dl Estimat Average Glucose 114 mg/dl Hemoglobin A1c 5.6 (4.5-5.6) % Calcium 8.8 (8.5-10.1) mg/dl Total Bilirubin 1.8 H (0.2-1) mg/dl AST 16 (15-37) U/L ALT 42 (12-78) Alkaline Phosphatase 66 (45-117) U/L Troponin I < 0.015 (0-0.045) ng/ml Total Protein 6.1 L (6.4-8.2) gm/dl Albumin 3.4 (3.4-5.0) gm/dl Globulin 2.7 (2.5-4.0) gm/dl Albumin/Globulin Ratio 1.3 (0.9-2) Triglycerides 78 (0-150) mg/dl Cholesterol 93 (0-200) mg/dl LDL Cholesterol, Calc 29 mg/dl VLDL Cholesterol, Calc 16 mg/dl HDL Cholesterol 48 mg/dl Cholesterol/HDL Ratio 2 Lipase (73-393) U/L SARS-CoV-2, RNA, NAAT (NEGATIVE) 02/28/21 02/28/21 02/28/21 Range/Units 20:16 15:37 13:30 WBC (4.8-10.8) K/uL RBC (4.7-6.1) M/uL Hgb (14.0-18.0) g/dL Hct (42-52) % MCV (80-100) fL MCH (25-34) pg MCHC (32-36) g/dL RDW Std Deviation (36.4-46.3) fL RDW Coeff of Jak (11.5-14.5) % Plt Count (130-400) K/uL MPV (7.4-10.4) fL Immature Gran % (Auto) % Neut % (Auto) % Lymph % (Auto) % [place] % (Auto) % Eos % (Auto) % Baso % (Auto) % Neut # (Auto) (1.4-6.5) K/uL Lymph # (Auto) (1.2-3.4) K/uL Lancaster # (Auto) (0.11-0.59) K/uL Eos # (Auto) (0-0.5) K/uL Baso # (Auto) (0-0.2) K/uL Immature Gran # (Auto) (0.00-0.02) K/uL Sodium 142 (136-145) mmol/L Potassium 3.3 L (3.5-5.1) mmol/L Chloride 106 (98-107) mmol/L Carbon Dioxide 30 (21-32) mmol/L Anion Gap 6.0 (3-11) BUN 18 (7-18) mg/dl Creatinine 0.84 (0.6-1.4) mg/dl Est Cr Clr Drug Dosing 75.9 ml/min Est GFR ( Amer) 96.5 ml/min Est GFR (Non-Af Amer) 83.3 ml/min BUN/Creatinine Ratio 21.3 H (10-20) Glucose 160 H (70-99) mg/dl Estimat Average Glucose mg/dl Hemoglobin A1c (4.5-5.6) % Calcium 9.2 (8.5-10.1) mg/dl Total Bilirubin (0.2-1) mg/dl AST (15-37) U/L ALT (12-78) Alkaline Phosphatase (45-117) U/L Troponin I < 0.015 < 0.015 (0-0.045) ng/ml Total Protein (6.4-8.2) gm/dl Albumin (3.4-5.0) gm/dl Globulin (2.5-4.0) gm/dl Albumin/Globulin Ratio (0.9-2) Triglycerides (0-150) mg/dl Cholesterol (0-200) mg/dl LDL Cholesterol, Calc mg/dl VLDL Cholesterol, Calc mg/dl HDL Cholesterol mg/dl Cholesterol/HDL Ratio Lipase 85 (73-393) U/L SARS-CoV-2, RNA, NAAT NEGATIVE (NEGATIVE) 02/28/21 Range/Units 13:30 WBC 8.71 (4.8-10.8) K/uL RBC 4.15 L (4.7-6.1) M/uL Hgb 14.0 (14.0-18.0) g/dL Hct 39.9 L (42-52) % MCV 96.1 (80-100) fL MCH 33.7 (25-34) pg MCHC 35.1 (32-36) g/dL RDW Std Deviation 48.6 H (36.4-46.3) fL RDW Coeff of Jak 13.9 (11.5-14.5) % Plt Count 175 (130-400) K/uL MPV 10.0 (7.4-10.4) fL Immature Gran % (Auto) 0.3 % Neut % (Auto) 76.0 % Lymph % (Auto) 17.3 % Lancaster % (Auto) 5.7 % Eos % (Auto) 0.6 % Baso % (Auto) 0.1 % Neut # (Auto) 6.61 H (1.4-6.5) K/uL Lymph # (Auto) 1.51 (1.2-3.4) K/uL Lancaster # (Auto) 0.50 (0.11-0.59) K/uL Eos # (Auto) 0.05 (0-0.5) K/uL Baso # (Auto) 0.01 (0-0.2) K/uL Immature Gran # (Auto) 0.03 H (0.00-0.02) K/uL Sodium (136-145) mmol/L Potassium (3.5-5.1) mmol/L Chloride (98-107) mmol/L Carbon Dioxide (21-32) mmol/L Anion Gap (3-11) BUN (7-18) mg/dl Creatinine (0.6-1.4) mg/dl Est Cr Clr Drug Dosing ml/min Est GFR ( Amer) ml/min Est GFR (Non-Af Amer) ml/min BUN/Creatinine Ratio (10-20) Glucose (70-99) mg/dl Estimat Average Glucose mg/dl Hemoglobin A1c (4.5-5.6) % Calcium (8.5-10.1) mg/dl Total Bilirubin (0.2-1) mg/dl AST (15-37) U/L ALT (12-78) Alkaline Phosphatase (45-117) U/L Troponin I (0-0.045) ng/ml Total Protein (6.4-8.2) gm/dl Albumin (3.4-5.0) gm/dl Globulin (2.5-4.0) gm/dl Albumin/Globulin Ratio (0.9-2) Triglycerides (0-150) mg/dl Cholesterol (0-200) mg/dl LDL Cholesterol, Calc mg/dl VLDL Cholesterol, Calc mg/dl HDL Cholesterol mg/dl Cholesterol/HDL Ratio Lipase (73-393) U/L SARS-CoV-2, RNA, NAAT (NEGATIVE) Diagnostic Findings Telemetry reviewed - Sinus bradycardia ranging 45-55. No pauses or high degree AV block. EKG reviewed form admission - NSR at 61 bmp, no acute changes Chest xray: IMPRESSION: No acute process. Medications Administered Current Inpatient Medications Acetaminophen (Acetaminophen 325 Mg Tab) 650 mg PO Q4H PRN PRN Reason: Moderate Pain Stop: 03/30/21 19:11 Aspirin (Aspirin 81 Mg Ectab) 81 mg PO HS SUNITA Stop: 03/31/21 20:59 Atorvastatin Calcium (Atorvastatin 40 Mg Tab) 40 mg PO HS SUNITA Stop: 03/31/21 20:59 Dorzolamide HCl (Dorzolamide Hcl 2% Oph Soln 10 Ml Btl) 1 drops OP BID SUNITA Stop: 03/30/21 21:29 Last Admin: 03/01/21 09:54 Dose: 1 drops Documented by: Finasteride (Finasteride 5 Mg Tab) 5 mg PO PM [facility] Stop: 03/31/21 20:59 Heparin Sodium (Porcine) (Heparin Sod 5,000 Unit/0.5 Ml Vial) 5,000 units SQ Q12 [facility] Stop: 03/30/21 20:59 Last Admin: 03/01/21 09:56 Dose: Not Given Documented by: Melatonin (Melatonin 3 Mg Tab) 3 mg PO HSZ PRN PRN Reason: Sleep Stop: 03/30/21 21:11 Miscellaneous (Rocklatan~Order Awaiting Action) 1 ea N/A QS [facility] Stop: 03/30/21 22:29 Last Admin: 03/01/21 09:34 Dose: Not Given Documented by: Miscellaneous (Alphagan~Order Awaiting Action) 1 ea N/A QS [facility] Stop: 03/30/21 22:29 Last Admin: 03/01/21 09:34 Dose: Not Given Documented by: Multivitamins (Multivitamin Tab) 1 tab PO QAM [facility] Stop: 03/31/21 08:59 Last Admin: 03/01/21 09:54 Dose: 1 tab Documented by: Ondansetron HCl (Ondansetron Inj 2 Mg/Ml 2 Ml Vial) 4 mg IV Q4H PRN PRN Reason: Nausea And Vomiting Stop: 03/30/21 19:11 Tamsulosin HCl (Tamsulosin Hcl 0.4 Mg Cap) 0.4 mg PO Q2D [facility] Stop: 03/31/21 08:59 Last Admin: 03/01/21 09:54 Dose: 0.4 mg Documented by: Travoprost (Travoprost Z 0.004% Oph Soln 2.5 Ml Btl) 1 drops OPL HS [facility] Stop: 03/30/21 21:29 Last Admin: 02/28/21 22:14 Dose: Not Given Documented by:
[2021-03-01] MEDS ORDERED: TAMSULOSIN HCL 0.4 MG CAP PO SCH (09:00)
[2021-03-01] MEDS ORDERED: MULTIVITAMIN TAB PO SCH (09:00)
[2021-03-01] MEDS: ALPHAGAN~ORDER AWAITING ACTION SCH (09:34)
[2021-03-01] MEDS: DORZOLAMIDE HCL 2% OPH SOLN 10 ML BTL OP SCH (09:54)
[2021-03-01] MEDS ORDERED: POTASSIUM CHLORIDE CRTAB 20 MEQ TABCR PO ONE (09:55)
[2021-03-01] MEDS: HEPARIN SOD 5,000 UNIT/0.5 ML VIAL SQ SCH (09:56)
--- NOTE | 2021-03-01 12:55 | Hospitalist Progress Note ---
Date of Service March 01, 2021 Assessment & Plan (1) Sinus bradycardia: Plan: Presyncope Sinus bradycardia Likely vasovagal response H/O longstanding asymptomatic sinus bradycardia for many years ECHO: Reviewed, unchanged from prior Negative troponin Avoid AV danna blocking agents Appreciate cardiology input Needs outpatient ZI0 monitor Needs follow-up with cardiology upon discharge (2) Orthostatic hypotension: Plan: Possibly due to hypovolemia Blood pressure stable Adequate hydration (3) CAD (coronary artery disease): Plan: CAD S/P Stent . -Follows with Dr. Mcgowan as an outpatient -Continue ASA 81 mg daily, atorvastatin 40 mg at bedtime (4) Hypokalemia: Plan: Replace and monitor (5) HTN (hypertension): Plan: -BP stable (6) BPH (benign prostatic hyperplasia): Plan: - Continue proscar and flomax DVT PPx: - teds, scds CODE: Full code Admission and Anticipated Discharge Date Admission Date: February 28, 2021 Subjective Patient is seen and examined at bedside States feeling much better today Offers no complaints Bradycardic on monitor Denies any chest pain, dyspnea, dizziness, nausea, diaphoresis, abdominal pain Review of Systems Review of Systems: All systems reviewed & are unremarkable except as noted in Subjective Physical Exam Physical Exam: Physical Exam: Vitals signs as noted above General Appearance:Moderately built and nourished, no apparent distress Head: normocephalic, Atraumatic Eyes: normal inspection, EOMI Neck: supple, Trachea midline Respiratory/Chest: Normal breath sounds, CTA Cardiovascular: S1, S2, No murmur, Bradycardia Abdomen/GI:Soft, Non tender, Bowel sounds present Extremities/Musculoskeletal:normal inspection, no edema Neurologic/Psych:AAOX3, grossly no focal neurological deficits Skin: normal color, warm Results & Data Results & Data ([facility]) Vital Signs (Past 12 Hours) Vital Signs Temp Pulse Pulse Resp BP Pulse Ox 03/01/21 10:23 47 L 03/01/21 07:04 36.6 C 48 L 16 146/70 H 96 03/01/21 04:34 36.8 C 50 L 18 115/58 L 95 Laboratory Results Short CBC 02/28/21 03/01/21 Range/Units 13:30 04:46 WBC 8.71 7.03 (4.8-10.8) K/uL Hgb 14.0 13.1 L (14.0-18.0) g/dL Hct 39.9 L 37.3 L (42-52) % Plt Count 175 161 (130-400) K/uL BMP 02/28/21 03/01/21 13:30 04:46 Sodium 142 143 Potassium 3.3 L 3.6 Chloride 106 110 H Carbon Dioxide 30 29 BUN 18 20 H Creatinine 0.84 0.84 Glucose 160 H 88 Calcium 9.2 8.8 Cardiac Enzymes 02/28/21 02/28/21 03/01/21 Range/Units 13:30 20:16 04:46 Troponin I < 0.015 < 0.015 < 0.015 (0-0.045) ng/ml Liver Function 03/01/21 Range/Units 04:46 Total Bilirubin 1.8 H (0.2-1) mg/dl AST 16 (15-37) U/L ALT 42 (12-78) Alkaline Phosphatase 66 (45-117) U/L Albumin 3.4 (3.4-5.0) gm/dl
--- NOTE | 2021-03-01 13:06 | Discharge Summary ---
Date of Service March 01, 2021 Admission HPI Per Admitting Provider This is a 80 yo M with PMHx of HTN, CAD s/p stent placement, IBS, BPH with LUTS, amenia of chronic disease who presents today from outpatient clinic at [facility] where a rapid response was called due to the patient syncopal episode. Pt was over at [facility] for a routine MRI for the Abdomen to evaluate cysts on the pancreas, liver and spleen routinely per his PCP. He did not eat or drink anything early this morning as he was instructed not to. 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 Within 5 minutes of having his IV placed he felt lightheaded, as if he was going to pass out, and was diaphoretic. He sat down and his symptoms somewhat improved. He denies any chest pain or shortness of breath at that time or currently while here in the ER. He is very athletic, history of running/jogging. Patient runs 2 miles daily in 30 minutes, participates in a warm up x20 minutes prior. Patient notes that his pulse has been in the 50s to 60s for his entire life. His EKG was reviewed from spring 2019 compared to today and is nearly unchanged, but was bradycardic at that point time with heart rate in the 50s. His pulse was consistently in the 40s at [facility], he was given some juice and crackers however glucose stick was 132. His pulse was back into the 50s after the event. After resting for 30 minutes he continued to have a pulse around 40 with a low of 38 per outpatient epic record review. He is not on any beta blockade. Admission Exam Per Admitting Provider Physical Exam Physical Exam: General: awake, alert, no apparent distress, appears much younger than stated age, physically fit Head: Normocephalic, atraumatic ENT: PERRL, EOMI, no pharyngeal exudate, mucous membranes moist Chest: Clear to auscultation, on room air, no adventitious breath sounds Cardiac: Regular rhythm, bradycardic with heart rate at 51 while at bedside, no murmur, no JVD, normal peripheral pulses, good capillary refill Abdominal: NABS x 4 quadrants, soft, nondistended, nontender to palpation, no rebound or guarding Extremities: Normal inspection, no peripheral edema or erythema, calfs nontender to palpation Psych: Normal mood and affect Neuro: AAO x 3, strength intact bilaterally and rated 5/5, no motor deficits, speech is clear, no peripheral sensory deficits Principal Diagnosis Presyncope Sinus Bradycardia Discharge Data Allergies Allergy/AdvReac Type Severity Reaction Status Date / Time Penicillins Allergy Mild RASH Verified 02/28/21 14:09 adhesive Allergy Unknown Rash Verified 02/28/21 14:09 wool Allergy Rash Verified 02/28/21 14:09 Consultations 02/28/21 14:55 ED Decision to Admit Stat 02/28/21 19:12 Consult Cardiology Routine Hospital Course (1) Sinus bradycardia: Presyncope Sinus bradycardia Likely vasovagal response H/O longstanding asymptomatic sinus bradycardia for many years ECHO: Reviewed, unchanged from prior Negative troponin Avoid AV danna blocking agents Appreciate cardiology input Needs outpatient ZI0 monitor Needs follow-up with cardiology upon discharge (2) Orthostatic hypotension: Possibly due to hypovolemia Blood pressure stable Adequate hydration (3) CAD (coronary artery disease): CAD S/P Stent . -Follows with Dr. Mcgowan as an outpatient -Continue ASA 81 mg daily, atorvastatin 40 mg at bedtime (4) Hypokalemia: Replace and monitor (5) HTN (hypertension): -BP stable (6) BPH (benign prostatic hyperplasia): - Continue proscar and flomax DVT PPx: - teds, scds CODE: Full code Total Time Total Time Spent Total Time Spent (In Minutes): 39 minutes Discharge Plan Discharge Items Patient Disposition: Home - Self-Care Reason For Visit: BRADYCARIDA Discharge Diagnosis: Presyncope Sinus Bradycardia Activity: Per Instructions section Exercise/Sports: Gradually increase as tolerated Non-emergency contact: Primary Care Provider and Air Conditioning Technician Call non-emergency contact if: you have any medication questions, your pain is concerning for you and you have a fever Follow-up/Referrals: Helena Ulrich MD [Primary Care Provider] - Diet: Heart Healthy Addtl Attending Provider Instructions: Follow up with your PCP on 03/07/21 at 2:20 Pm as scheduled Follow up with your Air Conditioning Technician Dr. Mcgowan as recommended ---Get ZIO patch arranged as recommended by your Air Conditioning Technician to rule out arrhythmias. Seek immediate medical attention if your symptoms reoccur or worsen Please take all medications as instructed on discharge list below. Please call if you have any questions or problems. You can reach a [facility] hospitalist on duty at [facility] 24 hours a day by calling [phone] Pending Studies at Discharge: No Stand-Alone Forms: My [facility], Smoking Cessation Medications and DC Order Prescriptions: Continued dorzolamide [Trusopt] 2 % Drops 1 drp OPHTHALMIC (EYE) BID RF: 0 Rocklatan 0.02-0.005 % Drops 1 drp OPHTHALMIC (EYE) HS RF: 0 travoprost [Travatan Z] 0.004 % drops 1 drp OPB HS RF: 0 aspirin 81 mg Tablet,Delayed Release (Dr/Ec) 81 mg PO HS RF: 0 tamsulosin 0.4 mg capsule 0.4 mg PO Q OTHER DAY RF: 0 finasteride 5 mg tablet 5 mg PO PM RF: 0 Alphagan P 0.1 % drops 1 drp OPR BID RF: 0 atorvastatin 40 mg tablet 40 mg PO HS RF: 0 multivitamin Tablet 1 tab PO QAM RF: 0 tadalafil 5 mg Tablet 5 mg PO DAILY PRN (Reason: Erectile Dysfunction) RF: 0 melatonin 5 mg 5 mg PO HS PRN (Reason: Sleep) RF: 0 Discharge Orders: Discharge Order (Routine); Ordered 03/01/21 Ordered By: Marcos Munoz Admission Data Admit Date/Time: 02/28/21 15:35 Attending Provider: Marcos Munoz Admit Provider: Ike De Anda Primary Care Provider: Helena Ulrich Other Providers: Ike De Anda ; Chevy Pierce
--- NOTE | 2021-03-01 13:26 | Communication Note ---
Date of Service: March 01, 2021 By CMS guidelines, a determination that the admission or continued stay is not medically necessary has been made by a member of the Utilization Review c ommittee and a physician for this hospital stay. Therefore, a Code 44 will be completed and the inpatient admission will be changed to outpatient. DO Phan [facility] Hospitalist Physician member
[2021-03-01] MEDS ORDERED: FINASTERIDE 5 MG TAB PO SCH (21:00)
[2021-03-01] MEDS ORDERED: ATORVASTATIN 40 MG TAB PO SCH (21:00)
[2021-03-01] MEDS ORDERED: ASPIRIN 81 MG ECTAB PO SCH (21:00)
--- NOTE | 2021-03-01 22:13 | Electrocardiogram Report ---
Test Reason : Blood Pressure : / mmHG Vent. Rate : 061 BPM Atrial Rate : 061 BPM P-R Int : 188 ms QRS Dur : 100 ms QT Int : 426 ms P-R-T Axes : 021 002 -08 degrees QTc Int : 428 ms Normal sinus rhythm Possible Lateral infarct , age undetermined Abnormal ECG When compared with ECG of 08-JUN-2019 19:10, Premature ventricular complexes are no longer Present Confirmed by Tim Urbina ([id number]) on 03/01/2021 10:13:19 PM Referred By: Delmar Ott Confirmed By:Tim Urbina
--- NOTE | 2021-03-01 22:46 | Electrocardiogram Report ---
Test Reason : Blood Pressure : / mmHG Vent. Rate : 050 BPM Atrial Rate : 050 BPM P-R Int : 186 ms QRS Dur : 092 ms QT Int : 442 ms P-R-T Axes : 034 014 018 degrees QTc Int : 402 ms Poor data quality, interpretation may be adversely affected Sinus bradycardia with Premature supraventricular complexes Abnormal ECG When compared with ECG of 28-FEB-2021 13:13, (unconfirmed) Premature supraventricular complexes are now Present T wave inversion no longer evident in Anterior leads Confirmed by Tim Urbina ([id number]) on 03/01/2021 10:45:41 PM Referred By: Delmar Ott Confirmed By:Tim Urbina
== END 2021-03-01 14:14 | disposition home or self-care (01) ==
LOC: ED 12:59 → 2S 15:35 → SUATTDRO 15:35 → INTOOBSV 15:35 → 2S 19:28
DX: Z79.899 Other long term (current) drug therapy; N40.0 Benign prostatic hyperplasia without lower urinary tract symptoms; Z91.048 Other nonmedicinal substance allergy status; R55 Syncope and collapse; K76.89 Other specified diseases of liver; R00.1 Bradycardia, unspecified; Z88.0 Allergy status to penicillin; I25.10 Atherosclerotic heart disease of native coronary artery without angina pectoris; Z79.82 Long term (current) use of aspirin; Z95.5 Presence of coronary angioplasty implant and graft; I10 Essential (primary) hypertension; D73.4 Cyst of spleen; E87.6 Hypokalemia; K86.2 Cyst of pancreas

== ENCOUNTER 2022-10-17 21:22 | Observation (INO) ==
--- NOTE | 2022-10-17 21:36 | Emergency Department Note ---
History of Present Illness General Chief complaint: Weakness Stated complaint: WEAKNESS, DIAPHORETIC, DIZZY Time Seen by Provider: 10/17/22 21:34 History of Present Illness This 82-year-old male patient presents to the emergency department with his for evaluation of dizziness, weakness, and diaphoresis. The patient states that he went for his evening walk and after his walk he became diaphoretic, weak, and dizzy. Symptoms started at about 8:50 pm. He states that he felt faint and got really sweaty and had to sit at the table after his walk. Right now he feels very tired and wiped out. Denies chest pain or SOB currently. [place] like he was breathing very quickly when he had the symptoms, but his breathing has improved slightly right now. Denies any headache, speech abnormalities, gait disturba nces, weakness of his extremities, or any neurological symptoms. Denies abdominal pain or vomiting. Didn't have true nausea, but just felt very faint and didn't feel right. The patient denies recent long car or plane rides or recent injury/trauma/surgery. Denies any personal or family history of blood clots or bleeding disorders. Denies any hormonal medication use. Denies any hemoptysis. Denies any calf pain or swelling. The patient has a history of cardiac stents in Mar 2019 and cardiac ablation in August 2021. He also has a history of bradycardia and his resting heart rate is usually in the 50's per patient. Does not have a pacemaker or defibrillator. He follows with Dr. Sharif of [facility] cardiology. Not on any blood thinners. He did take 81 mg of aspirin today. He did take Cialis earlier tonight. Home Medications Medication Instructions Recorded Confirmed Type aspirin 81 mg tablet,delayed 81 mg PO HS 04/10/19 10/18/22 History release brimonidine 0.1 % eye drops 1 drp OPR BID 04/10/19 10/18/22 History (Alphagan P) finasteride 5 mg tablet 5 mg PO PM 04/10/19 10/18/22 History travoprost 0.004 % eye drops 1 drp OPB HS 04/10/19 10/18/22 History (Travatan Z) atorvastatin 40 mg tablet 40 mg PO HS 04/15/19 10/18/22 History netarsudil 0.02 %-latanoprost 1 drp OPR HS 11/04/19 10/18/22 History 0.005 % eye drops (Rocklatan) multivitamin 1 tab PO QAM 02/28/21 10/18/22 History tadalafil 5 mg tablet 5 mg PO DAILY PRN Erectile 02/28/21 10/18/22 History Dysfunction dorzolamide 2 % eye drops 1 drp OPR BID 10/18/22 10/18/22 History famotidine 20 mg tablet 20 mg PO BID 10/18/22 10/18/22 History latanoprost 0.005 % eye drops 1 drp OPL HS 10/18/22 10/18/22 History melatonin 5 mg tablet 5 mg PO HS PRN Sleep 10/18/22 10/18/22 History metoprolol succinate 25 mg 12.5 mg PO QAM 10/18/22 10/18/22 History tablet,extended release 24 hr silodosin 8 mg capsule 8 mg PO QAM 10/18/22 10/18/22 History sucralfate 1 gram tablet 1 g PO ACHS 10/18/22 10/18/22 History Allergies Allergy/AdvReac Type Severity Reaction Status Date / Time Penicillins Allergy Mild RASH Verified 10/18/22 00:22 adhesive Allergy Unknown Rash Verified 10/18/22 00:22 wool Allergy Rash Verified 10/18/22 00:22 Past Med/Surg History Medical History BPH (benign prostatic hyperplasia) CAD (coronary artery disease) ABIODUN x 1 to LAD on 04/10/19 Diverticulitis Glaucoma History of bradycardia History of cancer hamstring RADIATION/SURGERY HTN (hypertension) Sarcoma of right thigh Surgical History Hamstring tear with surgical repair cancer History of cardiac cath mar 2019 [facility] with stent- bare metal stent dr. 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 Physical Exam Vital Signs Vital Signs - 24 hr 10/17/22 21:24 10/17/22 21:50 10/17/22 21:50 Temperature 36.6 C Temperature Source Oral Pulse Rate 45 L 43 L Pulse Rate [Apical] Pulse Rhythm Regular Pulse Rhythm [Apical] Pulse Strength [Apical] Respiratory Rate 22 16 Respiratory Effort / Characteristics Non-Labored Respiratory Depth Normal Respiratory Pattern Blood Pressure 123/67 Blood Pressure [Right Arm] Blood Pressure Mean 85 Blood Pressure Mean [Right Arm] Pulse Oximetry 97 94 94 Oxygen Delivery Method Room Air Room Air Room Air Sepsis Recent Fever Within 48 Hours No Sepsis New/Unexplained Change in Mental Status No Sepsis Action Taken by Nursing No Action Required 10/17/22 22:05 10/17/22 23:30 Temperature Temperature Source Pulse Rate 49 L Pulse Rate [Apical] 51 L Pulse Rhythm Pulse Rhythm [Apical] Regular Pulse Strength [Apical] Normal Respiratory Rate 14 Respiratory Effort / Characteristics Non-Labored Spontaneous Respiratory Depth Normal Respiratory Pattern Regular Blood Pressure Blood Pressure [Right Arm] 144/73 H Blood Pressure Mean Blood Pressure Mean [Right Arm] 96 Pulse Oximetry 98 Oxygen Delivery Method Room Air Sepsis Recent Fever Within 48 Hours Sepsis New/Unexplained Change in Mental Status Sepsis Action Taken by Nursing VITALS: Vitals are noted on the nurse's note and reviewed by myself. GENERAL: No acute distress, non-diaphoretic. SKIN: Capillary reflex less than 2 seconds. HEAD: No scalp tenderness. No step-offs felt. EARS: Bilateral external auditory canals clear. Bilateral tympanic membranes pe linus aden without erythema or effusion. No hemotympanum. No britt sign. No mastoid tenderness. EYES: Pupils equal round and reactive to light and accommodation. Conjunctivae without injection, sclerae without icterus. Extraocular movements intact without pain. No nystagmus. NOSE: Patent, turbinates without inflammation or discharge. No sinus tenderness. No septal hematoma or bleeding. FACE: No facial bone tenderness. Full range of motion of the jaw without tenderness. No facial droop. MOUTH: Mucous membranes moist. Uvula midline. Airway patent. Tongue does not deviate. NECK: Supple without nuchal rigidity. Cervical spine is nontender. Full range of motion of the neck without tenderness and normal strength. HEART: Bradycardic without murmurs gallops or rubs. LUNGS: Clear to auscultation bilaterally without wheezes, rales or rhonchi. No retractions or accessory muscle use. No chest wall tenderness. ABDOMEN: Positive bowel sounds x 4. Normal tympanic percussion. Soft, nontender, without masses or organomegaly. No guarding or rebound tenderness. MUSCULOSKELETAL: No tenderness of the thoracic or lumbar spine or paraspinal muscles. Normal strength for his age that is equal bilaterally in the upper and lower extremities. Bilateral radial pulses as well as bilateral dorsalis pedis and posterior tibial pulses are 2+ and equal. NEURO: Patient was alert and oriented to person place and time. Normal mental status exam. Normal sensation to light and sharp touch. Cerebellar function intact. No focal neurological deficits. Course Administered Medications Discontinued Medications Aspirin (Aspirin Chew 324 Mg) Confirm Administered Dose 324 mg .ROUTE .[facility] ONE Stop: 10/17/22 21:52 Last Admin: 10/17/22 21:54 Dose: Not Given Documented By: MICHELLE Aspirin (Aspirin Chew 324 Mg) 324 mg PO NOW STA Stop: 10/17/22 21:51 Last Admin: 10/17/22 21:53 Dose: 324 mg Documented By: MICHELLE Sodium Chloride (Nss) 500 mls @ 999 mls/hr IV .Q31M STA Stop: 10/17/22 22:20 Last Infusion: 10/17/22 22:59 Dose: 0 mls/hr Documented By: Admin: 10/17/22 21:54 Dose: 999 mls/hr Documented By: MICHELLE Medical Decision Making Differential Diagnosis Differential diagnosis includes angina, PR, pericarditis, myocarditis, aortic dissection, pleurisy, pneumothorax, PE, pneumonia, pneumomediastinum, esophagitis, esophageal spasm, GERD, perforated esophagus, perforated d uodenal/gastric ulcer, pancreatitis, cholecystitis, costochondritis, musculoskeletal, bronchitis, URI, or others. Laboratory Data Attestation: I reviewed the patient's lab results. 10/17/22 Unknown 10/17/22 Unknown Lab Results 10/17/22 10/17/22 Range/Units 21:58 22:35 Urine Color Yellow Urine Appearance Clear (Clear) Urine pH 7.0 (4.5-7.5) Ur Specific [place] 1.016 (1.000-1.030) Urine Protein Negative (Negative) Urine Glucose (UA) Negative (Negative) Urine Ketones Negative (Negative) Urine Blood Negative (Negative) Urine Nitrite Negative (Negative) Urine Bilirubin Negative (Negative) Urine Urobilinogen Negative (Negative) Ur Leukocyte Esterase Negative (Negative) SARS-CoV-2, RNA, NAAT NEGATIVE (NEGATIVE) Imaging Data Radiologist's Impression: Chest X-Ray 10/17/22 21:50 SINGLE VIEW CHEST CLINICAL HISTORY: Atypical chest pain. FINDINGS: An AP, portable, upright chest radiograph is compared to study dated 02/28/2021. The examination is mildly degraded by portable technique and patient rotation. The heart is enlarged noting atherosclerotic calcification of the thoracic aorta. The pulmonary vasculature is noncongested. There is mild bibasilar scarring/atelectasis. The lungs and pleural spaces are otherwise clear. No pneumothorax is seen. The skeletal structures are osteopenic. The bony thorax is grossly intact. IMPRESSION: Cardiomegaly with no active disease in the chest. ACT 112: Negative or not required by law. Electronically signed by: Edwin Flower M.D. 10/17/2022 10:27 PM MDM Narrative I examined the patient. An IV lock was placed and labs were drawn. He was given aspirin 324 mg p.o. chewed. He was not given any nitroglycerin since he took Cialis earlier tonight. He was given 500 mL normal saline solution bolus. Initial EKG was interpreted by myself as sinus bradycardia at 45 bpm with no acute ST or T wave changes. Repeat EKG was interpreted by myself as sinus bradycardia at 43 bpm with no acute ST or T wave changes. Continuous night monitor: Order was placed for continuous night monitor. Patient was placed on the night monitor and continuous pulse ox. Patient was noted to be in sinus bradycardia at an initial rate of 45 bpm per my interpretation. The patient has a history of bradycardia, but states that his heart rate is normally in the 50s. White blood cell count normal. Hemoglobin low at 12.9. Platelet count normal. Coags were normal. Potassium 3.3 and glucose 145. Total bilirubin 1.4 which appears stable. CMP otherwise unremarkable. Lipase normal. TSH elevated at 5.387, but free T4 normal at 0.96. Urinalysis negative. COVID-negative. First high-sensitivity troponin was normal. Repeat troponin still pending. Chest x-ray was interpreted by myself and read by radiology as above and shows cardiomegaly with no acute abnormalities. The patient was independently evaluated by Dr. Morales, who agrees with my assessment and treatment plan. The patient stated that he continued to feel tired and weak while in the emergency department, but denied any other symptoms while here. Denied any chest pain, shortness of breath, headache, dizziness, abdominal pain, nausea, or vomiting while in the emergency department. Etiologies such as aortic dissection or acute intracranial abnormality were entertained, but we have a low suspicion for these at this time based on history, exam, and vital signs. We do not feel that additional imaging is needed at this time. However, we feel the patient requires admission for further inpatient evaluation and treatment. I spoke with the on-call hospitalist who agreed to admit the patient for further management. Please refer to their dictation for further details. The patient's care was transferred in stable condition. Impression & Plan Near syncope, Diaphoresis, Sinus bradycardia Discharge Plan Visit Data Chief Complaint: Weakness Stated Complaint: WEAKNESS, DIAPHORETIC, DIZZY ED Provider: Primitivo Morales ED Midlevel Provider: Tameka Medina Discharge Problem: Near syncope, Diaphoresis, Sinus bradycardia Patient Disposition: Admitted As Inpatient Condition: Good Discharge Instructions Interventions: ED Discharge Assessment Last Done: 10/18/22 03:15
[2022-10-17] MEDS ORDERED: ASPIRIN CHEW 324 MG PO STA (21:50)
[2022-10-17] MEDS ORDERED: SODIUM CHLORIDE 0.9% 500 ML IV STA (21:50)
[2022-10-17] MEDS ORDERED: ASPIRIN CHEW 324 MG ONE (21:51)
[2022-10-17 22:11] LABS: Basophils # (auto) 0.04 K/uL (0-0.2); Basophils % (auto) 0.7 %; Eosinophils # (auto) 0.08 K/uL (0-0.50); Eosinophils % (auto) 1.4 %; Hematocrit (blood only) 35.7 % (42.0-52.0); Hemoglobin 12.9 g/dl (14.0-18.0); Immature Granulocytes # (auto) 0.05 K/uL (0.01-0.20); Immature Granulocytes % (auto) 0.9 %; Lymphocytes % (auto) 44.2 %; Mean Corpuscular Hemoglobin 33.1 pg (25.0-34.0); Mean Corpuscular Hgb Conc 36.1 g/dL (32.0-36.0); Mean Corpuscular Volume 91.5 fL (80.0-100.0); Mean Platelet Volume 9.9 fL (9.4-12.4); Monocytes # (auto) 0.43 K/uL (0.11-0.59); Monocytes % (auto) 7.6 %; Neutrophils # (auto) 2.55 K/uL (1.40-6.50); Neutrophils % (auto) 45.2 %; Platelet Count 152 K/uL (130-400); RDW Coefficient of Variation 13.2 % (11.5-14.5); RDW Standard Deviation 44.2 fL (36.4-46.3); White Blood Count 5.65 K/ul (4.8-10.8)
--- NOTE | 2022-10-17 22:28 | XRay Report ---
SINGLE VIEW CHEST CLINICAL HISTORY: Atypical chest pain. FINDINGS: An AP, portable, upright chest radiograph is compared to study dated 02/28/2021. The examin ation is mildly degraded by portable technique and patient rotation. The heart is enlarged noting at herosclerotic calcification of the thoracic aorta. The pulmonary vasculature is noncongested. There i s mild bibasilar scarring/atelectasis. The lungs and pleural spaces are otherwise clear. No pneumotho rax is seen. The skeletal structures are osteopenic. The bony thorax is grossly intact. IMPRESSION: Cardiomegaly with no active disease in the chest. ACT 112: Negative or not required by law. Electronically signed by: Edwin Flower M.D. 10/17/2022 10:27 PM
[2022-10-17 22:31] LABS: Albumin Globulin Ratio 1.8 (0.9-2); Albumin Level 4.2 gm/dl (3.4-5.0); BUN Creatinine Ratio 24.7 (10-20); Bilirubin,Total 1.4 mg/dl (0.2-1.0); Calcium 9.1 mg/dl (8.6-10.3); Creatinine Clr Calc Pharmacy 82.9 ml/min; Est GFR (African American) 96.6 ml/min; Est GFR (Non-African American) 83.4 ml/min; Globulin 2.4 gm/dl (2.5-4.0); Magnesium 1.8 mg/dl (1.7-2.4); Potassium 3.3 mmol/L (3.5-5.1); Total Protein 6.6 gm/dl (6.0-8.3)
[2022-10-17 22:45] LABS: Thyroid Stimulating Hormone 5.387 uIu/ml (0.300-4.500)
[2022-10-17 22:50] LABS: Appearance Urine Clear (Clear); Bilirubin Urine Negative (Negative); Blood Urine Negative (Negative); Color Urine Yellow; Glucose Urine UA Negative (Negative); Ketones Urine Negative (Negative); Leukocyte Esterase Urine Negative (Negative); Nitrite Urine Negative (Negative); Protein Urine Negative (Negative); Specific Gravity Urine 1.016 (1.000-1.030); Urobilinogen Urine Negative (Negative)
[2022-10-17 22:52] LABS: Partial Thromboplastin Ratio 0.8; Partial Thromboplastin Time 22.7 Seconds (21.0-31.0); Prothrombin Time 11.4 Seconds (9.0-12.0)
[2022-10-17 23:21] LABS: T4 Free Thyroxine 0.96 ng/dl (0.61-1.60)
--- NOTE | 2022-10-18 00:20 | History & Physical Report ---
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 History of A-fib S/p ablation Not on anticoagulation for possible GI bleed On metoprolol succinate 12.5 mg p.o. 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 Patient had his evening walk and 1 hour later while he was standing in the kitchen he felt like passing out, was diaphoretic and was hard to breathe. He sat down the symptoms were not subsiding and because of his cardiac history got worried and called EMS and came to the hospital. He did not get any chest pain. Currently no shortness of breath. Currently dizziness improved. When he came in his heart rate was in 40s. This is states his heart rate is usually in 50s. No blurred visions. No earache or runny nose or sore throat. Appetite is okay. No nausea. No abdomin al pain. He thinks once in a while has black stools. Micturating okay. Allergies Allergy/AdvReac Type Severity Reaction Status Date / Time Penicillins Allergy Mild RASH Verified 02/28/21 14:09 adhesive Allergy Unknown Rash Verified 02/28/21 14:09 wool Allergy Rash Verified 02/28/21 14:09 Home Medications Medication Instructions Recorded Confirmed Type aspirin 81 mg tablet,delayed 81 mg PO HS 04/10/19 02/28/21 History release brimonidine 0.1 % eye drops 1 drp OPR BID 04/10/19 02/28/21 History (Alphagan P) finasteride 5 mg tablet 5 mg PO PM 04/10/19 02/28/21 History tamsulosin 0.4 mg capsule 0.4 mg PO Q OTHER DAY 04/10/19 02/28/21 History travoprost 0.004 % eye drops 1 drp OPB HS 04/10/19 02/28/21 History (Travatan Z) atorvastatin 40 mg tablet 40 mg PO HS 04/15/19 02/28/21 History dorzolamide 2 % eye drops (Trusopt) 1 drp ophthalmic (eye) BID 11/04/19 02/28/21 History netarsudil 0.02 %-latanoprost 1 drp ophthalmic (eye) HS 11/04/19 02/28/21 History 0.005 % eye drops (Rocklatan) melatonin 5 mg PO HS PRN Sleep 02/28/21 02/28/21 History multivitamin 1 tab PO QAM 02/28/21 02/28/21 History tadalafil 5 mg tablet 5 mg PO DAILY PRN Erectile 02/28/21 02/28/21 History Dysfunction Past Med/Surg History Medical History BPH (benign prostatic hyperplasia) CAD (coronary artery disease) ABIODUN x 1 to LAD on 04/10/19 Diverticulitis Glaucoma History of bradycardia History of cancer hamstring RADIATION/SURGERY HTN (hypertension) Sarcoma of right thigh Surgical History Hamstring tear with surgical repair cancer History of cardiac cath mar 2019 [facility] with stent- bare metal stent dr. fishman/jamal History of colonoscopy 5+ years Leg fracture with surgical repair LEFT Family History Mother Breast cancer Father Diabetes Coronary heart disease Social History Smoking Status: Never smoker Second Hand Exposure: No; Do You Dip or Chew Tobacco: No; Hx Alcohol Use: No Hx Substance Use: No Preferred Language: Brazilian Communication Ability: Effective Pen Tender Required: No Beliefs That Will Affect Care: None Current Living Situation: Spouse Feels Safe at Home: Yes Assistive Devices: None Review of Systems Review of Systems: All systems reviewed & are unremarkable except as noted in Subjective Physical Exam Physical Exam: General- Not in dsitress Head- atraumatic Eyes- PERRL. ENT- oropharynx clear Neck- supple, no JVD. Lungs- clear to auscultation and percussion, no added sounds. Heart- regular rate and rhythm; no murmur, no gallop. Abdomen- normal bowel sounds, soft, nontender, no distension. Extremities- no pretibial edema, no erythema seen. Neuro- alert, oriented x 3; PERRL, no facial palsy; no dysarthria obeys commands , moves extremities. Skin- warm & dry Results & Data Results & Data Vital Signs (Past 12 Hours) Vital Signs Temp Pulse Pulse Resp BP BP Pulse Ox 10/17/22 23:30 51 L 14 144/73 H 98 10/17/22 22:05 49 L 10/17/22 21:50 43 L 16 94 10/17/22 21:50 94 10/17/22 21:24 36.6 C 45 L 22 123/67 97 O2 Del Method 10/17/22 23:30 Room Air 10/17/22 22:05 10/17/22 21:50 Room Air 10/17/22 21:50 Room Air 10/17/22 21:24 Room Air Diagnostic Findings Laboratory Results WBC 5.65 K/ul (4.8-10.8) 10/17/22 Unknown RBC 3.90 M/uL (4.70-6.10) L 10/17/22 Unknown Hgb 12.9 g/dl (14.0-18.0) L 10/17/22 Unknown Hct 35.7 % (42.0-52.0) L 10/17/22 Unknown MCV 91.5 fL (80.0-100.0) 10/17/22 Unknown MCH 33.1 pg (25.0-34.0) 10/17/22 Unknown MCHC 36.1 g/dL (32.0-36.0) H 10/17/22 Unknown RDW Std Deviation 44.2 fL (36.4-46.3) 10/17/22 Unknown RDW Coeff of Jak 13.2 % (11.5-14.5) 10/17/22 Unknown Plt Count 152 K/uL (130-400) 10/17/22 Unknown MPV 9.9 fL (9.4-12.4) 10/17/22 Unknown Immature Gran % (Auto) 0.9 % 10/17/22 Unknown Neut % (Auto) 45.2 % 10/17/22 Unknown Lymph % (Auto) 44.2 % 10/17/22 Unknown [place] % (Auto) 7.6 % 10/17/22 Unknown Eos % (Auto) 1.4 % 10/17/22 Unknown Baso % (Auto) 0.7 % 10/17/22 Unknown Neut # (Auto) 2.55 K/uL (1.40-6.50) 10/17/22 Unknown Lymph # (Auto) 2.50 K/uL (1.2-3.4) 10/17/22 Unknown [place] # (Auto) 0.43 K/uL (0.11-0.59) 10/17/22 Unknown Eos # (Auto) 0.08 K/uL (0-0.50) 10/17/22 Unknown Baso # (Auto) 0.04 K/uL (0-0.2) 10/17/22 Unknown Immature Gran # (Auto) 0.05 K/uL (0.01-0.20) 10/17/22 Unknown PT 11.4 Seconds (9.0-12.0) 10/17/22 Unknown INR 1.0 (0.9-1.1) 10/17/22 Unknown APTT 22.7 Seconds (21.0-31.0) 10/17/22 Unknown PTT Ratio 0.8 10/17/22 Unknown Sodium 138 mmol/L (136-145) 10/17/22 Unknown Potassium 3.3 mmol/L (3.5-5.1) L 10/17/22 Unknown Chloride 106 mmol/L (98-107) 10/17/22 Unknown Carbon Dioxide 25 mmol/L (21-32) 10/17/22 Unknown Anion Gap 7 (3-11) 10/17/22 Unknown BUN 20 mg/dl (6-23) 10/17/22 Unknown Creatinine 0.81 mg/dl (0.6-1.4) 10/17/22 Unknown Est Cr Clr Drug Dosing 82.9 ml/min 10/17/22 Unknown Est GFR ( Amer) 96.6 ml/min 10/17/22 Unknown Est GFR (Non-Af Amer) 83.4 ml/min 10/17/22 Unknown BUN/Creatinine Ratio 24.7 (10-20) H 10/17/22 Unknown Glucose 145 mg/dl (70-99(Fasting)) H 10/17/22 Unknown Calcium 9.1 mg/dl (8.6-10.3) 10/17/22 Unknown Magnesium 1.8 mg/dl (1.7-2.4) 10/17/22 Unknown Total Bilirubin 1.4 mg/dl (0.2-1.0) H 10/17/22 Unknown AST 20 U/L (13-39) 10/17/22 Unknown ALT 22 U/L (7-52) 10/17/22 Unknown Alkaline Phosphatase 71 U/L (34-104) 10/17/22 Unknown Troponin I High Sens 6.0 pg/ml (0-20) 10/17/22 Unknown Total Protein 6.6 gm/dl (6.0-8.3) 10/17/22 Unknown Albumin 4.2 gm/dl (3.4-5.0) 10/17/22 Unknown Globulin 2.4 gm/dl (2.5-4.0) L 10/17/22 Unknown Albumin/Globulin Ratio 1.8 (0.9-2) 10/17/22 Unknown Lipase 13 U/L (11-82) 10/17/22 Unknown TSH 5.387 uIu/ml (0.300-4.500) H 10/17/22 Unknown Free T4 0.96 ng/dl (0.61-1.60) 10/17/22 Unknown Urine Color Yellow 10/17/22 22:35 Urine Appearance Clear (Clear) 10/17/22 22:35 Urine pH 7.0 (4.5-7.5) 10/17/22 22:35 Ur Specific [place] 1.016 (1.000-1.030) 10/17/22 22:35 Urine Protein Negative (Negative) 10/17/22 22:35 Urine Glucose (UA) Negative (Negative) 10/17/22 22:35 Urine Ketones Negative (Negative) 10/17/22 22:35 Urine Blood Negative (Negative) 10/17/22 22:35 Urine Nitrite Negative (Negative) 10/17/22 22:35 Urine Bilirubin Negative (Negative) 10/17/22 22:35 Urine Urobilinogen Negative (Negative) 10/17/22 22:35 Ur Leukocyte Esterase Negative (Negative) 10/17/22 22:35 SARS-CoV-2, RNA, NAAT NEGATIVE (NEGATIVE) 10/17/22 21:58 Impressions Chest X-Ray 10/17/22 21:50 SINGLE VIEW CHEST CLINICAL HISTORY: Atypical chest pain. FINDINGS: An AP, portable, upright chest radiograph is compared to study dated 02/28/2021. The examination is mildly degraded by portable technique and patient rotation. The heart is enlarged noting atherosclerotic calcification of the thoracic aorta. The pulmonary vasculature is noncongested. There is mild bibasilar scarring/atelectasis. The lungs and pleural spaces are otherwise clear. No pneumothorax is seen. The skeletal structures are osteopenic. The bony thorax is grossly intact. IMPRESSION: Cardiomegaly with no active disease in the chest. ACT 112: Negative or not required by law. Electronically signed by: Edwin Flower M.D. 10/17/2022 10:27 PM ECG Additional Comments: ECG marked sinus bradycardia rate of 43 no significant change was found Code Status & VTE Plan VTE Prophylaxis Plan VTE Prophylaxis will be ordered: Yes
[2022-10-18] MEDS ORDERED: MELATONIN 3 MG TAB PO PRN (03:15)
[2022-10-18] MEDS ORDERED: NITROGLYCERIN SL 0.4 MG/TAB TAB SL PRN (03:15)
[2022-10-18] MEDS ORDERED: ACETAMINOPHEN 325 MG TAB PO PRN (03:15)
[2022-10-18] MEDS: SODIUM CHLORIDE 0.9% 1000ML 1,000 ML IV SCH ×2 (03:39→16:28)
[2022-10-18 05:07] LABS: Basophils # (auto) 0.03 K/uL (0-0.2); Basophils % (auto) 0.4 %; Eosinophils # (auto) 0.01 K/uL (0-0.50); Eosinophils % (auto) 0.1 %; Hemoglobin 12.5 g/dl (14.0-18.0); Immature Granulocytes # (auto) 0.02 K/uL (0.01-0.20); Immature Granulocytes % (auto) 0.3 %; Lymphocytes # (auto) 1.24 K/uL (1.2-3.4); Mean Corpuscular Hemoglobin 32.7 pg (25.0-34.0); Mean Corpuscular Hgb Conc 35.7 g/dL (32.0-36.0); Mean Corpuscular Volume 91.6 fL (80.0-100.0); Mean Platelet Volume 9.9 fL (9.4-12.4); Monocytes # (auto) 0.31 K/uL (0.11-0.59); Neutrophils # (auto) 6.14 K/uL (1.40-6.50); Neutrophils % (auto) 79.2 %; Platelet Count 142 K/uL (130-400); RDW Coefficient of Variation 13.2 % (11.5-14.5); RDW Standard Deviation 43.3 fL (36.4-46.3); Red Blood Count 3.82 M/uL (4.70-6.10); White Blood Count 7.75 K/ul (4.8-10.8)
[2022-10-18 05:48] LABS: BUN Creatinine Ratio 24.7 (10-20); Calcium 8.6 mg/dl (8.6-10.3); Est GFR (African American) 100.8 ml/min; Magnesium 1.7 mg/dl (1.7-2.4); Potassium 4.1 mmol/L (3.5-5.1); Troponin I High Sensitivity 7.6 pg/ml (0-20)
--- NOTE | 2022-10-18 07:14 | Electrocardiogram Report ---
Test Reason : Blood Pressure : / mmHG Vent. Rate : 045 BPM Atrial Rate : 045 BPM P-R Int : 202 ms QRS Dur : 108 ms QT Int : 462 ms P-R-T Axes : 055 003 -01 degrees QTc Int : 399 ms Sinus bradycardia Minimal voltage criteria for LVH, may be normal variant Borderline ECG When compared with ECG of 01-MAR-2021 09:20, Premature supraventricular complexes are no longer Present Confirmed by Candido Robert ([id number]) on 10/18/2022 7:13:50 AM Referred By: REFERRED SELF Confirmed By:Luis Antonio Robert
[2022-10-18] MEDS: SUCRALFATE 1 GM TAB PO SCH ×4 (08:48→21:00)
--- NOTE | 2022-10-18 08:53 | Cardiology Consultation ---
Date of Consultation October 18, 2022 Assessment & Plan (1) Near syncope: (2) Vasovagal near-syncope: (3) Hypokalemia: (4) Sinus bradycardia: (5) Orthostatic hypotension: (6) CAD (coronary artery disease): (7) PAF (paroxysmal atrial fibrillation): Plan 82 year old with ASCVD (PCI the mid LAD with a single 2.75 x 22 mm Syed drug- eluting stent, April 11, 2019), longstanding history of asymptomatic sinus bradycardia, and paroxysmal atrial fibrillation status post pulmonary vein isolation in 2021. Patient admitted following a near syncope episode at home. History notable for increased activity in hot humid weather and limited oral fluid intake in a patient chronically prescribed finasteride, silodosin, and tadalafil. Fluids administered with improvement. Mild bradycardia observed on presentation with low dose metoprolol succinate (12.5 mg/day) appropriately held, with improvement in heart rates observed via continuous telemetry monitoring. High sensitivity troponin negative. EKG without acute ST segment change. Resting echocardiography with preserved LV systolic function, EF 60-65%, without wall motion abnormality or significant valvular heart disease. * Telemetry * K+ goal 4.5-5 * Mag goa >2 * Check TSH * No clear Lyme exposures * Hold beta trista (metoprolol succinate 12.5 mg/day) * Continue ASA 81 mg po per day Supervising Physician Co-Signing Physician Notes Attending Staff: Pt seen and evaluated with [facility] staff. Concur with observations and findings. 52 Minutes spent addressing challenges, educating and advancing daily plan of care. 82 yo man presenting with presyncopal events * Hx of Afib s/p ablation * Was on low-dose beta blockers for afib * Not on DOAC - * On ASA 81 mg po per day * Teaching grandson to ride bike - outside/warm day * On Beta blockers * On Alpha blockers * Feelings of light-headedness * No LOC * Sat in chair * Diaphoresis * No chest pain * No palpitations * No hx of * No known HCM * No trauma * Troponins negative * No evidence of ischemia * Pt rx with IV fluids * Beta blockers held * TSH marginally elevated * ECHO - confirmed no or HCM * Plans to observe on telemetry * Encouraged POs * Continue to hold beta blockers * LDL 29 - on Lipitor 40 mg po per day [place] History of Present Illness Reason for Consultation: Presyncope Requesting Physician: Dr. Ayala Attending Physician: Dr. Abdiel MD History of Present Illness 82-year-old male admitted with presyncope. Notes being outside in the heat yesterday helping his grandson learn to ride a bike Notes drinking less than half his normal amount of water Went to the eye doctor for routine evaluation Returned home and ate dinner then went for his usual walk after supper Returned and watched 3/4 of the [employer] he went into the kitchen to set up the table. All of a sudden he felt lightheaded. Notes sitting on the chair and becoming more lightheaded then heavy breathing then significantly diaphoretic. called EMS. No syncope. EKG on presentation revealed sinus bradycardia at 45 bpm with a first degree AV block and voltage criteria for LVH Metoprolol held. Continuous telemetry monitoring revealed sinus bradycardia into the 30's, improving into the 50's Notes heart rates chronically in the 50's. No chest pain. No tachypalpitations. No new or worsening shortness of breath. No recent colds. No vomiting. No diarrhea. No orthopnea, PND, or peripheral edema. No epistaxis, hemoptysis, melena, hematochezia, or hematuria. Cardiac Issues: 1. Longstanding history of asymptomatic sinus bradycardia. 2. ASCVD. Status post PCI the mid LAD with a single 2.75 x 22 mm Syed drug- eluting stent, April 11, 2019 3. Admission to [facility] in February 2021 with probable vasovagal near-syncope episode after needlestick, in the setting of 14 hour fast. Initial EKG revealed junctional rhythm at 40 bpm per documentation. Follow-up outpatient Zio monitoring with paroxysmal atrial fibrillation, 5% burden. 4. Paroxysmal atrial fibrillation status post pulmonary vein isolation in 2021 5. Hypertension 6. Dyslipidemia Allergies Allergy/AdvReac Type Severity Reaction Status Date / Time Penicillins Allergy Mild RASH Verified 10/18/22 00:22 adhesive Allergy Unknown Rash Verified 10/18/22 00:22 wool Allergy Rash Verified 10/18/22 00:22 Home Medications Medication Instructions Recorded Confirmed Type aspirin 81 mg tablet,delayed 81 mg PO HS 04/10/19 10/18/22 History release brimonidine 0.1 % eye drops 1 drp OPR BID 04/10/19 10/18/22 History (Alphagan P) finasteride 5 mg tablet 5 mg PO PM 04/10/19 10/18/22 History travoprost 0.004 % eye drops 1 drp OPB HS 04/10/19 10/18/22 History (Travatan Z) atorvastatin 40 mg tablet 40 mg PO HS 04/15/19 10/18/22 History netarsudil 0.02 %-latanoprost 1 drp OPR HS 11/04/19 10/18/22 History 0.005 % eye drops (Rocklatan) multivitamin 1 tab PO QAM 02/28/21 10/18/22 History tadalafil 5 mg tablet 5 mg PO DAILY PRN Erectile 02/28/21 10/18/22 History Dysfunction dorzolamide 2 % eye drops 1 drp OPR BID 10/18/22 10/18/22 History famotidine 20 mg tablet 20 mg PO BID 10/18/22 10/18/22 History latanoprost 0.005 % eye drops 1 drp OPL HS 10/18/22 10/18/22 History melatonin 5 mg tablet 5 mg PO HS PRN Sleep 10/18/22 10/18/22 History metoprolol succinate 25 mg 12.5 mg PO QAM 10/18/22 10/18/22 History tablet,extended release 24 hr silodosin 8 mg capsule 8 mg PO QAM 10/18/22 10/18/22 History sucralfate 1 gram tablet 1 g PO ACHS 10/18/22 10/18/22 History Patient History Medical History BPH (benign prostatic hyperplasia) CAD (coronary artery disease) ABIODUN x 1 to LAD on 04/10/19 Diverticulitis Glaucoma History of bradycardia History of cancer hamstring RADIATION/SURGERY HTN (hypertension) Sarcoma of right thigh Surgical History Hamstring tear with surgical repair cancer History of cardiac cath mar 2019 [facility] with stent- bare metal stent dr. fishman/jamal History of colonoscopy 5+ years Leg fracture with surgical repair LEFT Family History Mother Breast cancer Father Diabetes Coronary heart disease Social History Smoking Status: Never smoker Second Hand Exposure: No; Do You Dip or Chew Tobacco: No; Hx Alcohol Use: No Hx Substance Use: No Preferred Language: Greenlandic Communication Ability: Effective Overhead Crane Technician Required: No Beliefs That Will Affect Care: None Current Living Situation: Parent Feels Safe at Home: Yes Safety Concerns: Feels Safe At This Time Assistive Devices: Glasses Review of Systems Review of Systems: Complete Review of Systems: Constitutional: No fevers, sweats, or chills. No rash. No known tick bites. HEENT: Glaucoma. Eye doctor yesterday afternoon. Status post cataract extraction bilaterally. No amaurosis fugax. Pulmonary: No history of asthma, emphysema, COPD, or sleep apnea. No history of PE. Cardiac: Walks nights with or on treadmill without cardiopulmonary symptoms GI/Abd: No dysphagia. No GERD. No kidney problems. No liver problems. Gallbladder cyst. No history of pancreatic issues. Vascular: No history of aneurysm or claudication/PAD. Hematologic: No coagulation disorder, anemia, or abnormal bleeding. 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 Neurologic: No history of TIA/CVA, or seizure disorder. Male : BPH. ED. On Cialsis. Endocrine: No history of diabetes mellitus. No thyroid trouble. Complete Review of Systems is as stated above, negative, or noncontributory. Physical Exam Physical Exam: General: Alert, healthy, no distress, well nourished, well developed, comfortable and cooperative Skin: No rash. Eyes: PER. Conjunctiva pink, sclera clear. HENT: Normocephalic. Atraumatic. Neck: No carotid bruits. No JVD. No HJR. Heart: Regular at 56 bpm. Soft apical systolic murmur. No rub. No gallop. PMI is nondisplaced. Lungs: Clear. Abdomen: +BS. Soft. Nontender. No masses. No organomegaly. Extremities: No clubbing, cyanosis, or edema. Pulses: radial=4/4, posterior tibial=3/4. Limited neurological examination: No focal deficit. Results & Data Vital Signs (Past 12 Hours) Vital Signs Temp Pulse Pulse Resp BP BP Pulse Ox 10/18/22 06:55 41 L 10/18/22 03:15 52 L 20 116/67 96 10/18/22 03:15 10/18/22 03:00 56 L 18 135/67 95 10/18/22 02:05 54 L 10/18/22 01:00 53 L 24 129/65 93 10/17/22 23:30 51 L 14 144/73 H 98 10/17/22 22:05 49 L 10/17/22 21:50 43 L 16 94 10/17/22 21:50 94 10/17/22 21:24 36.6 C 45 L 22 123/67 97 Pulse Ox O2 Del Method O2 Del Method 10/18/22 06:55 10/18/22 03:15 Room Air 10/18/22 03:15 96 Room Air 10/18/22 03:00 Room Air 10/18/22 02:05 10/18/22 01:00 Room Air 10/17/22 23:30 Room Air 10/17/22 22:05 10/17/22 21:50 Room Air 10/17/22 21:50 Room Air 10/17/22 21:24 Room Air Laboratory Results Cardiac Enzymes 10/17/22 10/18/22 10/18/22 Range/Units Unknown 00:13 04:26 AST 20 (13-39) U/L Troponin I High Sens 6.0 8.1 7.6 (0-20) pg/ml Coagulation 10/17/22 Range/Units Unknown PT 11.4 (9.0-12.0) Seconds APTT 22.7 (21.0-31.0) Seconds CBC 10/17/22 10/18/22 Range/Units Unknown 04:26 WBC 5.65 7.75 (4.8-10.8) K/ul RBC 3.90 L 3.82 L (4.70-6.10) M/uL Hgb 12.9 L 12.5 L (14.0-18.0) g/dl Hct 35.7 L 35.0 L (42.0-52.0) % Plt Count 152 142 (130-400) K/uL Neut # (Auto) 2.55 6.14 (1.40-6.50) K/uL Lymph # (Auto) 2.50 1.24 (1.2-3.4) K/uL [place] # (Auto) 0.43 0.31 (0.11-0.59) K/uL Eos # (Auto) 0.08 0.01 (0-0.50) K/uL Baso # (Auto) 0.04 0.03 (0-0.2) K/uL Comprehensive Metabolic Panel 10/17/22 10/18/22 Range/Units Unknown 04:26 Sodium 138 139 (136-145) mmol/L Potassium 3.3 L 4.1 D (3.5-5.1) mmol/L Chloride 106 107 (98-107) mmol/L Carbon Dioxide 25 28 (21-32) mmol/L BUN 20 18 (6-23) mg/dl Creatinine 0.81 0.73 (0.6-1.4) mg/dl Glucose 145 H 128 H (70-99(Fasting)) mg/dl Calcium 9.1 8.6 (8.6-10.3) mg/dl AST 20 (13-39) U/L ALT 22 (7-52) U/L Alkaline Phosphatase 71 (34-104) U/L Total Protein 6.6 (6.0-8.3) gm/dl Albumin 4.2 (3.4-5.0) gm/dl Intake and Output 10/17/22 10/18/22 10/18/22 22:59 06:59 14:59 Intake Total 500 / 500 Balance 500 / 500 Intake: IV 500 / 500 Sodium Chloride 0.9% 500 ml @ 500 / 500 999 mls/hr IV .Q31M STA Rx#: [id number] Other: Weight 92 kg Diagnostic Findings April 11, 2019 Coronary Angiography ([facility], Dr. Fishman): Large caliber angiographically normal left main. Medium caliber LAD with proximal luminal irregularities, mildly calcified, with a 70% mid segment stenosis at takeoff of small diagonal/3rd diagonal, distal luminal irregularities. Large caliber, dominant, angiographically normal left circumflex coronary artery. Large OM2, OM3, and PDA without significant disease. Non dominant RCA with luminal irregularities. LVEDP 8. EK10/17/2022 Vent. Rate : 045 BPM Atrial Rate : 045 BPM P-R Int : 202 ms QRS Dur : 108 ms QT Int : 462 ms P-R-T Axes : 055 003 -01 degrees QTc Int : 399 ms Sinus bradycardia Minimal voltage criteria for LVH, may be normal variant Borderline ECG When compared with ECG of 17-DEC-2021 09:20, Premature supraventricular complexes are no longer Present ECHOcardiogram: 2020: LVEF 65%. No major valvular pathology October 18, 2022 TTE Interpretation Summary ([facility], Dr. Brown): Mild concentric LVH. Normal LV wall motion. EF 60-65%. Normal RV size and function. No significant valvular heart disease. 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 Proximal ascending aorta not visualized well enough to allow for measurement.
--- NOTE | 2022-10-18 10:38 | Hospitalist Progress Note ---
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 daily on hold History of CAD s/p stent On aspirin and statin BPH Continue finasteride DVT prophylaxis SCDs for now Full code I spent a total of 45 minutes coordinating, documenting and providing care for this patient excluding time spent in performance of separately billed services Admission and Anticipated Discharge Date Admission Date: October 17, 2022 Subjective Patient seen and examined Reported feeling better Denied any dizziness, headache, cough, chest pain, SOB, palpitation Denied fever, chills, nausea, vomiting, abd pain, diarrhea. Denied dysuria, frequency,hematuria Reported he drank less fluids yesterday due to his ophthalmology appt and didn't want to have to be using the bathroom frequently with his prostate issues Stated he was also outside teaching his grandson how to ride a bicycle yesterday before the episode later in the evening. Physical Exam Constitutional: + well hydrated; no acute distress Eyes: PERRL, conjunctivae normal, anicteric sclerae ENMT: external ear and nose normal, oropharynx normal Respiratory: normal respiratory effort, lungs clear to auscultation Cardiovascular: Rate/Rhythm: regular rhythm and + bradycardic S1 S2 Gastrointestinal (Abdomen): normal bowel sounds, soft, nontender, no hepatosplenomegaly Musculoskeletal: no cyanosis or clubbing, extremities motor strength 5/5 Neurologic: PERRL, EOMI, accommodation nl, no face palsy, no dysarthria Psychiatric: A+Ox3, euthymic affect Results & Data Results & Data Vital Signs (Past 12 Hours) Vital Signs Temp Pulse Pulse Pulse Resp BP BP 10/18/22 10:06 55 L 10/18/22 09:38 36.6 C 57 L 16 146/73 H 10/18/22 08:30 48 L 19 10/18/22 08:00 52 L 23 10/18/22 08:00 132/67 10/18/22 07:30 52 L 19 10/18/22 07:00 44 L 14 10/18/22 06:30 45 L 15 10/18/22 06:00 50 L 17 10/18/22 06:00 129/66 10/18/22 05:30 49 L 21 10/18/22 05:00 48 L 15 10/18/22 04:30 51 L 17 10/18/22 04:00 55 L 22 10/18/22 04:00 121/70 10/18/22 03:30 50 L 16 10/18/22 03:28 51 L 15 10/18/22 03:28 116/67 10/18/22 03:00 53 L 11 L 10/18/22 02:30 56 L 18 10/18/22 02:00 56 L 17 10/18/22 02:00 135/67 10/18/22 01:30 55 L 16 10/18/22 01:04 53 L 18 10/18/22 01:04 129/65 10/18/22 01:00 51 L 18 10/18/22 00:30 51 L 16 10/18/22 00:00 51 L 10/17/22 23:34 52 L 13 10/17/22 23:34 144/73 H 10/17/22 23:30 56 L 18 10/17/22 23:00 55 L 16 10/18/22 06:55 41 L 10/18/22 03:15 52 L 20 116/67 10/18/22 03:15 10/18/22 03:00 56 L 18 135/67 10/18/22 02:05 54 L 10/18/22 01:00 53 L 24 129/65 10/17/22 23:30 51 L 14 144/73 H Pulse Ox Pulse Ox O2 Del Method O2 Del Method 10/18/22 10:06 10/18/22 09:38 98 Room Air 10/18/22 08:30 96 10/18/22 08:00 10/18/22 08:00 10/18/22 07:30 10/18/22 07:00 10/18/22 06:30 10/18/22 06:00 10/18/22 06:00 10/18/22 05:30 95 10/18/22 05:00 97 10/18/22 04:30 94 10/18/22 04:00 97 10/18/22 04:00 10/18/22 03:30 97 10/18/22 03:28 97 10/18/22 03:28 10/18/22 03:00 95 10/18/22 02:30 96 10/18/22 02:00 98 10/18/22 02:00 10/18/22 01:30 95 10/18/22 01:04 93 10/18/22 01:04 10/18/22 01:00 96 10/18/22 00:30 95 10/18/22 00:00 96 10/17/22 23:34 98 10/17/22 23:34 10/17/22 23:30 97 10/17/22 23:00 96 10/18/22 06:55 10/18/22 03:15 96 Room Air 10/18/22 03:15 96 Room Air 10/18/22 03:00 95 Room Air 10/18/22 02:05 10/18/22 01:00 93 Room Air 10/17/22 23:30 98 Room Air Laboratory Results Abnormal lab results 10/17/22 10/17/22 10/17/22 Range/Units Unknown Unknown Unknown RBC 3.90 L (4.70-6.10) M/uL Hgb 12.9 L (14.0-18.0) g/dl Hct 35.7 L (42.0-52.0) % MCHC 36.1 H (32.0-36.0) g/dL Potassium 3.3 L (3.5-5.1) mmol/L BUN/Creatinine Ratio 24.7 H (10-20) Glucose 145 H (70-99(Fasting)) mg/dl Total Bilirubin 1.4 H (0.2-1.0) mg/dl Globulin 2.4 L (2.5-4.0) gm/dl TSH 5.387 H (0.300-4.500) uIu/ml 10/18/22 10/18/22 Range/Units 04:26 04:26 RBC 3.82 L (4.70-6.10) M/uL Hgb 12.5 L (14.0-18.0) g/dl Hct 35.0 L (42.0-52.0) % MCHC (32.0-36.0) g/dL Potassium (3.5-5.1) mmol/L BUN/Creatinine Ratio 24.7 H (10-20) Glucose 128 H (70-99(Fasting)) mg/dl Total Bilirubin (0.2-1.0) mg/dl Globulin (2.5-4.0) gm/dl TSH (0.300-4.500) uIu/ml
[2022-10-18] MEDS: DORZOLAMIDE HCL 2% OPH SOLN 10 ML BTL OPR SCH ×2 (11:34→21:02)
[2022-10-18] MEDS: TAMSULOSIN HCL 0.4 MG CAP PO SCH (11:35)
[2022-10-18] MEDS: FAMOTIDINE 20 MG TAB PO SCH ×2 (11:35→21:01)
[2022-10-18] MEDS: MULTIVITAMIN TAB PO SCH (11:35)
--- NOTE | 2022-10-18 13:47 | Electrocardiogram Report ---
Test Reason : Blood Pressure : / mmHG Vent. Rate : 054 BPM Atrial Rate : 054 BPM P-R Int : 204 ms QRS Dur : 102 ms QT Int : 444 ms P-R-T Axes : 034 014 -01 degrees QTc Int : 421 ms Sinus bradycardia with sinus arrhythmia with occasional Premature ventricular complexes Otherwise normal ECG When compared with ECG of 17-OCT-2022 21:28, Premature ventricular complexes are now Present Confirmed by Candido Robert ([id number]) on 10/18/2022 1:47:06 PM Referred By: REFERRED SELF Confirmed By:Luis Antonio Robert
[2022-10-18 17:34] LABS: Lyme Ab IgG w/WB Rflx Negative (Negative)
[2022-10-18 17:35] LABS: Lyme Ab IgM w/WB Rflx Negative (Negative)
[2022-10-18] MEDS ORDERED: TRAVOPROST Z 0.004% OPH SOLN 2.5 ML BTL OPB SCH (21:00)
[2022-10-18] MEDS ORDERED: ATORVASTATIN 40 MG TAB PO SCH (21:00)
[2022-10-18] MEDS ORDERED: FINASTERIDE 5 MG TAB PO SCH (21:00)
[2022-10-18] MEDS ORDERED: ASPIRIN 81 MG ECTAB PO SCH (21:00)
[2022-10-18] MEDS ORDERED: LATANOPROST 0.005% OP SOLN 2.5 ML BTL OPL SCH (21:00)
[2022-10-19] MEDS: SODIUM CHLORIDE 0.9% 1000ML 1,000 ML IV SCH (04:59)
[2022-10-19 06:24] LABS: Hematocrit (blood only) 32.7 % (42.0-52.0); Hemoglobin 11.5 g/dl (14.0-18.0); Mean Corpuscular Hemoglobin 32.9 pg (25.0-34.0); Mean Corpuscular Hgb Conc 35.2 g/dL (32.0-36.0); Mean Corpuscular Volume 93.4 fL (80.0-100.0); Mean Platelet Volume 10.1 fL (9.4-12.4); Platelet Count 126 K/uL (130-400); RDW Coefficient of Variation 13.3 % (11.5-14.5); RDW Standard Deviation 45.1 fL (36.4-46.3); White Blood Count 7.07 K/ul (4.8-10.8)
[2022-10-19 06:39] LABS: BUN Creatinine Ratio 26.3 (10-20); Calcium 8.3 mg/dl (8.6-10.3); Creatinine Clr Calc Pharmacy 77.1 ml/min; Est GFR (African American) 97.1 ml/min; Est GFR (Non-African American) 83.8 ml/min; Magnesium 1.7 mg/dl (1.7-2.4); Phosphorus 2.5 mg/dl (2.5-4.9); Potassium 3.7 mmol/L (3.5-5.1)
[2022-10-19] MEDS: FAMOTIDINE 20 MG TAB PO SCH (09:17)
[2022-10-19] MEDS: SUCRALFATE 1 GM TAB PO SCH ×2 (09:17→12:03)
[2022-10-19] MEDS: MULTIVITAMIN TAB PO SCH (09:18)
[2022-10-19] MEDS: TAMSULOSIN HCL 0.4 MG CAP PO SCH (09:18)
[2022-10-19] MEDS: DORZOLAMIDE HCL 2% OPH SOLN 10 ML BTL OPR SCH (09:19)
--- NOTE | 2022-10-19 09:25 | Cardiology Progress Note ---
Date of Service October 19, 2022 Assessment & Plan (1) Near syncope: (2) Vasovagal near-syncope: (3) Hypokalemia: (4) Sinus bradycardia: (5) Orthostatic hypotension: (6) CAD (coronary artery disease): (7) PAF (paroxysmal atrial fibrillation): Plan 82 year old male History of ASCVD (PCI the mid LAD with a single 2.75 x 22 mm Kite drug-eluting stent, April 11, 2019) Longstanding history of asymptomatic sinus bradycardia Paroxysmal atrial fibrillation status post pulmonary vein isolation in 2021. Admitted following a near syncope episode at home. History notable for increased activity in hot humid weather and limited oral fluid intake in a patient chronically prescribed finasteride, silodosin, and tadalafil. Fluids administered with improvement. Mild bradycardia observed on presentation with low dose metoprolol succinate (12.5 mg/day) appropriately held. Ongoing mild bradycardia observed, asymptomatic. High sensitivity troponin negative. EKG without acute ST segment change. Resting echocardiography with preserved LV systolic function, EF 60-65%, without wall motion abnormality or significant valvular heart disease. TSH minimally elevated RECOMMENDATIONS/PLAN: No current need for permanent pacemaker implantation Beta-trista therapy (metoprolol succinate 12.5 mg/day) discontinued this admission. Outpatient 14-day Zio monitor at [facility] Continue Aspirin and moderate intensity statin therapy (atorvastatin 40 mg/day) Admission and Anticipated Discharge Date Admission Date: October 17, 2022 Supervising Physician Co-Signing Physician Notes Attending Staff: Pt seen and evaluated with [facility] staff. Concur with observations and findings. 52 Minutes spent addressing challenges, educating and advancing daily plan of care. 82 yo man presenting with presyncopal events * Hx of Afib s/p ablation * Was on low-dose beta blockers for afib * Not on DOAC - * On ASA 81 mg po per day * Teaching grandson to ride bike - outside/warm day * On Beta blockers * On Alpha blockers * Feelings of light-headedness * No LOC * Sat in chair * Diaphoresis * No chest pain * No palpitations * No hx of * No known HCM * No trauma * Troponins negative * No evidence of ischemia * Pt rx with IV fluids * Beta blockers held * TSH marginally elevated * ECHO - confirmed no or HCM Plans - * Reviewed Telemetry * HR in upper 30's in the late night * + snoring hx * Plans for Sleep Study as an outpt * Pt asymptomatic at present * Recommend ambulation with eye on HR * Outpt Zio Patch * Remain off Beta blockers at present * Encouraged POs * LDL 29 - on Lipitor 40 mg po per day * Potential D/C * F/U @ [facility]/ [facility] [place] Subjective Patient seen and examined. Chart, medications, and telemetry reviewed. Telemetry: Sinus bradycardia with heart rates ranging from the upper 30's overnight to 60 bpm, currently 54 bpm. Feeling well. No complaints. Notes chronically with bradycardia. No chest pain, palpitations, or unusual shortness of breath. No orthopnea, PND, or peripheral edema. No lightheadedness or dizziness. Review of Systems Review of Systems: Complete Review of Systems: Constitutional: No fevers, sweats, or chills. No rash. No tick bites. HEENT: Glaucoma. Not on Timolol. Status post cataract extraction bilaterally. No amaurosis fugax. Pulmonary: No history of asthma, emphysema, COPD, or sleep apnea. No history of PE. Cardiac: Walks nights with or on treadmill without cardiopulmonary symptoms GI/Abd: No dysphagia. No GERD. No kidney problems. No liver problems. Gallbladder cyst. No history of pancreatic issues. Vascular: No history of aneurysm or claudication/PAD. Hematologic: No coagulation disorder, anemia, or abnormal bleeding. 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 Neurologic: No history of TIA/CVA, or seizure disorder. Male : BPH. ED. On Cialsis. Endocrine: No history of diabetes mellitus. No thyroid trouble. Complete Review of Systems is as stated above, negative, or noncontributory. Physical Exam Physical Exam: General: Alert, healthy, no distress, well nourished, well developed, comfortable and cooperative Skin: No rash. Eyes: PER. Conjunctiva pink, sclera clear. HENT: Normocephalic. Atraumatic. Neck: No carotid bruits. No JVD. No HJR. Heart: Regular at 50 bpm. Soft apical systolic murmur. No rub. No gallop. PMI is nondisplaced. Lungs: Clear. Abdomen: +BS. Soft. Nontender. No masses. No organomegaly. Extremities: No clubbing, cyanosis, or edema. Pulses: radial=4/4, posterior tibial=3/4. Limited neurological examination: No focal deficit. Results & Data Vital Signs (Past 12 Hours) Vital Signs Temp Pulse Pulse Resp BP Pulse Ox O2 Del Method 10/19/22 07:56 36.8 C 48 L 20 128/61 97 Room Air 10/19/22 03:32 37.3 C 46 L 17 119/70 98 Room Air 10/18/22 22:10 45 L 10/18/22 23:57 36.4 C L 44 L 18 116/69 96 Room Air Laboratory Results Cardiac Enzymes 10/18/22 10/18/22 Range/Units 11:15 16:21 Troponin I High Sens 8.5 11.9 (0-20) pg/ml CBC 10/19/22 Range/Units 05:55 WBC 7.07 (4.8-10.8) K/ul RBC 3.50 L (4.70-6.10) M/uL Hgb 11.5 L (14.0-18.0) g/dl Hct 32.7 L (42.0-52.0) % Plt Count 126 L (130-400) K/uL Comprehensive Metabolic Panel 10/19/22 Range/Units 05:55 Sodium 140 (136-145) mmol/L Potassium 3.7 (3.5-5.1) mmol/L Chloride 110 H (98-107) mmol/L Carbon Dioxide 28 (21-32) mmol/L BUN 21 (6-23) mg/dl Creatinine 0.80 (0.6-1.4) mg/dl Glucose 101 H (70-99(Fasting)) mg/dl Calcium 8.3 L (8.6-10.3) mg/dl Intake and Output 10/18/22 10/19/22 10/19/22 22:59 06:59 14:59 Intake Total 999 1360 / 2360 Balance 999 1360 / 236 Intake: IV 999 / 1999 Sodium Chloride 0.9% 1000ML 1, 999 1000 / 1999 000 ml @ 80 mls/hr IV .[id number] Rx#:[id number] Oral 360 / 360 Other: # Unmeasured Voids 3 Weight 88.8 kg Weight Measurement Method Built in [facility]
--- NOTE | 2022-10-19 11:44 | Discharge Summary ---
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 Patient had his evening walk and 1 hour later while he was standing in the kitchen he felt like passing out, was diaphoretic and was hard to breathe. He sat down the symptoms were not subsiding and because of his cardiac history got worried and called EMS and came to the hospital. He did not get any chest pain. Currently no shortness of breath. Currently dizziness improved. When he came in his heart rate was in 40s. This is states his heart rate is usually in 50s. No blurred visions. No earache or runny nose or sore throat. Appetite is okay. No nausea. No abdominal pain. He thinks once in a while has black stools. Micturating okay. Admission Exam Per Admitting Provider General- Not in dsitress Head- atraumatic Eyes- PERRL. ENT- oropharynx clear Neck- supple, no JVD. Lungs- clear to auscultation and percussion, no added sounds. Heart- regular rate and rhythm; no murmur, no gallop. Abdomen- normal bowel sounds, soft, nontender, no distension. Extremities- no pretibial edema, no erythema seen. Neuro- alert, oriented x 3; PERRL, no facial palsy; no dysarthria obeys commands , moves extremities. Skin- warm & dry Principal Diagnosis Near Syncope Discharge Exam Constitutional + well hydrated; no acute distress Eyes PERRL, conjunctivae normal, anicteric sclerae ENMT external ear and nose normal, oropharynx normal Respiratory normal respiratory effort, lungs clear to auscultation Cardiovascular Rate/Rhythm: regular rhythm and + bradycardic S1 S2 Gastrointestinal (Abdomen) normal bowel sounds, soft, nontender, no hepatosplenomegaly Musculoskeletal no cyanosis or clubbing, extremities motor strength 5/5 Neurologic PERRL, EOMI, accommodation nl, no face palsy, no dysarthria Psychiatric A+Ox3, euthymic affect Discharge Data Allergies Allergy/AdvReac Type Severity Reaction Status Date / Time Penicillins Allergy Mild RASH Verified 10/18/22 00:22 adhesive Allergy Unknown Rash Verified 10/18/22 00:22 wool Allergy Rash Verified 10/18/22 00:22 Consultations 10/17/22 23:06 ED Decision to Admit Stat 10/18/22 08:00 Consult Cardiology Routine Hospital Course (1) Near syncope: 82-year-old male with past medical significant for hypertension, CAD s/p stent, irritable bowel syndrome, BPH, atrial fibrillation s/p ablation of atrial fibrillation , 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,presents with presyncope Near syncope EKG showed bradycardia He does have chronic bradycardia Near syncopal episode may be due to dehydration (based on history: poor fluid intake on the day of presentation and was outside teaching grandson how to ride a bicycle) plus bradycardia Orthostatic was negative for orthostatic hypotension TTE noted EF of 60-65, mild conc LVH, no significant valvular disease, aortic root mildly dilated at 4-4.3cm Got some IVF Hypokalemia on admission, repleted Home metoprolol succinate stopped for now Was evaluated by Cardiology Needs to get zio patch outpatient off the beta trista HR improved to 50-60s History of A-fib S/p ablation Not on anticoagulation for possible GI bleed Metoprolol succinate stopped as above History of CAD s/p stent On aspirin and statin BPH Continue finasteride PCP should arrange sleep study as well as patient reports he has been told he snores and bradycardia was also noted to be increased while sleeping Total Time Total Time Spent Total Time Spent (In Minutes): 40 Total Time Includes: Examination of the Patient, Discharge Planning, Medication Reconciliation and Communication With Other Providers Discharge Plan Discharge Items Patient Disposition: Home - Self-Care Reason For Visit: PRE-SYNCOPE Discharge Diagnosis: Near syncope Bradycardia Condition on Discharge: Good Activity: Resume your previous activity Non-emergency contact: Primary Care Provider and Piece Work Inspector Call non-emergency contact if: you have any medication questions Follow-up/Referrals: Helena Ulrich MD [Primary Care Provider] - Diet: Heart Healthy Addtl Attending Provider Instructions: Mr Santos You came to the hospital after an episode at home where you felt faint. You were evaluated and noted to have low heart rate. You also got some IV fluids. Your metoprolol has been stopped for now. You were evaluated by Cardiology and you will need zio patch testing outpatient. Please ensure follow up with Cardiology Please ensure follow up with your Primary Doctor who will arrange Sleep Study for you. It was a pleasure taking care of you. Pending Studies at Discharge: No Stand-Alone Forms: My [facility], Smoking Cessation Medications and DC Order Prescriptions: Continued Rocklatan 0.02-0.005 % Drops 1 drp OPR HS Rx Instructions: right eye travoprost [Travatan Z] 0.004 % drops 1 drp OPB HS Rx Instructions: left eye aspirin 81 mg Tablet,Delayed Release (Dr/Ec) 81 mg PO HS finasteride 5 mg tablet 5 mg PO PM Alphagan P 0.1 % drops 1 drp OPR BID atorvastatin 40 mg tablet 40 mg PO HS multivitamin Tablet 1 tab PO QAM tadalafil 5 mg Tablet 5 mg PO DAILY PRN (Reason: Erectile Dysfunction) latanoprost 0.005 % drops 1 drp OPL HS sucralfate 1 gram tablet 1 g PO ACHS famotidine 20 mg tablet 20 mg PO BID dorzolamide 2 % drops 1 drp OPR BID melatonin 5 mg Tablet 5 mg PO HS PRN (Reason: Sleep) silodosin 8 mg capsule 8 mg PO QAM Discontinued metoprolol succinate 25 mg tablet extended release 24 hr 12.5 mg PO QAM Discharge Orders: Discharge Order (Routine); Ordered 10/19/22 Ordered By: Rosa Maria Krause/Other Patient Handouts: Heart Disease Intimacy, What Is Syncope, Causes of Syncope, Diagnosing Syncope, Treating Syncope: Prevention Admission Data Admit Date/Time: 10/17/22 23:58 Attending Provider: Rosa Maria Meadows I. Admit Provider: Zac Celis Primary Care Provider: Helena Ulrich Other Providers: Zac Celis ; Chevy Pierce Other Interventions: Discharge Summary Assessment (RN) Last Done: 10/19/22 11:57
--- NOTE | 2022-10-19 12:45 | Electrocardiogram Report ---
Test Reason : Blood Pressure : / mmHG Vent. Rate : 049 BPM Atrial Rate : 049 BPM P-R Int : 188 ms QRS Dur : 096 ms QT Int : 460 ms P-R-T Axes : 054 -01 -10 degrees QTc Int : 415 ms Poor data quality, interpretation may be adversely affected Sinus bradycardia Otherwise normal ECG When compared with ECG of 18-OCT-2022 08:51, Premature ventricular complexes are no longer Present Confirmed by Candido Robert ([id number]) on 10/19/2022 12:45:39 PM Referred By: REFERRED SELF Confirmed By:Luis Antonio Robert
== END 2022-10-19 12:25 | disposition home or self-care (01) ==
LOC: EDINP 21:22 → ED 21:22 → 2S 10-18 03:15

== ENCOUNTER 2024-12-09 11:29 | Inpatient (IN) ==
[2024-12-09 12:14] LABS: Hematocrit (blood only) 39.9 % (42.0-52.0); Hemoglobin 13.6 g/dl (14.0-18.0); Immature Granulocytes # (auto) 0.02 K/uL (0.01-0.20); Immature Granulocytes % (auto) 0.3 %; Mean Corpuscular Hemoglobin 32.2 pg (25.0-34.0); Mean Corpuscular Volume 94.3 fL (80.0-100.0); Platelet Count 169 K/uL (130-400); RDW Standard Deviation 44.9 fL (36.4-46.3); Red Blood Count 4.23 M/uL (4.70-6.10); White Blood Count 5.82 K/ul (4.8-10.8)
[2024-12-09 12:31] LABS: Alanine Aminotransferase 20.0 U/L (7-52); Albumin Globulin Ratio 1.6 (0.9-2); Albumin Level 4.4 gm/dl (3.4-5.0); Alkaline Phosphatase 68.0 U/L (34-104); Anion Gap 5.0 (3-11); Bilirubin,Total 1.8 mg/dl (0.2-1.0); Blood Urea Nitrogen 15.0 mg/dl (6-23); Calcium 9.5 mg/dl (8.6-10.3); Carbon Dioxide 31.0 mmol/L (21-32); Chloride 105.0 mmol/L (98-107); Creatinine Clr Calc Pharmacy 63.8 ml/min; Globulin 2.8 gm/dl (2.5-4.0); Glucose 100.0 mg/dl (70-99(Fasting)); Potassium 4.1 mmol/L (3.5-5.1); Sodium 141.0 mmol/L (136-145); Total Protein 7.2 gm/dl (6.0-8.3)
--- NOTE | 2024-12-09 12:33 | XRay Report ---
XR chest 1V not portable CLINICAL HISTORY: Chest pain, nonspecific COMPARISON STUDY: 09/08/2024 FINDINGS: Heart size and pulmonary vasculature are normal. No consolidation or pleural effusion. No p neumothorax. IMPRESSION: No acute findings. ACT 112: Negative or not required by law. Electronically signed by: Talib Elkins M.D. 12/09/2024 12:31 PM
[2024-12-09 12:41] LABS: INR 1.0 (0.9-1.1); Partial Thromboplastin Time 26 Seconds (21-31); Prothrombin Time 10.9 Seconds (9.0-12.0)
--- NOTE | 2024-12-09 14:57 | Emergency Department Note ---
Impression & Plan Near syncope, Bradycardia, Frequent PVCs ED Provider Note NAME: JOSEPH LAIRD AGE: 84 SEX: M : 1940 ARRIVES VIA: Walk-In INFORMANT: [Patient] ED PROVIDER(S): [Edwin Castaneda MD] CHIEF COMPLAINT: Cardiac assessment HISTORY OF PRESENT ILLNESS: The patient is an 84-year-old male presents to the ER with episode of what sounds like near syncope. The patient states that just over 3 hours ago, he was sitting and reading and felt some tingling in his forehead. He became clammy and had some sweats. He checked his pulse and it was irregular and slow, he recorded a reading of 30 some beats per minute on his pulse oximeter. His symptoms lasted a few minutes and then resolved. He is now without complaints. The patient does have a history of a lower heart rate although, his heart rate is typically in the 40s or 50s, not the 30s. PMHx/PSHx/Social Hx: See Below PHYSICAL EXAM: GENERAL: Patient is in no acute distress. HEENT: No acute trauma, normocephalic atraumatic, mucous membranes moist, no nasal congestion. NECK: No stridor, no adenopathy, no meningismus, trachea is midline. LUNGS: Clear to auscultation bilaterally, no wheeze, no rhonchi, breath sounds equal. HEART: Bradycardic with a regular rhythm, no murmurs. ABDOMEN: Soft, nontender, no peritonitis. EXTREMITIES: No cyanosis, full range of motion of all the joints without pain or difficulty. NEUROLOGIC: Oriented x 3, no acute motor or sensory deficits, no focal weakness. SKIN: No jaundice, no diaphoresis. DIFFERENTIAL DIAGNOSIS: Dysrhythmia, PACs, PVCs, MA, among others. EMERGENCY DEPARTMENT PROCEDURES: MEDICAL DECISION MAKING: There is no leukocytosis. A very subtle anemia was seen. There was a normal platelet count. No bandemia. No coagulopathy. No renal failure or significant electrolyte abnormality. No worrisome liver enzyme elevation. ECG showed a sinus bradycardia with frequent PVCs. No ST elevation. Cardiac enzyme testing x 1 was not consistent with acute cardiac injury. The patient appeared to be in euthyroid state. Chest x-ray did not show pneumonia or CHF. On exam, patient was without complaints and resting comfortably. He was bradycardic on the court recording monitor. I did speak with cardiology on-call. Given the lower heart rate, given the near syncopal spell and the fact that he is not on rate limiting medications, admission and cardiac monitoring was felt warranted. I spoke with the patient and family, I did speak with case management, the on- call hospitalist was consulted. Prior/Outside records/notes reviewed: None ECG per my interpretation: Indication was near syncope. The ECG shows a sinus bradycardia with a rate of 56. PVCs are present. No ST elevation. QTc is 409. Continuous Cardiac Monitoring per my interpretation: An order was placed for continuous cardiac monitoring. The monitor shows a rate of 41 with sinus bradycardia with PVCs. Imaging/x-ray results per my interpretation: Chest x-ray does not show cardiomegaly or CHF. Chronic Medical/Social conditions affecting care: Advanced age. Care/Management discussed with: [facility] cardiology on-call. Case management and the on-call hospitalist. Level of care consideration(s): After review of the information above and other included data: --I believe the patient requires escalation of care to admission DISPOSITION: Admission Past Med/Surg History Problem List (Updated 12/10/24 @ 11:27 by Edwin Castaneda MD) Frequent PVCs (Acute) Bradycardia (Acute) Near syncope (Acute) Diaphoresis (Acute) Near syncope (Acute) Vasovagal near-syncope Sinus bradycardia (Acute) Symptomatic bradycardia (Acute) Medical History PAF (paroxysmal atrial fibrillation) Weakness Glaucoma HTN (hypertension) BPH (benign prostatic hyperplasia) CAD (coronary artery disease) ABIODUN x 1 to LAD on 04/10/19 Orthostatic hypotension Hypokalemia Sarcoma of right thigh Diverticulitis History of cancer hamstring RADIATION/SURGERY History of bradycardia Surgical History History of colonoscopy 5+ years History of cardiac cath mar 2019 [facility] with stent- bare metal stent dr. fishman/jamal Leg fracture with surgical repair LEFT Hamstring tear with surgical repair cancer Family History Mother Breast cancer Father Diabetes Coronary heart disease Social History Smoking Status: Never smoker Second Hand Exposure: No; Do You Dip or Chew Tobacco: No; Hx Alcohol Use: No Hx Substance Use: No Preferred Language: Tajik Communication Ability: Effective Issue Clerk Required: No Beliefs That Will Affect Care: None Current Living Situation: Spouse Other Information That Helps Us Care for You: No Feels Safe at Home: Yes Safety Concerns: Feels Safe At This Time Assistive Devices: Glasses Allergies Allergies Allergy/AdvReac Type Severity Reaction Status Date / Time Penicillins Allergy Mild RASH Verified 10/18/22 00:22 adhesive Allergy Unknown Rash Verified 10/18/22 00:22 wool Allergy Rash Verified 10/18/22 00:22 Home Meds Home Medications Medication Instructions Recorded Confirmed aspirin 81 mg tablet,delayed 81 mg PO DAILY 04/10/19 12/09/24 release finasteride 5 mg tablet 5 mg PO DAILY 04/10/19 12/09/24 atorvastatin 40 mg tablet 40 mg PO DAILY 04/15/19 12/09/24 netarsudil 0.02 %-latanoprost 1 drp OPR HS 11/04/19 12/09/24 0.005 % eye drops (Rocklatan) multivitamin 1 tab PO HS 02/28/21 12/09/24 tadalafil 5 mg tablet 20 mg PO HS PRN Erectile 02/28/21 12/09/24 Dysfunction dorzolamide 2 % eye drops 1 drp OPR BID 10/18/22 12/09/24 famotidine 20 mg tablet 20 mg PO BID 10/18/22 12/09/24 latanoprost 0.005 % eye drops 1 drp OPL HS 10/18/22 12/09/24 losartan 25 mg tablet 25 mg PO DAILY 12/09/24 12/09/24 sennosides 8.6 mg-docusate sodium 1 tab PO HS 12/09/24 12/09/24 50 mg tablet (Senna Plus) Results & Data (ED) Vital Signs Vital Signs - 24 hr 12/09/24 11:36 12/09/24 15:16 12/09/24 15:20 Temperature 36.6 C Temperature Source Temporal Artery Scan Pulse Rate 33 L 51 L Pulse Rate [Left Finger] 50 L Respiratory Rate 14 21 Respiratory Effort / Characteristics Non-Labored Spontaneous Respiratory Depth Normal Blood Pressure 173/68 H Blood Pressure [Left Arm] 144/54 H Blood Pressure Mean 103 Blood Pressure Mean [Left Arm] 84 Pulse Oximetry 100 98 Oxygen Delivery Method Room Air Sepsis Recent Fever Within 48 Hours No Sepsis New/Unexplained Change in Mental Status No Sepsis Action Taken by Nursing No Action Required Home Medications Current Medication List: was personally reviewed by me Laboratory Data Attestation: I reviewed the patient's lab results. 12/10/24 07:43 12/10/24 07:43 Lab Results 12/09/24 Range/Units 11:54 WBC 5.82 (4.8-10.8) K/ul RBC 4.23 L (4.70-6.10) M/uL Hgb 13.6 L (14.0-18.0) g/dl Hct 39.9 L (42.0-52.0) % MCV 94.3 (80.0-100.0) fL MCH 32.2 (25.0-34.0) pg MCHC 34.1 (32.0-36.0) g/dL RDW Std Deviation 44.9 (36.4-46.3) fL RDW Coeff of Jak 13.2 (11.5-14.5) % Plt Count 169 (130-400) K/uL MPV 9.5 (9.4-12.4) fL Immature Gran % (Auto) 0.3 % Neut % (Auto) 69.5 % Lymph % (Auto) 23.0 % [place] % (Auto) 6.0 % Eos % (Auto) 0.7 % Baso % (Auto) 0.5 % Neut # (Auto) 4.04 (1.40-6.50) K/uL Lymph # (Auto) 1.34 (1.20-3.40) K/uL [place] # (Auto) 0.35 (0.11-0.59) K/uL Eos # (Auto) 0.04 (0.00-0.50) K/uL Baso # (Auto) 0.03 (0.00-0.20) K/uL Immature Gran # (Auto) 0.02 (0.01-0.20) K/uL PT 10.9 (9.0-12.0) Seconds INR 1.0 (0.9-1.1) APTT 26 (21-31) Seconds PTT Ratio 1.0 Sodium 141 (136-145) mmol/L Potassium 4.1 (3.5-5.1) mmol/L Chloride 105 (98-107) mmol/L Carbon Dioxide 31 (21-32) mmol/L Anion Gap 5 (3-11) BUN 15 (6-23) mg/dl Creatinine 0.92 (0.6-1.4) mg/dl Est Cr Clr Drug Dosing 63.8 ml/min eGFR 82.54 BUN/Creatinine Ratio 16.3 (10-20) Glucose 100 H (70-99(Fasting)) mg/dl Calcium 9.5 (8.6-10.3) mg/dl Magnesium 2.0 (1.7-2.4) mg/dl Total Bilirubin 1.8 H (0.2-1.0) mg/dl AST 19 (13-39) U/L ALT 20 (7-52) U/L Alkaline Phosphatase 68 (34-104) U/L Troponin I High Sens 8.1 (0-20) pg/ml Total Protein 7.2 (6.0-8.3) gm/dl Albumin 4.4 (3.4-5.0) gm/dl Globulin 2.8 (2.5-4.0) gm/dl Albumin/Globulin Ratio 1.6 (0.9-2) TSH 2.631 (0.300-4.500) uIu/ml Administered Medications Aspirin (Aspirin 81 Mg Ectab) 81 mg PO DAILY SUNITA Stop: 01/09/25 08:59 Last Admin: 12/10/24 08:07 Dose: 81 mg Documented By: ANATOLY Atorvastatin Calcium (Atorvastatin 40 Mg Tab) 40 mg PO DAILY SUNITA Stop: 01/09/25 08:59 Last Admin: 12/10/24 08:07 Dose: 40 mg Documented By: ANATOLY Dorzolamide HCl (Dorzolamide Hcl 2% Oph Soln 10 Ml Btl) 1 drops OPR BID SUNITA Stop: 01/08/25 20:59 Last Admin: 12/10/24 08:06 Dose: 1 drops Documented By: Admin: 12/09/24 20:25 Dose: Not Given Documented By: arin Enoxaparin Sodium (Enoxaparin Inj 40 Mg/0.4 Ml Syr) 40 mg SQ DAILY SUNITA Stop: 01/09/25 08:59 Last Admin: 12/10/24 08:07 Dose: 40 mg Documented By: ANATOLY Famotidine (Famotidine 20 Mg Tab) 20 mg PO BID SUNITA Stop: 01/08/25 20:59 Last Admin: 12/10/24 08:12 Dose: 20 mg Documented By: Admin: 12/09/24 20:37 Dose: 20 mg Documented By: arin Finasteride (Finasteride 5 Mg Tab) 5 mg PO DAILY SUNITA Stop: 01/09/25 08:59 Last Admin: 12/10/24 08:07 Dose: 5 mg Documented By: ANATOLY Latanoprost (Latanoprost 0.005% Op Soln 2.5 Ml Btl) 1 drops OPL HS SUNITA Stop: 01/08/25 20:59 Last Admin: 12/09/24 20:38 Dose: 1 drops Documented By: arin Losartan Potassium (Losartan Potassium 25 Mg Tab) 25 mg PO DAILY SUNITA Stop: 01/09/25 08:59 Last Admin: 12/10/24 08:07 Dose: 25 mg Documented By: ANATOLY Miscellaneous (Order Awaiting Action) 1 each N/A QS SUNITA Stop: 01/09/25 00:00 Last Admin: 12/10/24 08:08 Dose: Not Given Documented By: Admin: 12/10/24 00:19 Dose: Not Given Documented By: arin Senna/Docusate Sodium (Docusate Sodium/Senna 50/8.6mg Tab) 1 tab PO HS SUNITA Stop: 01/08/25 20:59 Last Admin: 12/09/24 20:37 Dose: 1 tab Documented By: arin Discontinued Medications Multivitamins (Multivitamin Tab) 1 tab PO QAM SUNITA Stop: 01/09/25 08:59 Last Admin: 12/10/24 09:06 Dose: Not Given Documented By: ANATOLY Imaging Data Radiologist's Impression: Chest X-Ray 12/09/24 11:39 XR chest 1V not portable CLINICAL HISTORY: Chest pain, nonspecific COMPARISON STUDY: 09/08/2024 FINDINGS: Heart size and pulmonary vasculature are normal. No consolidation or pleural effusion. No pneumothorax. IMPRESSION: No acute findings. ACT 112: Negative or not required by law. Electronically signed by: Talib Elkins M.D. 12/09/2024 12:31 PM Discharge Plan Visit Data Chief Complaint: Cardiac Assessment Stated Complaint: HEART BEATING SLOW, SWEATY, FEELING FUNNY ED Provider: Edwin Castaneda Discharge Problem: Near syncope, Bradycardia, Frequent PVCs Patient Disposition: Admitted As Inpatient Condition: Fair Discharge Instructions Interventions: ED Discharge Assessment Last Done: 12/09/24 16:40
--- NOTE | 2024-12-09 15:19 | History & Physical Report ---
Date of Service December 09, 2024 Assessment & Plan (1) Symptomatic bradycardia: (2) PAF (paroxysmal atrial fibrillation): (3) CAD (coronary artery disease): (4) BPH (benign prostatic hyperplasia): Plan 84 year old male with PMH significant for atrial fibrillation s/p ablation (2021), hypertension, CAD s/p stent (2019), IBS, diverticulosis, LEIGH on CPAP, BPH and glaucoma who presents to the ED on 12/09/2024 with bradycardia. Symptomatic bradycardia Patient presenting with diaphoresis and HR in the 30s EKG revealed sinus bradycardia with frequent PVCs at 56bpm Telemetry revealed HR as low as 33 Labs unremarkable without electrolyte disturbances Add TSH to labs Med list reviewed without any that would cause bradycardia Obtain updated echo - last echo in 2022 revealed mild concentric LVH, normal LV wall motion, LVEF 60-65%, no significant valvular disease, mild aortic root dilation Cardiology consulted: appreciate recs Atrial fibrillation s/p ablation (2021) Not on AC or beta trista Hypertension Continue losartan CAD s/p stent (2019) Continue baby aspirin and statin LEIGH on CPAP Continue CPAP HS BPH Continue finasteride and silodosin History of GI bleeding Continue famotidine Glaucoma Continue eye drops DVT Prophylaxis: SQ lovenox Code Status: FULL CODE - As per discussion at bedside with the patient. PCP: Helena Ulrich Disposition: admit to PCU Patient seen in collaboration with Dr Meadows. Please see addendum. I spent a total of 75 minutes coordinating, documenting and providing care for this patient excluding time spent in the performance of separately billed services or time spent by another provider/QHP. Admission and Anticipated Discharge Date Admission Date: 12/09/2024 History of Present Illness Chief Complaint: bradycardia Primary Care Provider: Helena Ulrich MD 84 year old male with PMH significant for atrial fibrillation s/p ablation (2021), hypertension, CAD s/p stent (2019), IBS, diverticulosis, LEIGH on CPAP, BPH and glaucoma who presents to the ED on 12/09/2024 with bradycardia. He reports that he woke up in his usual state of health this morning. Did a 33 minute walking workout on the treadmill and took a shower. When he sat down after his shower, all of a sudden he felt a tingling sensation in his forehead and became diaphoretic and clammy. He felt his pulse and noticed skipped beats where he had two regular beats then a skipped beat. He had a pulse ox that he applied and saw that his heart rate was in the 30s. The tingling sensation was only momentary and his clamminess persisted throughout checking his pulse ox. He sought evaluation as soon as he was feeling well enough to come to the ED. He denies any dizziness or lightheadedness, feeling faint or syncopal, chest pain, SOB, abdominal pain, N/V. He notes a history of PVCs but reports he has never felt anything like this before. Patient did take his medications this morning and reports no recent changes to any doses or new medications. Allergies Allergy/AdvReac Type Severity Reaction Status Date / Time Penicillins Allergy Mild RASH Verified 10/18/22 00:22 adhesive Allergy Unknown Rash Verified 10/18/22 00:22 wool Allergy Rash Verified 10/18/22 00:22 Home Medications Medication Instructions Recorded Confirmed Type aspirin 81 mg tablet,delayed 81 mg PO DAILY 04/10/19 12/09/24 History release finasteride 5 mg tablet 5 mg PO DAILY 04/10/19 12/09/24 History atorvastatin 40 mg tablet 40 mg PO DAILY 04/15/19 12/09/24 History netarsudil 0.02 %-latanoprost 1 drp OPR HS 11/04/19 12/09/24 History 0.005 % eye drops (Rocklatan) multivitamin 1 tab PO HS 02/28/21 12/09/24 History tadalafil 5 mg tablet 20 mg PO HS PRN Erectile 02/28/21 12/09/24 History Dysfunction dorzolamide 2 % eye drops 1 drp OPR BID 10/18/22 12/09/24 History famotidine 20 mg tablet 20 mg PO BID 10/18/22 12/09/24 History latanoprost 0.005 % eye drops 1 drp OPL HS 10/18/22 12/09/24 History losartan 25 mg tablet 25 mg PO DAILY 12/09/24 12/09/24 History sennosides 8.6 mg-docusate sodium 1 tab PO HS 12/09/24 12/09/24 History 50 mg tablet (Senna Plus) Past Med/Surg History Problem List (Updated 12/09/24 @ 15:16 by MINDY Andersen) Diaphoresis (Acute) Near syncope (Acute) Vasovagal near-syncope Sinus bradycardia (Acute) Symptomatic bradycardia (Acute) Medical History (Updated 12/09/24 @ 15:16 by MINDY Andersen) PAF (paroxysmal atrial fibrillation) Weakness Glaucoma HTN (hypertension) BPH (benign prostatic hyperplasia) CAD (coronary artery disease) ABIODUN x 1 to LAD on 04/10/19 Orthostatic hypotension Hypokalemia Sarcoma of right thigh Diverticulitis History of cancer hamstring RADIATION/SURGERY History of bradycardia Surgical History History of colonoscopy 5+ years History of cardiac cath mar 2019 [facility] with stent- bare metal stent dr. fishman/jamal Leg fracture with surgical repair LEFT Hamstring tear with surgical repair cancer Family History Mother Breast cancer Father Diabetes Coronary heart disease Social History Smoking Status: Never smoker Second Hand Exposure: No; Do You Dip or Chew Tobacco: No; Hx Alcohol Use: No Hx Substance Use: No Preferred Language: Yoruba Communication Ability: Effective Supervisor [employer] Required: No Beliefs That Will Affect Care: None Current Living Situation: Parent Feels Safe at Home: Yes Assistive Devices: Glasses Review of Systems Review of Systems: All systems reviewed & are unremarkable except as noted in HPI & below Physical Exam Physical Exam: Refer to exam by Dr Meadows Results & Data Results & Data Vital Signs (Past 12 Hours) Vital Signs Temp Pulse Resp BP Pulse Ox O2 Del Method 12/09/24 11:36 36.6 C 33 L 14 173/68 H 100 Room Air Laboratory Results Short CBC 12/09/24 Range/Units 11:54 WBC 5.82 (4.8-10.8) K/ul Hgb 13.6 L (14.0-18.0) g/dl Hct 39.9 L (42.0-52.0) % Plt Count 169 (130-400) K/uL BMP 12/09/24 11:54 Sodium 141 Potassium 4.1 Chloride 105 Carbon Dioxide 31 BUN 15 Creatinine 0.92 Glucose 100 H Calcium 9.5 Liver Function 12/09/24 Range/Units 11:54 Total Bilirubin 1.8 H (0.2-1.0) mg/dl AST 19 (13-39) U/L ALT 20 (7-52) U/L Alkaline Phosphatase 68 (34-104) U/L Albumin 4.4 (3.4-5.0) gm/dl I have independently reviewed and interpreted patient's admitting labs including CBC, CMP, PTT, PT/INR, troponin. Diagnostic Findings Chest X-Ray 12/09/24 11:39 XR chest 1V not portable CLINICAL HISTORY: Chest pain, nonspecific COMPARISON STUDY: 09/08/2024 FINDINGS: Heart size and pulmonary vasculature are normal. No consolidation or pleural effusion. No pneumothorax. IMPRESSION: No acute findings. ACT 112: Negative or not required by law. Electronically signed by: Talib Elkins M.D. 12/09/2024 12:31 PM ECG Additional Comments: I have independently reviewed and interpreted patient's admitting EKG which revealed: sinus bradycardia with PVCs at a rate of 56bpm Code Status & VTE Plan Code Status Full Code Supervising Physician Co-Signing Physician Notes Presents with bradycardia this AM Had breakfast, walked on treadmill for a few mins and showered. Then while sitting reading, had an unusual sensation in his head. Checked his pulse and was low in 30s with skipped beats. Was also clammy at the time. Denied syncope, chest pain or shortness of breath On exam, General: Not in distress Eyes: PERRL, conjunctivae normal, not pale, anicteric sclerae, EOM intact bilaterally ENMT: External ear and nose normal, oropharynx normal Respiratory: Normal respiratory effort, no respiratory distress, lungs clear to auscultation Cardiovascular: Bradycardic, S1 S2 Gastrointestinal (Abdomen): Abdomen is not distended, soft, non-tender to palpation, normal bowel sounds Musculoskeletal: Trace ankle edema Neurologic: Alert and oriented x 3, No focal weakness, sensation grossly intact Psychiatric: Euthymic affect Symptomatic bradycardia HR was in 30s on presentation to ER He reports his HR is usually 50-70s HR currently at 55-60 EKG showed sinus bradycardia with PVC Reviewed home meds. No recent changes Get TSH with fT4 Check Mag Keep on tele Cards consult Get TTE Other plans as detailed by Kassandra GUILLEN
[2024-12-09 15:56] LABS: Magnesium 2.0 mg/dl (1.7-2.4)
[2024-12-09 16:41] LABS: Thyroid Stimulating Hormone 2.631 uIu/ml (0.300-4.500)
[2024-12-09] MEDS ORDERED: POLYETHYLENE (MIRALAX) 17 GM PACK PO PRN (16:56)
[2024-12-09] MEDS ORDERED: ACETAMINOPHEN 325 MG TAB PO PRN (16:56)
[2024-12-09] MEDS ORDERED: ONDANSETRON INJ 2 MG/ML 2 ML VIAL IV PRN (16:56)
[2024-12-09] MEDS ORDERED: ALUMINUM/MAGNESIUM SUSP 30 ML UDC PO PRN (16:56)
[2024-12-09] MEDS ORDERED: INFLUENZA VACC TS2025-26(65y+)/PF (IIV3) 0.5mL Syr IM ONE (18:45)
[2024-12-09] MEDS: DORZOLAMIDE HCL 2% OPH SOLN 10 ML BTL OPR SCH (20:25)
[2024-12-09] MEDS: DOCUSATE SODIUM/SENNA 50/8.6MG TAB PO SCH (20:37)
[2024-12-09] MEDS: FAMOTIDINE 20 MG TAB PO SCH (20:37)
[2024-12-09] MEDS: LATANOPROST 0.005% OP SOLN 2.5 ML BTL OPL SCH (20:38)
[2024-12-10] MEDS: ASPIRIN 81 MG ECTAB PO SCH (08:07)
[2024-12-10] MEDS: ENOXAPARIN INJ 40 MG/0.4 ML SYR SQ SCH (08:07)
[2024-12-10] MEDS: FINASTERIDE 5 MG TAB PO SCH (08:07)
[2024-12-10] MEDS: LOSARTAN POTASSIUM 25 MG TAB PO SCH (08:07)
[2024-12-10] MEDS: ATORVASTATIN 40 MG TAB PO SCH (08:07)
[2024-12-10] MEDS: MULTIVITAMIN TAB PO SCH ×2 (08:09→21:26)
[2024-12-10 08:15] LABS: Hematocrit (blood only) 35.8 % (42.0-52.0); Hemoglobin 12.6 g/dl (14.0-18.0); Mean Corpuscular Hemoglobin 32.6 pg (25.0-34.0); Mean Corpuscular Volume 92.7 fL (80.0-100.0); Platelet Count 151 K/uL (130-400); RDW Standard Deviation 44.2 fL (36.4-46.3); Red Blood Count 3.86 M/uL (4.70-6.10); White Blood Count 5.13 K/ul (4.8-10.8)
[2024-12-10 08:30] LABS: Anion Gap 6.0 (3-11); Blood Urea Nitrogen 19.0 mg/dl (6-23); Calcium 8.9 mg/dl (8.6-10.3); Carbon Dioxide 29.0 mmol/L (21-32); Chloride 107.0 mmol/L (98-107); Creatinine Clr Calc Pharmacy 73.2 ml/min; Glucose 112.0 mg/dl (70-99(Fasting)); Magnesium 1.9 mg/dl (1.7-2.4); Potassium 3.9 mmol/L (3.5-5.1); Sodium 142.0 mmol/L (136-145)
[2024-12-10] MEDS ORDERED: Nursing to Pharmacy Communication SCH (09:15)
--- NOTE | 2024-12-10 12:20 | XCELERA ---
[id number]\[id number]
--- NOTE | 2024-12-10 12:36 | Hospitalist Progress Note ---
Date of Service December 10, 2024 Assessment & Plan (1) Symptomatic bradycardia: (2) PAF (paroxysmal atrial fibrillation): (3) CAD (coronary artery disease): (4) BPH (benign prostatic hyperplasia): Plan 84 year old male with PMH significant for atrial fibrillation s/p ablation (2021), hypertension, CAD s/p stent (2019), IBS, diverticulosis, LEIGH on CPAP, BPH and glaucoma who presents to the ED on 12/09/2024 with bradycardia. Symptomatic bradycardia Patient presenting with diaphoresis and HR in the 30s EKG revealed sinus bradycardia with frequent PVCs at 56bpm Telemetry revealed HR as low as 33 Med list reviewed without any that would cause bradycardia Obtain updated echo - last echo in 2022 revealed mild concentric LVH, normal LV wall motion, LVEF 60-65%, no significant valvular disease, mild aortic root dilation Clinically stable without any more symptoms and the heart rate went down to 30s during night Electrolytes unremarkable and TSH normal Echo of the heart showednormal systolic function with EF of 55 to 60%, LA is mildly dilated, there is mild mitral regurgitation, grade 1 diastolic dysfunction, mild aortic regurgitation and mild pulmonary vascular regurgitation Awaiting cardiology evaluation Atrial fibrillation s/p ablation (2021) Not on AC or beta trista Continues to have bradycardia with symptoms at times Hypertension Continue losartan His blood pressure is controlled CAD s/p stent (2019) Continue baby aspirin and statin Denies any cardiac symptoms LEIGH on CPAP Continue CPAP HS BPH Continue finasteride and silodosin History of GI bleeding Continue famotidine Glaucoma Continue eye drops DVT Prophylaxis: SQ lovenox Code Status: FULL CODE - As per discussion at bedside with the patient. PCP: Helena Ulrich Disposition: admit to PCU Admission and Anticipated Discharge Date Admission Date: December 09, 2024 Subjective 12/10/2024 The patient was seen and examined in telemetry unit He has been having bradycardia with occasional symptoms of feeling unwell for some time Denies any significant symptoms since admission His heart rate went down to upper 30s during the night Review of Systems Review of Systems: All systems reviewed and unremarkable except as noted below Physical Exam Physical Exam: Lying in bed without any acute distress Constitutional: well developed, well nourished and average body habitus; not ill appearing Eyes: PERRL, conjunctivae normal, anicteric sclerae ENMT: external ear and nose normal, oropharynx normal Neck: trachea midline, no thyromegaly Respiratory: no respiratory distress Auscultation: lungs clear to auscultation bilaterally Cardiovascular: Rate/Rhythm: regular rate, regular rhythm and + bradycardic Heart Sounds: normal S1 and normal S2; no murmur Extremities: no edema Gastrointestinal (Abdomen): Inspection/Auscultation: normal bowel sounds; abdomen not distended Percussion/Palpation: abdomen soft; abdomen nontender Musculoskeletal: No acute arthritis involving any of the joint Neurologic: normal touch/pain/proprioception and moves all extremities; no focal motor deficits Psychiatric: A+Ox3, euthymic affect Lymphatic: no cervical or axillary lymphadenopathy Results & Data Results & Data Vital Signs (Past 12 Hours) Vital Signs Temp Pulse Resp BP Pulse Ox O2 Del Method 12/10/24 11:36 36.8 C 52 L 18 139/67 95 Room Air 12/10/24 07:49 36.8 C 53 L 18 153/67 H 95 Room Air 12/10/24 03:19 36.6 C 52 L 18 113/66 98 Room Air 12/10/24 01:42 40 L Laboratory Results Short CBC 12/10/24 Range/Units 07:43 WBC 5.13 (4.8-10.8) K/ul Hgb 12.6 L (14.0-18.0) g/dl Hct 35.8 L (42.0-52.0) % Plt Count 151 (130-400) K/uL [facility] 12/10/24 07:43 Sodium 142 Potassium 3.9 Chloride 107 Carbon Dioxide 29 BUN 19 Creatinine 0.79 Glucose 112 H Calcium 8.9 Diagnostic Medications Administered Current Inpatient Medications Acetaminophen (Acetaminophen 325 Mg Tab) 650 mg PO Q4H PRN PRN Reason: Pain or Fever Stop: 01/08/25 16:55 Al Hydrox/Mg Hydrox/Simethicone (Aluminum/Magnesium Susp 30 Ml Udc) 15 ml PO Q4H PRN PRN Reason: Dyspepsia Stop: 01/08/25 16:55 Aspirin (Aspirin 81 Mg Ectab) 81 mg PO DAILY [facility] Stop: 01/09/25 08:59 Last Admin: 12/10/24 08:07 Dose: 81 mg Atorvastatin Calcium (Atorvastatin 40 Mg Tab) 40 mg PO DAILY [facility] Stop: 01/09/25 08:59 Last Admin: 12/10/24 08:07 Dose: 40 mg Dorzolamide HCl (Dorzolamide Hcl 2% Oph Soln 10 Ml Btl) 1 drops OPR BID [facility] Stop: 01/08/25 20:59 Last Admin: 12/10/24 08:06 Dose: 1 drops Enoxaparin Sodium (Enoxaparin Inj 40 Mg/0.4 Ml Syr) 40 mg SQ DAILY [facility] Stop: 01/09/25 08:59 Last Admin: 12/10/24 08:07 Dose: 40 mg Famotidine (Famotidine 20 Mg Tab) 20 mg PO BID [facility] Stop: 01/08/25 20:59 Last Admin: 12/10/24 08:12 Dose: 20 mg Finasteride (Finasteride 5 Mg Tab) 5 mg PO DAILY [facility] Stop: 01/09/25 08:59 Last Admin: 12/10/24 08:07 Dose: 5 mg Latanoprost (Latanoprost 0.005% Op Soln 2.5 Ml Btl) 1 drops OPL HS [facility] Stop: 01/08/25 20:59 Last Admin: 12/09/24 20:38 Dose: 1 drops Losartan Potassium (Losartan Potassium 25 Mg Tab) 25 mg PO DAILY [facility] Stop: 01/09/25 08:59 Last Admin: 12/10/24 08:07 Dose: 25 mg Miscellaneous (Order Awaiting Action) 1 each N/A QS [facility] Stop: 01/09/25 00:00 Last Admin: 12/10/24 08:08 Dose: Not Given Multivitamins (Multivitamin Tab) 1 tab PO QPM [facility] Stop: 01/09/25 20:59 Ondansetron HCl (Ondansetron Inj 2 Mg/Ml 2 Ml Vial) 4 mg IV Q6H PRN PRN Reason: Nausea Stop: 01/08/25 16:55 Polyethylene Glycol (Polyethylene (Miralax) 17 Gm Pack) 17 gm PO DAILY PRN PRN Reason: Constipation Stop: 01/08/25 16:55 Senna/Docusate Sodium (Docusate Sodium/Senna 50/8.6mg Tab) 1 tab PO HS [facility] Stop: 01/08/25 20:59 Last Admin: 12/09/24 20:37 Dose: 1 tab
--- NOTE | 2024-12-10 13:37 | Cardiology Consultation ---
Date of Consultation December 10, 2024 Assessment & Plan (1) Bradycardia: (2) Frequent PVCs: Plan 84 year old male with past medical history of bradycardia, paroxysmal atrial fibrillation s/p PVI ablation 2021, CAD s/p PCI of LAD in 2019, HTN, dyslipidemia, who presents to the ED due to bradycardia, head tingling, diaphoresis. EKG shows sinus bradycardia with PVCs, 56 bpm. - known history of bradycardia, mild symptoms on presentation, now resolved - telemetry with sinus bradycardia, PVCs, no high degree heart block or pauses - avoid AV danna blockers - euvolemic on exam - electrolytes normal, TSH normal - discussed possible need for pacemaker, briefly discussed risks and benefits of pacemaker, he would be interested in discussing further if felt pacemaker is needed, discussed inpatient procedure vs outpatient EP referral - continue to monitor on telemetry - continue aspirin, atorvastatin, losartan Case discussed with attending physician, further recommendations per Dr. Klein. I spent a total of 40 minutes on the date of service in preparation, delivery, and documentation of the care provided to this patient excluding any time spent in the performance of separately billed services. This visit was a split-shared visit with the substantial portion of the decision making performed by the supervising materials clerk/billing provider. Megha Strauss PA-C [facility] Cardiology Supervising Physician Co-Signing Physician Notes Patient seen and examined. Past medical history, surgical history, social history and family history have been reviewed. The medical record and all the above studies have been reviewed. Case DW LALITHA including management. Interpretation Summary Left ventricular systolic function is normal. Left Ventricular Ejection Fraction = 55-60%. The left atrium is mildly dilated. There is mild mitral regurgitation. Grade I diastolic dysfunction, (abnormal relaxation pattern). Mild aortic regurgitation. Mild pulmonic valvular regurgitation. Bradycardia - ?symptomatic PAF s/p PVI ablation HTN CAD S/P PCI HLD LEIGH - uses CPAP at home possible PPM DW patient and at bedside correct and f/u electrolytes no rate slowing meds adjust anti-HTN meds keeping systolic BP between 100-140 mmHg continue tele monitoring avoid hypovolemia keep patient euvolemic DVT prophylaxis salt restriction counseling History of Present Illness Reason for Consultation: Bradycardia Requesting Physician: Hospitalist Attending Physician: Juliana Langston MD History of Present Illness 84 year old male with past medical history of bradycardia, paroxysmal atrial fibrillation s/p PVI ablation 2021, CAD s/p PCI of LAD in 2019, HTN, dyslipidemia, who presents to the ED due to bradycardia. States yesterday he was at home, walked on the treadmill, took a shower, and sat down. Had tingling in forehead, was diaphoretic. Grant his pulse was irregular, put on pulse oximeter and heart rate was in 30s and skipping around. Was worried about his heart rate so went to ED. Per ED, initial vitals with BP 173/68, HR 33. EKG with sinus bradycardia with PVCs. Admitted for heart rate monitoring. On exam today, patient is resting comfortably in bed. States he is overall feeling well from cardiac standpoint. Denies chest pain, palpitations, shortness of breath, lightheadedness. History of presyncope, syncope, although has not had any episodes recently. Has learned to squat when picking something up rather than bending over. No lightheadedness or dizziness when walking on treadmill daily. He has discussed pacemaker in past, but was told he did not need it, thinks he may be interested now. Compliant with all medications at home, not on any AV danna blockers. Denies tobacco, alcohol, illicit drug use. Follows with outpatient cardiology clinic at . Allergies Allergy/AdvReac Type Severity Reaction Status Date / Time Penicillins Allergy Mild RASH Verified 10/18/22 00:22 adhesive Allergy Unknown Rash Verified 10/18/22 00:22 wool Allergy Rash Verified 10/18/22 00:22 Home Medications Medication Instructions Recorded Confirmed Type aspirin 81 mg tablet,delayed 81 mg PO DAILY 04/10/19 12/09/24 History release finasteride 5 mg tablet 5 mg PO DAILY 04/10/19 12/09/24 History atorvastatin 40 mg tablet 40 mg PO DAILY 04/15/19 12/09/24 History netarsudil 0.02 %-latanoprost 1 drp OPR HS 11/04/19 12/09/24 History 0.005 % eye drops (Rocklatan) multivitamin 1 tab PO HS 02/28/21 12/09/24 History tadalafil 5 mg tablet 20 mg PO HS PRN Erectile 02/28/21 12/09/24 History Dysfunction dorzolamide 2 % eye drops 1 drp OPR BID 10/18/22 12/09/24 History famotidine 20 mg tablet 20 mg PO BID 10/18/22 12/09/24 History latanoprost 0.005 % eye drops 1 drp OPL HS 10/18/22 12/09/24 History losartan 25 mg tablet 25 mg PO DAILY 12/09/24 12/09/24 History sennosides 8.6 mg-docusate sodium 1 tab PO HS 12/09/24 12/09/24 History 50 mg tablet (Senna Plus) Patient History Medical History PAF (paroxysmal atrial fibrillation) Weakness Glaucoma HTN (hypertension) BPH (benign prostatic hyperplasia) CAD (coronary artery disease) ABIODUN x 1 to LAD on 04/10/19 Orthostatic hypotension Hypokalemia Sarcoma of right thigh Diverticulitis History of cancer hamstring RADIATION/SURGERY History of bradycardia Surgical History History of colonoscopy 5+ years History of cardiac cath mar 2019 [facility] with stent- bare metal stent dr. 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 PULMONARY: No cough, sputum, or hemoptysis, No wheezing, No shortness of breath and No recent change in breathing. CARDIOVASCULAR: No chest pain, No dyspnea on exertion, No edema, No palpitations and No syncope. GASTROINTESTINAL: No abdominal pain, No change in bowel habits, No significant heartburn, No nausea, No vomiting, No diarrhea, No constipation, No blood in stools or black tarry stools. No dysphagia. HEMATOLOGIC: No abnormal bleeding and No bruising. NEUROLOGICAL: Normal balance, No headaches and No weakness. Physical Exam Physical Exam: General: No acute distress. A+Ox3. HEENT: Normocephalic. Atraumatic. PERRL. EOMI. Conjunctiva and sclera clear. NECK: No carotid bruits. No JVD. Carotid upstrokes are brisk. Heart: Bradycardic, irregular rhythm. S1 and S2 noted. No murmur. No rubs or gallops. PMI non displaced. Lungs: Clear to auscultation. No wheezes. No rhonchi. No rales. Abdomen: Normal bowel sounds. Soft. Nontender. No masses or organomegaly. No abdominal bruits. Extremities: No edema. No clubbing or cyanosis. Pulses: radial=2/4, posterior tibial=2/4, dorsalis pedis = 2/4. NEURO: No focal deficits. PSYCH: Appropriate affect and insight. Results & Data Vital Signs (Past 12 Hours) Vital Signs Temp Pulse Resp BP Pulse Ox O2 Del Method 12/10/24 11:36 36.8 C 52 L 18 139/67 95 Room Air 12/10/24 07:49 36.8 C 53 L 18 153/67 H 95 Room Air 12/10/24 03:19 36.6 C 52 L 18 113/66 98 Room Air 12/10/24 01:42 40 L Laboratory Results CBC 12/10/24 Range/Units 07:43 WBC 5.13 (4.8-10.8) K/ul RBC 3.86 L (4.70-6.10) M/uL Hgb 12.6 L (14.0-18.0) g/dl Hct 35.8 L (42.0-52.0) % Plt Count 151 (130-400) K/uL Comprehensive Metabolic Panel 12/10/24 Range/Units 07:43 Sodium 142 (136-145) mmol/L Potassium 3.9 (3.5-5.1) mmol/L Chloride 107 (98-107) mmol/L Carbon Dioxide 29 (21-32) mmol/L BUN 19 (6-23) mg/dl Creatinine 0.79 (0.6-1.4) mg/dl Glucose 112 H (70-99(Fasting)) mg/dl Calcium 8.9 (8.6-10.3) mg/dl Intake and Output 12/09/24 12/10/24 12/10/24 22:59 06:59 14:59 Intake Total 300 / 600 300 / 600 Balance 300 / 600 300 / 600 Intake: Oral 300 / 600 300 / 600 Other: # Unmeasured Voids 1 2 1 Weight 80.4 kg 81 kg Weight Measurement Method [facility] Findings Telemetry with sinus bradycardia in 50s Echo 12/10/24, LVEF 55-60%, mild MR, mild AR, Grade I diastolic dysfunction PG Care Time/CCT Total # of Minutes Spent Total Time Spent with Patient: Total time spent is greater than 50% in coordination of care (as documented) at patient's floor/unit and/or counseling patient: [place] [address] IN/OBS CONSULT LVL 5,80M Patient Type New Medical Decision Making High Complexity Diagnoses Bradycardia R00.1 Frequent PVCs I49.3
[2024-12-10] MEDS: DOCUSATE SODIUM/SENNA 50/8.6MG TAB PO STA (21:10)
--- NOTE | 2024-12-11 07:05 | Electrocardiogram Report ---
Test Reason : Blood Pressure : */* mmHG Vent. Rate : 56 BPM Atrial Rate : 56 BPM P-R Int : 182 ms QRS Dur : 102 ms QT Int : 424 ms P-R-T Axes : 39 43 17 degrees QTcB Int : 409 ms Sinus bradycardia with frequent Premature ventricular complexes Otherwise normal ECG When compared with ECG of 27-Jul-2024 11:42, Premature ventricular complexes are now Present Confirmed by Nolan Vazquez ([id number]) on 12/11/2024 7:05:35 AM Referred By: Confirmed By: Nolan Vazquez
[2024-12-11 07:28] LABS: Hematocrit (blood only) 35.8 % (42.0-52.0); Hemoglobin 12.5 g/dl (14.0-18.0); Immature Granulocytes # (auto) 0.02 K/uL (0.01-0.20); Immature Granulocytes % (auto) 0.4 %; Mean Corpuscular Hemoglobin 32.7 pg (25.0-34.0); Mean Corpuscular Volume 93.7 fL (80.0-100.0); Platelet Count 142 K/uL (130-400); RDW Standard Deviation 44.5 fL (36.4-46.3); Red Blood Count 3.82 M/uL (4.70-6.10); White Blood Count 5.08 K/ul (4.8-10.8)
[2024-12-11 07:48] LABS: Anion Gap 6.0 (3-11); Blood Urea Nitrogen 23.0 mg/dl (6-23); Calcium 8.8 mg/dl (8.6-10.3); Carbon Dioxide 28.0 mmol/L (21-32); Chloride 108.0 mmol/L (98-107); Creatinine Clr Calc Pharmacy 75.1 ml/min; Glucose 109.0 mg/dl (70-99(Fasting)); Magnesium 1.9 mg/dl (1.7-2.4); Potassium 3.5 mmol/L (3.5-5.1); Sodium 142.0 mmol/L (136-145)
--- NOTE | 2024-12-11 13:00 | Hospitalist Progress Note ---
Date of Service December 11, 2024 Assessment & Plan (1) Symptomatic bradycardia: (2) PAF (paroxysmal atrial fibrillation): (3) CAD (coronary artery disease): (4) BPH (benign prostatic hyperplasia): Plan 84 year old male with PMH significant for atrial fibrillation s/p ablation (2021), hypertension, CAD s/p stent (2019), IBS, diverticulosis, LEIGH on CPAP, BPH and glaucoma who presents to the ED on 12/09/2024 with bradycardia. Symptomatic bradycardia Patient presenting with diaphoresis and HR in the 30s EKG revealed sinus bradycardia with frequent PVCs at 56bpm Telemetry revealed HR as low as 33 Med list reviewed without any that would cause bradycardia Obtain updated echo - last echo in 2022 revealed mild concentric LVH, normal LV wall motion, LVEF 60-65%, no significant valvular disease, mild aortic root dilation Clinically stable without any more symptoms and the heart rate went down to 30s during night Electrolytes unremarkable and TSH normal Echo of the heart showednormal systolic function with EF of 55 to 60%, LA is mildly dilated, there is mild mitral regurgitation, grade 1 diastolic dysfunction, mild aortic regurgitation and mild pulmonary vascular regurgitation Appreciate cardiology input and recommendation for possible pacemaker tomorrow Patient remains free from any symptoms and did not have any significant bradycardia as before Atrial fibrillation s/p ablation (2021) Not on AC or beta trista Continues to have bradycardia with symptoms at times Hypertension Continue losartan His blood pressure is controlled CAD s/p stent (2019) Continue baby aspirin and statin Denies any cardiac symptoms LEIGH on CPAP Continue CPAP HS BPH Continue finasteride and silodosin History of GI bleeding Continue famotidine Glaucoma Continue eye drops DVT Prophylaxis: SQ lovenox Code Status: FULL CODE - As per discussion at bedside with the patient. PCP: Helena Ulrich Disposition: admit to PCU Patient discussed with the family members Admission and Anticipated Discharge Date Admission Date: December 09, 2024 Subjective 12/10/2024 The patient was seen and examined in telemetry unit He has been having bradycardia with occasional symptoms of feeling unwell for some time Denies any significant symptoms since admission His heart rate went down to upper 30s during the night 12/11/2024 The patient was seen and examined in telemetry unit He has been stable without any significant symptoms Heart rate remains on the lower side and it goes as low as upper 40s Likely to have permanent pacemaker tomorrow Review of Systems Review of Systems: All systems reviewed and unremarkable except as noted below Physical Exam Physical Exam: Lying in bed without any acute distress Constitutional: well developed, well nourished and average body habitus; not ill appearing Eyes: PERRL, conjunctivae normal, anicteric sclerae ENMT: external ear and nose normal, oropharynx normal Neck: trachea midline, no thyromegaly Respiratory: no respiratory distress Auscultation: lungs clear to auscultation bilaterally Cardiovascular: Rate/Rhythm: regular rate, regular rhythm and + bradycardic Heart Sounds: normal S1 and normal S2; no murmur Extremities: no edema Gastrointestinal (Abdomen): Inspection/Auscultation: normal bowel sounds; abdomen not distended Percussion/Palpation: abdomen soft; abdomen nontender Neurologic: normal touch/pain/proprioception and moves all extremities; no focal motor deficits Psychiatric: A+Ox3, euthymic affect Lymphatic: no cervical or axillary lymphadenopathy Results & Data Results & Data Vital Signs (Past 12 Hours) Vital Signs Temp Pulse Pulse Resp BP BP Pulse Ox 12/11/24 11:44 36.7 C 58 L 18 146/81 H 94 12/11/24 07:52 56 L 18 157/78 H 94 12/11/24 03:50 36.8 C 49 L 16 132/72 94 12/11/24 03:15 54 L O2 Del Method 12/11/24 11:44 Room Air 12/11/24 07:52 Room Air 12/11/24 03:50 Room Air 12/11/24 03:15 Laboratory Results Short CBC 12/11/24 Range/Units 07:01 WBC 5.08 (4.8-10.8) K/ul Hgb 12.5 L (14.0-18.0) g/dl Hct 35.8 L (42.0-52.0) % Plt Count 142 (130-400) K/uL BMP 12/11/24 07:01 Sodium 142 Potassium 3.5 Chloride 108 H Carbon Dioxide 28 BUN 23 Creatinine 0.77 Glucose 109 H Calcium 8.8 Medications Administered Current Inpatient Medications Acetaminophen (Acetaminophen 325 Mg Tab) 650 mg PO Q4H PRN PRN Reason: Pain or Fever Stop: 01/08/25 16:55 Al Hydrox/Mg Hydrox/Simethicone (Aluminum/Magnesium Susp 30 Ml Udc) 15 ml PO Q4H PRN PRN Reason: Dyspepsia Stop: 01/08/25 16:55 Aspirin (Aspirin 81 Mg Ectab) 81 mg PO DAILY SUNITA Stop: 01/09/25 08:59 Last Admin: 12/11/24 08:01 Dose: 81 mg Atorvastatin Calcium (Atorvastatin 40 Mg Tab) 40 mg PO DAILY SUNITA Stop: 01/09/25 08:59 Last Admin: 12/11/24 08:01 Dose: 40 mg Dorzolamide HCl (Dorzolamide Hcl 2% Oph Soln 10 Ml Btl) 1 drops OPR BID SUNITA Stop: 01/08/25 20:59 Last Admin: 12/11/24 07:49 Dose: 1 drops Enoxaparin Sodium (Enoxaparin Inj 40 Mg/0.4 Ml Syr) 40 mg SQ DAILY SUNITA Stop: 01/09/25 08:59 Last Admin: 12/11/24 08:01 Dose: 40 mg Famotidine (Famotidine 20 Mg Tab) 20 mg PO BID SUNITA Stop: 01/08/25 20:59 Last Admin: 12/11/24 08:08 Dose: 20 mg Finasteride (Finasteride 5 Mg Tab) 5 mg PO DAILY SUNITA Stop: 01/09/25 08:59 Last Admin: 12/11/24 08:03 Dose: 5 mg Latanoprost (Latanoprost 0.005% Op Soln 2.5 Ml Btl) 1 drops OPL HS SUNITA Stop: 01/08/25 20:59 Last Admin: 12/10/24 21:10 Dose: 1 drops Losartan Potassium (Losartan Potassium 25 Mg Tab) 25 mg PO DAILY SUNITA Stop: 01/09/25 08:59 Last Admin: 12/11/24 08:01 Dose: 25 mg Miscellaneous (Order Awaiting Action) 1 each N/A QS SUNITA Stop: 01/09/25 00:00 Last Admin: 12/11/24 07:48 Dose: Not Given Multivitamins (Multivitamin Tab) 1 tab PO QPM SUNITA Stop: 01/09/25 20:59 Last Admin: 12/10/24 21:26 Dose: 1 tab Ondansetron HCl (Ondansetron Inj 2 Mg/Ml 2 Ml Vial) 4 mg IV Q6H PRN PRN Reason: Nausea Stop: 01/08/25 16:55 Polyethylene Glycol (Polyethylene (Miralax) 17 Gm Pack) 17 gm PO DAILY PRN PRN Reason: Constipation Stop: 01/08/25 16:55 Senna/Docusate Sodium (Docusate Sodium/Senna 50/8.6mg Tab) 1 tab PO HS SUNITA Stop: 01/08/25 20:59 Last Admin: 12/10/24 21:10 Dose: 1 tab
--- NOTE | 2024-12-11 17:46 | Cardiology Progress Note ---
Date of Service December 11, 2024 Assessment & Plan (1) Bradycardia: (2) Frequent PVCs: Plan 84 year old male with past medical history of bradycardia, paroxysmal atrial fibrillation s/p PVI ablation 2021, CAD s/p PCI of LAD in 2019, HTN, dyslipidemia, who presents to the ED due to bradycardia, head tingling, diaphoresis. EKG shows sinus bradycardia with PVCs, 56 bpm. Bradycardia - ?symptomatic PAF s/p PVI ablation HTN CAD S/P PCI HLD LEIGH - uses CPAP at home telemetry with sinus bradycardia, PVCs, no high degree heart block or pauses possible PPM DW patient EP eval no rate slowing meds continue aspirin, atorvastatin, losartan adjust anti-HTN meds keeping systolic BP between 100-140 mmHg continue tele monitoring avoid hypovolemia keep patient euvolemic DVT prophylaxis salt restriction counseling Admission and Anticipated Discharge Date Admission Date: December 09, 2024 Subjective Patient on exam is lying in bed in NAD; no c/o cp, sob, palpitations, dizziness, LOC tele - showed HR intermittently in the 30s from about 1130pm to 730am patient has been asymptomatic Review of Systems Review of Systems: CONSTITUTIONAL: No change in weight, No weakness, No fatigue and No fevers, No sweats or chills. PULMONARY: No cough, sputum, or hemoptysis, No wheezing, No shortness of breath and No recent change in breathing. CARDIOVASCULAR: No chest pain, No dyspnea on exertion, No edema, No palpitations and No syncope. GASTROINTESTINAL: No abdominal pain, No change in bowel habits, No significant heartburn, No nausea, No vomiting, No diarrhea, No constipation, No blood in stools or black tarry stools. No dysphagia. HEMATOLOGIC: No abnormal bleeding and No bruising. NEUROLOGICAL: Normal balance, No headaches and No weakness. Physical Exam Physical Exam: General: No acute distress. A+Ox3. HEENT: Normocephalic. Atraumatic. PERRL. EOMI. Conjunctiva and sclera clear. NECK: No carotid bruits. No JVD. Carotid upstrokes are brisk. Heart: Bradycardic,S1 and S2 noted. No murmur. No rubs or gallops. PMI non displaced. Lungs: Clear to auscultation. No wheezes. No rhonchi. No rales. Abdomen: Normal bowel sounds. Soft. Nontender. No masses or organomegaly. No abdominal bruits. Extremities: No edema. No clubbing or cyanosis. NEURO: No focal deficits. PSYCH: Appropriate affect and insight. Results & Data Vital Signs (Past 12 Hours) Vital Signs Vital Signs Temp 37.0 C 12/11/24 16:31 Pulse 51 L 12/11/24 16:31 Resp 18 12/11/24 16:31 BP 149/73 H 12/11/24 16:31 Pulse Ox 95 12/11/24 16:31 O2 Del Method Room Air 12/11/24 16:31 Intake & Output 12/10/24 12/11/24 12/11/24 18:59 06:59 18:59 Intake Total 790 / 790 720 / 720 Balance 790 / 790 720 / 720 Weight 81.5 kg Intake: Oral 790 / 790 720 / 720 Other: # Unmeasured Voids 2 2 Weight Measurement Method Built in [facility] Temp Pulse Resp BP Pulse Ox O2 Del Method 12/11/24 16:31 37.0 C 51 L 18 149/73 H 95 Room Air 12/11/24 11:44 36.7 C 58 L 18 146/81 H 94 Room Air 12/11/24 07:52 56 L 18 157/78 H 94 Room Air Laboratory Results Laboratory Results - last 48 hr 12/10/24 12/11/24 07:43 07:01 WBC 5.13 5.08 RBC 3.86 L 3.82 L Hgb 12.6 L 12.5 L Hct 35.8 L 35.8 L MCV 92.7 93.7 MCH 32.6 32.7 MCHC 35.2 34.9 RDW Std Deviation 44.2 44.5 RDW Coeff of Jak 13.2 13.2 Plt Count 151 142 MPV 9.5 9.6 Immature Gran % (Auto) 0.4 Neut % (Auto) 63.3 Lymph % (Auto) 26.0 Hawkins % (Auto) 7.9 Eos % (Auto) 1.6 Baso % (Auto) 0.8 Neut # (Auto) 3.22 Lymph # (Auto) 1.32 Hawkins # (Auto) 0.40 Eos # (Auto) 0.08 Baso # (Auto) 0.04 Immature Gran # (Auto) 0.02 Sodium 142 142 Potassium 3.9 3.5 Chloride 107 108 H Carbon Dioxide 29 28 Anion Gap 6 6 BUN 19 23 Creatinine 0.79 0.77 Est Cr Clr Drug Dosing 73.2 75.1 eGFR 88.15 88.83 BUN/Creatinine Ratio 24.1 H 29.9 H Glucose 112 H 109 H Calcium 8.9 8.8 Phosphorus 3.8 Magnesium 1.9 1.9 Laboratory Results WBC 5.08 K/ul (4.8-10.8) 12/11/24 07:01 RBC 3.82 M/uL (4.70-6.10) L 12/11/24 07:01 Hgb 12.5 g/dl (14.0-18.0) L 12/11/24 07:01 Hct 35.8 % (42.0-52.0) L 12/11/24 07:01 MCV 93.7 fL (80.0-100.0) 12/11/24 07:01 MCH 32.7 pg (25.0-34.0) 12/11/24 07:01 MCHC 34.9 g/dL (32.0-36.0) 12/11/24 07:01 RDW Std Deviation 44.5 fL (36.4-46.3) 12/11/24 07:01 RDW Coeff of Jak 13.2 % (11.5-14.5) 12/11/24 07:01 Plt Count 142 K/uL (130-400) 12/11/24 07:01 MPV 9.6 fL (9.4-12.4) 12/11/24 07:01 Immature Gran % (Auto) 0.4 % 12/11/24 07:01 Neut % (Auto) 63.3 % 12/11/24 07:01 Lymph % (Auto) 26.0 % 12/11/24 07:01 Hawkins % (Auto) 7.9 % 12/11/24 07:01 Eos % (Auto) 1.6 % 12/11/24 07:01 Baso % (Auto) 0.8 % 12/11/24 07:01 Neut # (Auto) 3.22 K/uL (1.40-6.50) 12/11/24 07:01 Lymph # (Auto) 1.32 K/uL (1.20-3.40) 12/11/24 07:01 Hawkins # (Auto) 0.40 K/uL (0.11-0.59) 12/11/24 07:01 Eos # (Auto) 0.08 K/uL (0.00-0.50) 12/11/24 07:01 Baso # (Auto) 0.04 K/uL (0.00-0.20) 12/11/24 07:01 Immature Gran # (Auto) 0.02 K/uL (0.01-0.20) 12/11/24 07:01 PT 10.9 Seconds (9.0-12.0) 12/09/24 11:54 INR 1.0 (0.9-1.1) 12/09/24 11:54 APTT 26 Seconds (21-31) 12/09/24 11:54 PTT Ratio 1.0 12/09/24 11:54 Sodium 142 mmol/L (136-145) 12/11/24 07:01 Potassium 3.5 mmol/L (3.5-5.1) 12/11/24 07:01 Chloride 108 mmol/L (98-107) H 12/11/24 07:01 Carbon Dioxide 28 mmol/L (21-32) 12/11/24 07:01 Anion Gap 6 (3-11) 12/11/24 07:01 BUN 23 mg/dl (6-23) 12/11/24 07:01 Creatinine 0.77 mg/dl (0.6-1.4) 12/11/24 07:01 Est Cr Clr Drug Dosing 75.1 ml/min 12/11/24 07:01 eGFR 88.83 12/11/24 07:01 BUN/Creatinine Ratio 29.9 (10-20) H 12/11/24 07:01 Glucose 109 mg/dl (70-99(Fasting)) H 12/11/24 07:01 Calcium 8.8 mg/dl (8.6-10.3) 12/11/24 07:01 Phosphorus 3.8 mg/dl (2.5-4.9) 12/10/24 07:43 Magnesium 1.9 mg/dl (1.7-2.4) 12/11/24 07:01 Total Bilirubin 1.8 mg/dl (0.2-1.0) H 12/09/24 11:54 AST 19 U/L (13-39) 12/09/24 11:54 ALT 20 U/L (7-52) 12/09/24 11:54 Alkaline Phosphatase 68 U/L (34-104) 12/09/24 11:54 Troponin I High Sens 8.1 pg/ml (0-20) 12/09/24 11:54 Total Protein 7.2 gm/dl (6.0-8.3) 12/09/24 11:54 Albumin 4.4 gm/dl (3.4-5.0) 12/09/24 11:54 Globulin 2.8 gm/dl (2.5-4.0) 12/09/24 11:54 Albumin/Globulin Ratio 1.6 (0.9-2) 12/09/24 11:54 TSH 2.631 uIu/ml (0.300-4.500) 12/09/24 11:54 Impressions Chest X-Ray 12/09/24 11:39 XR chest 1V not portable CLINICAL HISTORY: Chest pain, nonspecific COMPARISON STUDY: 09/08/2024 FINDINGS: Heart size and pulmonary vasculature are normal. No consolidation or pleural effusion. No pneumothorax. IMPRESSION: No acute findings. ACT 112: Negative or not required by law. Electronically signed by: Talib Elkins M.D. 12/09/2024 12:31 PM Diagnostic Findings CBC 12/11/24 Range/Units 07:01 WBC 5.08 (4.8-10.8) K/ul RBC 3.82 L (4.70-6.10) M/uL Hgb 12.5 L (14.0-18.0) g/dl Hct 35.8 L (42.0-52.0) % Plt Count 142 (130-400) K/uL Neut # (Auto) 3.22 (1.40-6.50) K/uL Lymph # (Auto) 1.32 (1.20-3.40) K/uL Hawkins # (Auto) 0.40 (0.11-0.59) K/uL Eos # (Auto) 0.08 (0.00-0.50) K/uL Baso # (Auto) 0.04 (0.00-0.20) K/uL Comprehensive Metabolic Panel 12/11/24 Range/Units 07:01 Sodium 142 (136-145) mmol/L Potassium 3.5 (3.5-5.1) mmol/L Chloride 108 H (98-107) mmol/L Carbon Dioxide 28 (21-32) mmol/L BUN 23 (6-23) mg/dl Creatinine 0.77 (0.6-1.4) mg/dl Glucose 109 H (70-99(Fasting)) mg/dl Calcium 8.8 (8.6-10.3) mg/dl Intake and Output 12/11/24 12/11/24 12/11/24 06:59 14:59 22:59 Intake Total 720 / 720 Balance 720 / 720 Intake: Oral 720 / 720 Other: # Unmeasured Voids 2 Weight 81.5 kg Weight Measurement Method Built in [facility] ECHO Interpretation Summary Left ventricular systolic function is normal. Left Ventricular Ejection Fraction = 55-60%. The left atrium is mildly dilated. There is mild mitral regurgitation. Grade I diastolic dysfunction, (abnormal relaxation pattern). Mild aortic regurgitation. Mild pulmonic valvular regurgitation. Medications Administered Home Medications Medication Instructions Recorded Confirmed Last Taken aspirin 81 mg tablet,delayed 81 mg PO DAILY 04/10/19 12/09/24 12/09/24 release finasteride 5 mg tablet 5 mg PO DAILY 04/10/19 12/09/24 12/09/24 atorvastatin 40 mg tablet 40 mg PO DAILY 04/15/19 12/09/24 12/09/24 netarsudil 0.02 %-latanoprost 1 drp OPR HS 11/04/19 12/09/24 12/08/24 0.005 % [facility] multivitamin 1 tab PO HS 02/28/21 12/09/24 12/08/24 tadalafil 5 mg tablet 20 mg PO HS PRN Erectile 02/28/21 12/09/24 Unknown Dysfunction dorzolamide 2 % eye drops 1 drp OPR BID 10/18/22 12/09/24 12/09/24 famotidine 20 mg tablet 20 mg PO BID 10/18/22 12/09/24 12/09/24 latanoprost 0.005 % eye drops 1 drp OPL HS 10/18/22 12/09/24 12/08/24 losartan 25 mg tablet 25 mg PO DAILY 12/09/24 12/09/24 12/09/24 sennosides 8.6 mg-docusate sodium 1 tab PO HS 12/09/24 12/09/24 12/08/24 50 mg tablet (Senna Plus) Active Medications Generic Name Dose Route Start Last Admin Trade Name Srikanth PRN Reason Stop Dose Admin Aspirin 81 mg 12/10/24 09:00 12/11/24 08:01 Aspirin 81 Mg Ectab PO 01/09/25 08:59 81 mg DAILY SUNITA Administration Atorvastatin Calcium 40 mg 12/10/24 09:00 12/11/24 08:01 Atorvastatin 40 Mg Tab PO 01/09/25 08:59 40 mg DAILY SUNITA Administration Dorzolamide HCl 1 drops 12/09/24 21:00 12/11/24 07:49 Dorzolamide Hcl 2% Oph Soln 10 Ml Btl OPR 01/08/25 20:59 1 drops BID SUNITA Administration Enoxaparin Sodium 40 mg 12/10/24 09:00 12/11/24 08:01 Enoxaparin Inj 40 Mg/0.4 Ml Syr SQ 01/09/25 08:59 40 mg DAILY SUNITA Administration Famotidine 20 mg 12/09/24 21:00 12/11/24 08:08 Famotidine 20 Mg Tab PO 01/08/25 20:59 20 mg BID SUNITA Administration Finasteride 5 mg 12/10/24 09:00 12/11/24 08:03 Finasteride 5 Mg Tab PO 01/09/25 08:59 5 mg DAILY SUNITA Administration Latanoprost 1 drops 12/09/24 21:00 12/10/24 21:10 Latanoprost 0.005% Op Soln 2.5 Ml Btl OPL 01/08/25 20:59 1 drops HS SUNITA Administration Losartan Potassium 25 mg 12/10/24 09:00 12/11/24 08:01 Losartan Potassium 25 Mg Tab PO 01/09/25 08:59 25 mg DAILY SUNITA Administration Miscellaneous 1 each 12/10/24 00:00 12/11/24 07:48 Order Awaiting Action N/A 01/09/25 00:00 Not Given QS SUNITA Multivitamins 1 tab 12/10/24 21:00 12/10/24 21:26 Multivitamin Tab PO 01/09/25 20:59 1 tab QPM SUNITA Administration Senna/Docusate Sodium 1 tab 12/09/24 21:00 12/10/24 21:10 Docusate Sodium/Senna 50/8.6mg Tab PO 01/08/25 20:59 1 tab HS SUNITA Administration PG Care Time/CCT Total # of Minutes Spent Total Time Spent with Patient: Total time spent is greater than 50% in coordination of care (as documented) at patient's floor/unit and/or counseling patient: Coding Level of Care Code 80657 SUB INP/OBS CARE 3/50MIN Diagnoses Bradycardia R00.1 Frequent PVCs I49.3
[2024-12-12 07:46] LABS: Anion Gap 5.0 (3-11); Blood Urea Nitrogen 26.0 mg/dl (6-23); Calcium 8.7 mg/dl (8.6-10.3); Carbon Dioxide 28.0 mmol/L (21-32); Chloride 109.0 mmol/L (98-107); Creatinine Clr Calc Pharmacy 71.3 ml/min; Glucose 120.0 mg/dl (70-99(Fasting)); Magnesium 1.9 mg/dl (1.7-2.4); Potassium 3.8 mmol/L (3.5-5.1); Sodium 142.0 mmol/L (136-145)
--- NOTE | 2024-12-12 11:11 | Cardiology Progress Note ---
Date of Service December 12, 2024 Assessment & Plan (1) Bradycardia: (2) Frequent PVCs: (3) Symptomatic bradycardia: (4) CAD (coronary artery disease): Plan: Status post PCI left anterior descending 2019 (5) PAF (paroxysmal atrial fibrillation): Plan: Status post pulmonary vein isolation ablation 2021 Plan Patient is an 84-year-old male presents due to symptoms of lightheadedness and scalp tingling with noted sinus bradycardia with frequent ventricular ectopy on presentation and on telemetry. 2 prior episodes of acute syncope with hospitalization in 2022. Symptoms suspicious for symptomatic bradycardia with possible prior syncope. Prior event monitor June 2024 with occasional ventricular ectopy bigeminy trigeminy and 1 run of ventricular tachycardia. Discussed options of management recommend proceeding with dual-chamber pacemaker given prior syncopal events, bradycardia and indications for beta-trista therapy. Will keep n.p.o. after midnight tonight with anticipation of procedure in the morning Lovenox to be held Admission and Anticipated Discharge Date Admission Date: December 11, 2024 Subjective Patient seen and personally examined. No complaints this morning. No dizziness or lightheadedness since hospitalization. No chest pain or shortness of breath with patient ambulatory in room. Review of Systems Review of Systems: All systems reviewed & are unremarkable except as noted in Subjective Physical Exam Constitutional: WD/WN, vitals as above Eyes: PERRL, conjunctivae normal, anicteric sclerae ENMT: external ear and nose normal, oropharynx normal Neck: trachea midline, no thyromegaly Respiratory: normal respiratory effort, lungs clear to auscultation Cardiovascular: Rate/Rhythm: regular rhythm and + tachycardic Vessels: no JVD Extremities: no edema Gastrointestinal (Abdomen): normal bowel sounds, soft, nontender, no hepatosplenomegaly Musculoskeletal: no cyanosis or clubbing, extremities motor strength 5/5 Results & Data Vital Signs (Past 12 Hours) Vital Signs Temp Pulse Resp BP Pulse Ox O2 Del Method 12/12/24 08:15 36.9 C 58 L 18 134/71 93 Room Air 12/12/24 03:10 36.6 C 55 L 18 121/72 97 CPAP Laboratory Results Laboratory Results - last 24 hr 12/12/24 06:43 Sodium 142 Potassium 3.8 Chloride 109 H Carbon Dioxide 28 Anion Gap 5 BUN 26 H Creatinine 0.81 Est Cr Clr Drug Dosing 71.3 eGFR 87.48 BUN/Creatinine Ratio 32.1 H Glucose 120 H Calcium 8.7 Magnesium 1.9 PG Care Time/CCT Total # of Minutes Spent Total Time Spent with Patient: Total time spent is greater than 50% in coordination of care (as documented) at patient's floor/unit and/or counseling patient: Coding Level of Care Code 55730 SUB INP/OBS CARE 3/50MIN Diagnoses Bradycardia R00.1 Frequent PVCs I49.3 Symptomatic bradycardia R00.1 CAD (coronary artery disease) I25.10 PAF (paroxysmal atrial fibrillation) I48.0
--- NOTE | 2024-12-12 11:55 | Hospitalist Progress Note ---
Date of Service December 12, 2024 Assessment & Plan (1) Symptomatic bradycardia: (2) PAF (paroxysmal atrial fibrillation): (3) CAD (coronary artery disease): (4) BPH (benign prostatic hyperplasia): Plan 84 year old male with PMH significant for atrial fibrillation s/p ablation (2021), hypertension, CAD s/p stent (2019), IBS, diverticulosis, LEIGH on CPAP, BPH and glaucoma who presents to the ED on 12/09/2024 with bradycardia. Symptomatic bradycardia Patient presenting with diaphoresis and HR in the 30s EKG revealed sinus bradycardia with frequent PVCs at 56bpm Telemetry revealed HR as low as 33 Med list reviewed without any that would cause bradycardia Obtain updated echo - last echo in 2022 revealed mild concentric LVH, normal LV wall motion, LVEF 60-65%, no significant valvular disease, mild aortic root dilation Clinically stable without any more symptoms and the heart rate went down to 30s during night Electrolytes unremarkable and TSH normal Echo of the heart showednormal systolic function with EF of 55 to 60%, LA is mildly dilated, there is mild mitral regurgitation, grade 1 diastolic dysfunction, mild aortic regurgitation and mild pulmonary vascular regurgitation Appreciate cardiology input and recommendation for possible pacemaker tomorrow Patient remains free from any symptoms and did not have any significant bradycardia as before Remains stable medically and did not have any more significant bradycardia arrhythmia Appreciate cardiology input for possible pacemaker insertion tomorrow Atrial fibrillation s/p ablation (2021) Not on AC or beta trista Continues to have bradycardia with symptoms at times Heart rate remains around 60s without any cardiac symptoms Hypertension Continue losartan His blood pressure is controlled CAD s/p stent (2019) Continue baby aspirin and statin Denies any cardiac symptoms LEIGH on CPAP Continue CPAP HS BPH Continue finasteride and silodosin History of GI bleeding Continue famotidine Glaucoma Continue eye drops DVT Prophylaxis: SQ lovenox Code Status: FULL CODE - As per discussion at bedside with the patient. PCP: Helena Ulrich Disposition: admit to PCU Patient discussed with the family members Admission and Anticipated Discharge Date Admission Date: December 11, 2024 Subjective 12/10/2024 The patient was seen and examined in telemetry unit He has been having bradycardia with occasional symptoms of feeling unwell for some time Denies any significant symptoms since admission His heart rate went down to upper 30s during the night 12/11/2024 The patient was seen and examined in telemetry unit He has been stable without any significant symptoms Heart rate remains on the lower side and it goes as low as upper 40s Likely to have permanent pacemaker tomorrow 12/12/2024 The patient was seen and examined in telemetry unit He did not have any more episode of significant bradycardia arrhythmia No episodes of dizziness and/or presyncope here in the hospital Denies any other significant symptoms but very anxious for his heart condition Review of Systems 2 Review of Systems: All systems reviewed and unremarkable except as noted below Physical Exam Physical Exam: Lying in bed without any acute distress Constitutional: well developed, well nourished and average body habitus; not ill appearing Eyes: PERRL, conjunctivae normal, anicteric sclerae ENMT: external ear and nose normal, oropharynx normal Neck: trachea midline, no thyromegaly Respiratory: no respiratory distress Auscultation: lungs clear to auscultation bilaterally Cardiovascular: Rate/Rhythm: regular rate, regular rhythm and + bradycardic Heart Sounds: normal S1 and normal S2; no murmur Extremities: no edema Gastrointestinal (Abdomen): Inspection/Auscultation: normal bowel sounds; abdomen not distended Percussion/Palpation: abdomen soft; abdomen nontender Neurologic: normal touch/pain/proprioception and moves all extremities; no focal motor deficits Psychiatric: A+Ox3, euthymic affect Lymphatic: no cervical or axillary lymphadenopathy Results & Data Results & Data Vital Signs (Past 12 Hours) Vital Signs Temp Pulse Resp BP BP Pulse Ox O2 Del Method 12/12/24 11:50 36.7 C 61 18 155/89 H 96 Room Air 12/12/24 08:15 36.9 C 58 L 18 134/71 93 Room Air 12/12/24 03:10 36.6 C 55 L 18 121/72 97 CPAP Laboratory Results [facility] 12/12/24 06:43 Sodium 142 Potassium 3.8 Chloride 109 H Carbon Dioxide 28 BUN 26 H Creatinine 0.81 Glucose 120 H Calcium 8.7 Medications Administered Current Inpatient Medications Acetaminophen (Acetaminophen 325 Mg Tab) 650 mg PO Q4H PRN PRN Reason: Pain or Fever Stop: 01/08/25 16:55 Al Hydrox/Mg Hydrox/Simethicone (Aluminum/Magnesium Susp 30 Ml Udc) 15 ml PO Q4H PRN PRN Reason: Dyspepsia Stop: 01/08/25 16:55 Aspirin (Aspirin 81 Mg Ectab) 81 mg PO DAILY [facility] Stop: 01/09/25 08:59 Last Admin: 12/12/24 08:12 Dose: 81 mg Atorvastatin Calcium (Atorvastatin 40 Mg Tab) 40 mg PO DAILY [facility] Stop: 01/09/25 08:59 Last Admin: 12/12/24 08:12 Dose: 40 mg Dorzolamide HCl (Dorzolamide Hcl 2% Oph Soln 10 Ml Btl) 1 drops OPR BID [facility] Stop: 01/08/25 20:59 Last Admin: 12/12/24 08:11 Dose: 1 drops Enoxaparin Sodium (Enoxaparin Inj 40 Mg/0.4 Ml Syr) 40 mg SQ DAILY [facility] Stop: 01/09/25 08:59 Last Admin: 12/12/24 08:12 Dose: 40 mg Famotidine (Famotidine 20 Mg Tab) 20 mg PO BID [facility] Stop: 01/08/25 20:59 Last Admin: 12/12/24 08:15 Dose: 20 mg Finasteride (Finasteride 5 Mg Tab) 5 mg PO DAILY [facility] Stop: 01/09/25 08:59 Last Admin: 12/12/24 08:11 Dose: 5 mg Latanoprost (Latanoprost 0.005% Op Soln 2.5 Ml Btl) 1 drops OPL HS [facility] Stop: 01/08/25 20:59 Last Admin: 12/11/24 21:34 Dose: 1 drops Losartan Potassium (Losartan Potassium 25 Mg Tab) 25 mg PO DAILY [facility] Stop: 01/09/25 08:59 Last Admin: 12/12/24 08:12 Dose: 25 mg Miscellaneous (Order Awaiting Action) 1 each N/A QS [facility] Stop: 01/09/25 00:00 Last Admin: 12/12/24 08:13 Dose: Not Given Multivitamins (Multivitamin Tab) 1 tab PO QPM [facility] Stop: 01/09/25 20:59 Last Admin: 12/11/24 21:34 Dose: 1 tab Ondansetron HCl (Ondansetron Inj 2 Mg/Ml 2 Ml Vial) 4 mg IV Q6H PRN PRN Reason: Nausea Stop: 01/08/25 16:55 Polyethylene Glycol (Polyethylene (Miralax) 17 Gm Pack) 17 gm PO DAILY PRN PRN Reason: Constipation Stop: 01/08/25 16:55 Senna/Docusate Sodium (Docusate Sodium/Senna 50/8.6mg Tab) 1 tab PO HS [facility] Stop: 01/08/25 20:59 Last Admin: 12/11/24 21:33 Dose: 1 tab
--- NOTE | 2024-12-13 08:10 | Pre Anesthesia Assessment ---
Date of Service December 13, 2024 Pre Sedation Assessment Vital Signs Temp Pulse Pulse Pulse Resp BP BP 12/13/24 07:41 50 L 18 151/77 H 12/13/24 07:36 36.5 C 52 L 18 127/75 12/13/24 02:33 36.8 C 45 L 18 117/61 12/12/24 22:33 36.5 C 54 L 18 139/76 12/12/24 22:10 53 L 12/12/24 19:28 36.5 C 59 L 18 141/75 H 12/12/24 15:49 36.5 C 54 L 18 141/68 H 12/12/24 11:50 36.7 C 61 18 155/89 H 12/12/24 08:15 36.9 C 58 L 18 134/71 Pulse Ox O2 Del Method 12/13/24 07:41 98 Room Air 12/13/24 07:36 96 Room Air 12/13/24 02:33 96 CPAP 12/12/24 22:33 96 Room Air 12/12/24 22:10 12/12/24 19:28 97 Room Air 12/12/24 15:49 95 Room Air 12/12/24 11:50 96 Room Air 12/12/24 08:15 93 Room Air Cardiovascular RRR, no murmur, no edema + bradycardic Respiratory normal respiratory effort, lungs clear to auscultation Pre-Sedation Airway Assessment Smoking Status: Never smoker Hx Sleep Apnea: Yes Hx Difficult Intubation: No Short, Thick Neck: No Thyromental Distance: > or= 3.5 Finger Breadths Oral Cavity: + WNL Mallampati Class: III ASA: ASA3 NPO Status Date of Last Intake of Fluids: 12/12/24 Time of Last Intake of Fluids: 22:00 Date of Last Intake of Solid Food: 12/12/24 Time of Last Intake of Solid Foods: 17:00 Procedure Planning Contraindications for Sedation: none Current Medications Reviewed: Yes Notes The planned sedation has been discussed with the patient. Informed Consent was obtained. I have identified the patient, determined the appropriateness of sedation and have assessed the patient immediately prior to the procedure. All medicine(s) and interventions are by my order.
--- NOTE | 2024-12-13 08:10 | History & Physical Bridge Note ---
Date of Service December 13, 2024 History & Physical Bridge Note I have examined the patient, reviewed the History & Physical and in the interval since the performance of the History & Physical I have noted the following changes of clinical significance: the patient has worsening SSS and syncope due to marked sinus bradycardia so he was recommended a pacemaker prior to hospital discharge; the procedure and risks were discussed with the pt he expressed an understanding and consents signed.
[2024-12-13] MEDS: WATER, STERILE FOR INJ 10 ML VIAL ONE (09:27)
[2024-12-13] MEDS: BUPIVACAINE 0.25% PF 30 ML VIAL ONE (09:27)
[2024-12-13] MEDS: VANCOMYCIN HCL 1000MG/20ML VIAL ONE (09:27)
[2024-12-13] MEDS: LIDOCAINE 1% LOCAL 20 ML VIAL ONE (09:27)
[2024-12-13] MEDS: ceFAZolin 330 MG/ML 1 GM VIAL ONE (09:27)
[2024-12-13] MEDS: MIDAZOLAM HCL 5 MG/ML 1 ML VIAL ONE (09:29)
[2024-12-13] MEDS: CLINDAMYCIN 900 MG/D5W 50 ML BAG IV ONE (09:29)
[2024-12-13] MEDS: MIDAZOLAM HCL 1 MG/ML 2ML VIAL ONE (09:34)
--- NOTE | 2024-12-13 09:48 | Post Anesthesia Assessment ---
Date of Service December 13, 2024 Post Sedation Assessment Vital Signs Temp Pulse Pulse Pulse Resp BP Pulse Ox 12/13/24 07:41 50 L 18 151/77 H 98 12/13/24 07:36 36.5 C 52 L 18 127/75 96 12/13/24 02:33 36.8 C 45 L 18 117/61 96 12/12/24 22:33 36.5 C 54 L 18 139/76 96 12/12/24 22:10 53 L 12/12/24 19:28 36.5 C 59 L 18 141/75 H 97 12/12/24 15:49 36.5 C 54 L 18 141/68 H 95 12/12/24 11:50 36.7 C 61 18 155/89 H 96 O2 Del Method 12/13/24 07:41 Room Air 12/13/24 07:36 Room Air 12/13/24 02:33 CPAP 12/12/24 22:33 Room Air 12/12/24 22:10 12/12/24 19:28 Room Air 12/12/24 15:49 Room Air 12/12/24 11:50 Room Air Recovery Score Activity: Moves 4 extremities Respiration: Deep Breath/Cough Circulation: +/-20% PreAnes Value Consciousness: Fully Awake Oxygen Saturation: > 92% On Room Air Discharge Sedation Level of Care: Fast Track Phase II Post Sedation Plan On clinical assessment, the patient appears to have tolerated the sedation without complications. Patient is recovering as anticipated. Patient will continue to be monitored by nursing and may be discharged when sedation discharge criteria are met per below protocol. Upon Completions of procedure up to 15 minutes continue every 5 minute vital signs and the P.A.R. score; then discharge to a Phase I or Fast Track to Phase II per the following guidelines: * Discharge Patient to appropriate Phase II area if PAR is 8 or greater or return to pre- procedure baseline. The post - procedure orders will be as directed. * If PAR score is less than 8 or not return to pre-procedure baseline then patient will follow Phase I monitoring till PAR is reached for Phase II. The Phase I may be done in procedure room or may call to secure a Phase I area. * If naloxone or flumazenil are used for reversal, hold in Phase I for continued monitoring from when last reversal dose was given for a minimum of 60 minutes or longer pending the nurse and/or physician discretion of patient condition before discharge to Phase II. Please call the Sedation Physician to re-evaluate and complete post-note for discharge to Phase II area. Do NOT discharge from procedure sedation or Phase 1 until post- sedation evaluation note is complete by procedure /sedation MD Sedation Discharge Instructions to be given to the patient at discharge to home.
[2024-12-13 10:22] VITALS: TEMP 97.3
--- NOTE | 2024-12-13 10:44 | Cardiology Progress Note ---
Date of Service December 13, 2024 Assessment & Plan (1) Bradycardia: (2) Frequent PVCs: (3) Symptomatic bradycardia: (4) CAD (coronary artery disease): Plan: Status post PCI left anterior descending 2019 (5) PAF (paroxysmal atrial fibrillation): Plan: Status post pulmonary vein isolation ablation 2021 Plan Patient is an 84-year-old male presents due to symptoms of lightheadedness and scalp tingling with noted sinus bradycardia with frequent ventricular ectopy on presentation and on telemetry. 2 prior episodes of acute syncope with hospitalization in 2022. Symptoms suspicious for symptomatic bradycardia with possible prior syncope. Prior event monitor June 2024 with occasional ventricular ectopy bigeminy trigeminy and 1 run of ventricular tachycardia. Discussed options of management recommend proceeding with dual-chamber pacemaker given prior syncopal events, bradycardia and indications for beta-trista therapy. Will keep n.p.o. after midnight tonight with anticipation of procedure in the morning Lovenox to be held 12/13/2024 1. Symptomatic bradycardia with frequent ventricular ectopy: Patient underwent dual-chamber pacemaker this morning. Tolerated procedure well Chest x-ray pending Plan add metoprolol succinate 12.5 mg daily first dose today for rhythm and ectopy suppression. Will reinterrogate pacemaker later today and if patient stable may be discharged later this afternoon Arrangements being made for postprocedural follow-up, cardiology appointment scheduled 12/29/2024 Admission and Anticipated Discharge Date Admission Date: December 11, 2024 Subjective Patient seen and examined, chart reviewed. Patient underwent dual-chamber pacemaker this morning without event. Denies any cardiac complaints. Incision site intact, chest x-ray pending Review of Systems Review of Systems: All systems reviewed & are unremarkable except as noted in Subjective Physical Exam Constitutional: WD/WN, vitals as above Eyes: PERRL, conjunctivae normal, anicteric sclerae ENMT: external ear and nose normal, oropharynx normal Neck: trachea midline, no thyromegaly Respiratory: normal respiratory effort, lungs clear to auscultation Cardiovascular: Rate/Rhythm: regular rate and regular rhythm Vessels: no JVD Extremities: no edema Chest (Breasts): Chest: + pacemaker (Site bandaged without hematoma) Gastrointestinal (Abdomen): normal bowel sounds, soft, nontender, no hepatosplenomegaly Musculoskeletal: no cyanosis or clubbing, extremities motor strength 5/5 Results & Data Vital Signs (Past 12 Hours) Vital Signs Temp Pulse Pulse Resp BP Pulse Ox O2 Del Method 12/13/24 10:15 36.3 C L 76 20 148/89 H 95 Room Air 12/13/24 10:05 79 18 138/89 95 Room Air 12/13/24 09:50 75 18 122/82 95 Room Air 12/13/24 07:41 50 L 18 151/77 H 98 Room Air 12/13/24 07:36 36.5 C 52 L 18 127/75 96 Room Air 12/13/24 02:33 36.8 C 45 L 18 117/61 96 CPAP PG Care Time/CCT Total # of Minutes Spent Total Time Spent with Patient: Total time spent is greater than 50% in coordination of care (as documented) at patient's floor/unit and/or counseling patient: Coding Level of Care Code 37357 SUB INP/OBS CARE 3/50MIN Diagnoses Bradycardia R00.1 Frequent PVCs I49.3 Symptomatic bradycardia R00.1 CAD (coronary artery disease) I25.10 PAF (paroxysmal atrial fibrillation) I48.0
[2024-12-13 10:48] VITALS: PULSE 72; RESP 18; O2SAT 94
[2024-12-13] MEDS: METOPROLOL SUCC 25MG EXT REL TAB PO SCH (11:08)
--- NOTE | 2024-12-13 12:29 | XRay Report ---
XR chest 1V portable CLINICAL HISTORY: s/p ppm ensure no PTX COMPARISON STUDY: 12/09/2024 FINDINGS: There is a left-sided dual lead pacemaker. There is no pneumothorax. No consolidation or pl eural effusion. IMPRESSION: No pneumothorax. ACT 112: Negative or not required by law. Electronically signed by: Talib Elkins M.D. 12/13/2024 12:28 PM
--- NOTE | 2024-12-13 13:16 | Hospitalist Progress Note ---
Date of Service December 13, 2024 Assessment & Plan (1) Symptomatic bradycardia: (2) PAF (paroxysmal atrial fibrillation): (3) CAD (coronary artery disease): (4) BPH (benign prostatic hyperplasia): Plan 84 year old male with PMH significant for atrial fibrillation s/p ablation (2021), hypertension, CAD s/p stent (2019), IBS, diverticulosis, LEIGH on CPAP, BPH and glaucoma who presents to the ED on 12/09/2024 with bradycardia. Symptomatic bradycardia Patient presenting with diaphoresis and HR in the 30s EKG revealed sinus bradycardia with frequent PVCs at 56bpm Telemetry revealed HR as low as 33 Med list reviewed without any that would cause bradycardia Obtain updated echo - last echo in 2022 revealed mild concentric LVH, normal LV wall motion, LVEF 60-65%, no significant valvular disease, mild aortic root dilation Clinically stable without any more symptoms and the heart rate went down to 30s during night Electrolytes unremarkable and TSH normal Echo of the heart showednormal systolic function with EF of 55 to 60%, LA is mildly dilated, there is mild mitral regurgitation, grade 1 diastolic dysfunction, mild aortic regurgitation and mild pulmonary vascular regurgitation Appreciate cardiology input and recommendation for possible pacemaker tomorrow Patient remains free from any symptoms and did not have any significant bradycardia as before Remains stable medically and did not have any more significant bradycardia arrhythmia Status post dual-chamber cardiac pacemaker placement on 12/13/2024 Remained stable following the procedure denies any pain and/or other symptoms Likely discharge this afternoon following pacemaker interrogation Atrial fibrillation s/p ablation (2021) Not on AC or beta trista Continues to have bradycardia with symptoms at times Heart rate remains around 60s without any cardiac symptoms Paced rhythm with rate of 72/min Hypertension Continue losartan His blood pressure is controlled CAD s/p stent (2019) Continue baby aspirin and statin Denies any cardiac symptoms LEIGH on CPAP Continue CPAP HS BPH Continue finasteride and silodosin History of GI bleeding Continue famotidine Glaucoma Continue eye drops DVT Prophylaxis: SQ lovenox Code Status: FULL CODE - As per discussion at bedside with the patient. PCP: Helena Ulrich Disposition: admit to PCU Patient discussed with the family members Admission and Anticipated Discharge Date Admission Date: December 11, 2024 Subjective 12/10/2024 The patient was seen and examined in telemetry unit He has been having bradycardia with occasional symptoms of feeling unwell for some time Denies any significant symptoms since admission His heart rate went down to upper 30s during the night 12/11/2024 The patient was seen and examined in telemetry unit He has been stable without any significant symptoms Heart rate remains on the lower side and it goes as low as upper 40s Likely to have permanent pacemaker tomorrow 12/12/2024 The patient was seen and examined in telemetry unit He did not have any more episode of significant bradycardia arrhythmia No episodes of dizziness and/or presyncope here in the hospital Denies any other significant symptoms but very anxious for his heart condition 12/13/2024 The patient was seen and examined in telemetry unit in presence of the family members He is status post dual-chamber pacemaker placement on 12/13/2024 He has been feeling much better and will likely be discharged home following pacemaker interrogation today Review of Systems Review of Systems: All systems reviewed and unremarkable except as noted below Physical Exam Physical Exam: Lying in bed without any acute distress Constitutional: well developed, well nourished and average body habitus; not ill appearing Eyes: PERRL, conjunctivae normal, anicteric sclerae ENMT: external ear and nose normal, oropharynx normal Neck: trachea midline, no thyromegaly Respiratory: no respiratory distress Auscultation: lungs clear to auscultation bilaterally Cardiovascular: Rate/Rhythm: regular rate, regular rhythm and + bradycardic Heart Sounds: normal S1 and normal S2; no murmur Extremities: no edema Gastrointestinal (Abdomen): Inspection/Auscultation: normal bowel sounds; abdomen not distended Percussion/Palpation: abdomen soft; abdomen nontender Neurologic: normal touch/pain/proprioception and moves all extremities; no focal motor deficits Psychiatric: A+Ox3, euthymic affect Lymphatic: no cervical or axillary lymphadenopathy Results & Data Results & Data Vital Signs (Past 12 Hours) Vital Signs Temp Pulse Pulse Resp BP Pulse Ox O2 Del Method 12/13/24 10:46 36.3 C L 72 18 144/89 H 94 Room Air 12/13/24 10:15 36.3 C L 76 20 148/89 H 95 Room Air 12/13/24 10:05 79 18 138/89 95 Room Air 12/13/24 09:50 75 18 122/82 95 Room Air 12/13/24 07:41 50 L 18 151/77 H 98 Room Air 12/13/24 07:36 36.5 C 52 L 18 127/75 96 Room Air 12/13/24 02:33 36.8 C 45 L 18 117/61 96 CPAP Medications Administered Current Inpatient Medications Acetaminophen (Acetaminophen 325 Mg Tab) 650 mg PO Q4H PRN PRN Reason: Pain or Fever Stop: 01/08/25 16:55 Al Hydrox/Mg Hydrox/Simethicone (Aluminum/Magnesium Susp 30 Ml Udc) 15 ml PO Q4H PRN PRN Reason: Dyspepsia Stop: 01/08/25 16:55 Aspirin (Aspirin 81 Mg Ectab) 81 mg PO DAILY SUNITA Stop: 01/09/25 08:59 Last Admin: 12/13/24 10:19 Dose: 81 mg Atorvastatin Calcium (Atorvastatin 40 Mg Tab) 40 mg PO DAILY [facility] Stop: 01/09/25 08:59 Last Admin: 12/13/24 10:19 Dose: 40 mg Dorzolamide HCl (Dorzolamide Hcl 2% Oph Soln 10 Ml Btl) 1 drops OPR BID [facility] Stop: 01/08/25 20:59 Last Admin: 12/13/24 10:18 Dose: 1 drops Enoxaparin Sodium (Enoxaparin Inj 40 Mg/0.4 Ml Syr) 40 mg SQ DAILY [facility] Stop: 01/09/25 08:59 Last Admin: 12/12/24 08:12 Dose: 40 mg Famotidine (Famotidine 20 Mg Tab) 20 mg PO BID [facility] Stop: 01/08/25 20:59 Last Admin: 12/13/24 10:17 Dose: 20 mg Finasteride (Finasteride 5 Mg Tab) 5 mg PO DAILY [facility] Stop: 01/09/25 08:59 Last Admin: 12/13/24 10:20 Dose: 5 mg Latanoprost (Latanoprost 0.005% Op Soln 2.5 Ml Btl) 1 drops OPL HS [facility] Stop: 01/08/25 20:59 Last Admin: 12/12/24 20:29 Dose: 1 drops Losartan Potassium (Losartan Potassium 25 Mg Tab) 25 mg PO DAILY [facility] Stop: 01/09/25 08:59 Last Admin: 12/13/24 10:19 Dose: 25 mg Metoprolol Succinate (Metoprolol Succ 25mg Ext Rel Tab) 12.5 mg PO QAM [facility] Stop: 01/12/25 10:44 Last Admin: 12/13/24 11:08 Dose: 12.5 mg Miscellaneous (Order Awaiting Action) 1 each N/A QS [facility] Stop: 01/09/25 00:00 Last Admin: 12/13/24 10:01 Dose: Not Given Multivitamins (Multivitamin Tab) 1 tab PO QPM [facility] Stop: 01/09/25 20:59 Last Admin: 12/12/24 20:30 Dose: 1 tab Ondansetron HCl (Ondansetron Inj 2 Mg/Ml 2 Ml Vial) 4 mg IV Q6H PRN PRN Reason: Nausea Stop: 01/08/25 16:55 Polyethylene Glycol (Polyethylene (Miralax) 17 Gm Pack) 17 gm PO DAILY PRN PRN Reason: Constipation Stop: 01/08/25 16:55 Senna/Docusate Sodium (Docusate Sodium/Senna 50/8.6mg Tab) 1 tab PO HS [facility] Stop: 01/08/25 20:59 Last Admin: 12/12/24 20:29 Dose: 1 tab
--- NOTE | 2024-12-13 13:58 | Communication Note ---
Date of Service: December 13, 2024 Chest x-ray with appropriate lead placement and no pneumothorax. Device check with appropriate function. Stable for discharge today. Began on metoprolol succinate 12.5 mg daily. Has follow-up with cardiology [id number]
[2024-12-13 14:17] VITALS: BP 134/71
--- NOTE | 2024-12-13 14:38 | Discharge Summary ---
Date of Service December 13, 2024 Admission HPI Per Admitting Provider 84 year old male with PMH significant for atrial fibrillation s/p ablation (2021), hypertension, CAD s/p stent (2019), IBS, diverticulosis, LEIGH on CPAP, BPH and glaucoma who presents to the ED on 12/09/2024 with bradycardia. He reports that he woke up in his usual state of health this morning. Did a 33 minute walking workout on the treadmill and took a shower. When he sat down after his shower, all of a sudden he felt a tingling sensation in his forehead and became diaphoretic and clammy. He felt his pulse and noticed skipped beats where he had two regular beats then a skipped beat. He had a pulse ox that he applied and saw that his heart rate was in the 30s. The tingling sensation was only momentary and his clamminess persisted throughout checking his pulse ox. He sought evaluation as soon as he was feeling well enough to come to the ED. He denies any dizziness or lightheadedness, feeling faint or syncopal, chest pain, SOB, abdominal pain, N/V. He notes a history of PVCs but reports he has never felt anything like this before. Patient did take his medications this morning and reports no recent changes to any doses or new medications. Admission Exam Per Admitting Provider General: Not in distress Eyes: PERRL, conjunctivae normal, not pale, anicteric sclerae, EOM intact bilaterally ENMT: External ear and nose normal, oropharynx normal Respiratory: Normal respiratory effort, no respiratory distress, lungs clear to auscultation Cardiovascular: Bradycardic, S1 S2 Gastrointestinal (Abdomen): Abdomen is not distended, soft, non-tender to palpation, normal bowel sounds Musculoskeletal: Trace ankle edema Neurologic: Alert and oriented x 3, No focal weakness, sensation grossly intact Psychiatric: Euthymic affect Principal Diagnosis Symptomatic bradycardia status post dual-chamber pacemaker placement Discharge Exam Lying in bed without any acute distress Constitutional well developed, well nourished and average body habitus; not ill appearing Eyes PERRL, conjunctivae normal, anicteric sclerae ENMT external ear and nose normal, oropharynx normal Neck trachea midline, no thyromegaly Respiratory no respiratory distress Auscultation: lungs clear to auscultation bilaterally Cardiovascular Rate/Rhythm: regular rate, regular rhythm and + bradycardic Heart Sounds: normal S1 and normal S2; no murmur Extremities: no edema Gastrointestinal (Abdomen) Inspection/Auscultation: normal bowel sounds; abdomen not distended Percussion/Palpation: abdomen soft; abdomen nontender Neurologic normal touch/pain/proprioception and moves all extremities; no focal motor deficits Psychiatric A+Ox3, euthymic affect Lymphatic no cervical or axillary lymphadenopathy Discharge Data Allergies Allergy/AdvReac Type Severity Reaction Status Date / Time Penicillins Allergy Mild RASH Verified 12/13/24 07:47 adhesive Allergy Unknown Rash Verified 12/13/24 07:47 wool Allergy Rash Verified 12/13/24 07:47 Consultations 12/09/24 15:21 ED Decision to Admit Stat 12/09/24 16:56 Consult Cardiology Routine Procedures Performed Operation Date: 12/13/24 08:00 Actual Procedures s Venogram, Unilateral - Jigna Corona DO p Pacer with A/V Leads (Dual) - Jigna Corona DO Ordered Studies 12/13/24 06:45 EP Lab Images for PACS ONCE Hospital Course (1) Symptomatic bradycardia: (2) PAF (paroxysmal atrial fibrillation): (3) CAD (coronary artery disease): (4) BPH (benign prostatic hyperplasia): Plan 84 year old male with PMH significant for atrial fibrillation s/p ablation (2021), hypertension, CAD s/p stent (2019), IBS, diverticulosis, LEIGH on CPAP, BPH and glaucoma who presents to the ED on 12/09/2024 with bradycardia. Symptomatic bradycardia Patient presenting with diaphoresis and HR in the 30s EKG revealed sinus bradycardia with frequent PVCs at 56bpm Telemetry revealed HR as low as 33 Med list reviewed without any that would cause bradycardia Obtain updated echo - last echo in 2022 revealed mild concentric LVH, normal LV wall motion, LVEF 60-65%, no significant valvular disease, mild aortic root dilation Clinically stable without any more symptoms and the heart rate went down to 30s during night Electrolytes unremarkable and TSH normal Echo of the heart showednormal systolic function with EF of 55 to 60%, LA is mildly dilated, there is mild mitral regurgitation, grade 1 diastolic dysfunction, mild aortic regurgitation and mild pulmonary vascular regurgitation Appreciate cardiology input and recommendation for possible pacemaker tomorrow Patient remains free from any symptoms and did not have any significant bradycardia as before Remains stable medically and did not have any more significant bradycardia arrhythmia Status post dual-chamber cardiac pacemaker placement on 12/13/2024 Remained stable following the procedure denies any pain and/or other symptoms Likely discharge this afternoon following pacemaker interrogation Atrial fibrillation s/p ablation (2021) Not on AC or beta trista Continues to have bradycardia with symptoms at times Heart rate remains around 60s without any cardiac symptoms Paced rhythm with rate of 72/min Hypertension Continue losartan His blood pressure is controlled CAD s/p stent (2019) Continue baby aspirin and statin Denies any cardiac symptoms LEIGH on CPAP Continue CPAP HS BPH Continue finasteride and silodosin History of GI bleeding Continue famotidine Glaucoma Continue eye drops DVT Prophylaxis: SQ lovenox Code Status: FULL CODE - As per discussion at bedside with the patient. PCP: Helena Ulrich Disposition: admit to PCU Patient discussed with the family members Total Time Total Time Spent Total Time Spent (In Minutes): 35 MInutes Discharge Plan Discharge Items Patient Disposition: Home - Self-Care Reason For Visit: BRADYCARDIA Discharge Diagnosis: Symptomatic bradycardia status post dual-chamber pacemaker placement Condition on Discharge: Good Activity: As commented below Activity Comment: do not raise the left elbow over the left shoulder for 1 month Lifting: No more than 10 pounds Lifting Comment: do not lift more than 10 pounds with the left arm for 2 weeks Bathing: Keep incision dry Bathing Comment: keep dressing on & dry until wound check Non-emergency contact: Primary Care Provider Call non-emergency contact if: you have any medication questions and your symptoms worsen Follow-up/Referrals: Helena Ulrich MD [Primary Care Provider] - (Date & Time 12/16/2024 10:20 AM Provider: Ian Licea DO General Internal Medicine [facility] ) Candido Clayton CRNP [Nurse Practitioner] - 12/29/24 11:00 am Diet: Heart Healthy Addtl Attending Provider Instructions: Device and wound check at [facility] in 10-14 days; someone will call you with the day and time Please take precautions to avoid falls Take your medications as advised Please keep appointments with your healthcare providers Pending Studies at Discharge: No Stand-Alone Forms: My byUs, Smoking Cessation Medications and DC Order Prescriptions: New metoprolol succinate 25 mg Tablet Extended Release 24 Hr 12.5 mg PO QAM Qty: 30 0RF Continued Rocklatan 0.02-0.005 % Drops 1 drp OPR HS Rx Instructions: right eye aspirin 81 mg Tablet,Delayed Release (Dr/Ec) 81 mg PO DAILY finasteride 5 mg tablet 5 mg PO DAILY atorvastatin 40 mg tablet 40 mg PO DAILY multivitamin Tablet 1 tab PO HS tadalafil 5 mg Tablet 20 mg PO HS PRN (Reason: Erectile Dysfunction) latanoprost 0.005 % drops 1 drp OPL HS Rx Instructions: left eye famotidine 20 mg tablet 20 mg PO BID dorzolamide 2 % drops 1 drp OPR BID Rx Instructions: right eye losartan 25 mg tablet 25 mg PO DAILY sennosides-docusate sodium [Senna Plus] 8.6-50 mg Tablet 1 tab PO HS Discharge Orders: Discharge Order (Routine); Ordered 12/13/24 Ordered By: Juliana Krause/Other Patient Handouts: Pacemakers Admission Data Admit Date/Time: 12/11/24 16:47 Attending Provider: Juliana Langston Admit Provider: Juliana Langston Primary Care Provider: Helena Ulrich Other Providers: Rosa Maria Meadows I. Other Interventions: Discharge Summary Assessment (RN) Last Done: 12/13/24 14:13
--- NOTE | 2024-12-14 17:54 | Electrocardiogram Report ---
Test Reason : Blood Pressure : */* mmHG Vent. Rate : 77 BPM Atrial Rate : 77 BPM P-R Int : 142 ms QRS Dur : 156 ms QT Int : 434 ms P-R-T Axes : * -41 102 degrees QTcB Int : 491 ms AV dual-paced rhythm with frequent Premature ventricular complexes Abnormal ECG When compared with ECG of 09-Dec-2024 11:43, Electronic ventricular pacemaker has replaced Sinus rhythm Confirmed by Candido Robert ([id number]) on 12/14/2024 5:53:38 PM Referred By: REFERRED SELF Confirmed By: Candido Robert
--- NOTE | 2024-12-21 13:13 | Operative Report ---
Post Operative Report DATE OF PROCEDURE: 12/13/2024 PREOPERATIVE DIAGNOSES: syncope and irreversible symptomatic sinus bradycardia POSTOPERATIVE DIAGNOSIS: Same PROCEDURE: A dual-chamber rate responsive permanent pacemaker, along with a peripheral venogram under fluoroscopic guidance. SURGEON: Jigna Corona DO ASSISTANTS: None. ANESTHESIA: Monitored conscious sedation administered under my supervision by [place]at Head Start time 08:28, end time 09:42, a total of 6 mg of Versed and 150 mcg of fentanyl. INTRAVENOUS FLUIDS: 0 mL. CONTRAST: 10 mL. ANTIBIOTICS: 900mg clindamycin ADDITIONAL MEDICATIONS: 1None BLOOD LOSS: 50 mL. URINE OUTPUT: Not applicable. SPECIMENS: None. FINDINGS: See below. DRAINS: None. COMPLICATIONS: None. CONDITION: Stable. INDICATIONS: This is a 84-year-old gentleman who has a past medical history Frequent PVCs, Symptomatic bradycardia-irreversible, CAD h/o PCI to LAD in 2019, pAF h/o PVI ablation in 2021. Pt admitted to [facility] due to recurrent near syncope with marked sinus bradycardia. He was recommended a pacemaker prior to hospital discharge. CONSENT: Consent was obtained prior to the patient going into the electrophysiology lab. The patient was informed of the risks, benefits, and alternatives to the procedure. Risks include, but not limited to, sudden cardiac , cardiac arrhythmias, cerebrovascular accident, myocardial infarction, injury to his blood vessels, chamber of the heart and lung, bleeding and infection. The patient understood these risks and agreed to the procedure as planned. Informed consent was obtained. DESCRIPTION OF PROCEDURE: The patient was brought into electrophysiology lab in a fasting state. He was connected to continuous cardiac monitoring. A timeout was performed to ensure the patient's identity and procedure correctly. He was prepped and draped in the left infraclavicular space in normal surgical standard fashion. Monitored conscious sedation was given throughout the procedure for the patient's comfort level. [place] precautions were maintained throughout the procedure. Prophylactic antibiotics were given prior to incision. A 20 mL of 1% lidocaine and bupivacaine mixture were given in the left deltopectoral groove. An incision was made in the left deltopectoral groove. B dominic dissection was performed down to the pectoralis muscle. Then, using blunt dissection over the pectoralis muscle within the pectoral fascia, a pacemaker pocket was created. Then, a peripheral venogram was performed to identify the axillary vein. Venous axillary access was obtained through a needlestick without any problems. A guidewire was inserted without any resistance. A 6- Jordanian sheath was inserted over the guidewire without any resistance. Dilator was removed and a second guidewire was inserted through the sheath to allow for retained venous access. Then a 9 Jordanian sheath was inserted over one of the guidewires. The guidewire and dilator were removed. Then, the CPS Vegetable Packer 3D medium sheath was inserted through the 9-Jordanian sheath over a Glidewire into the right ventricle. The Glidewire and dilator were removed. Then, the left bundle lead was advanced through the sheath and intracardiac electrogram His bundle recordings were estimated when the camera was in CHAIREZ 10. Once I had an idea where the His bundle was-as I could not see a clear HIS. I then moved the camera to CHAIREZ 30 and marked where I estimated the His bundle was on my fluoroscopy screen. I came down about 2 cm from this in a line that would extend out to the apex and then started coming on pacing. Once I found an area where I had a nice W formed pace complex in my lead V1, I then moved the camera to SLOVAK 30. Then the helix was extended into the septum. Then the helix locking tool was placed. Then the lead was screwed further into the septum while pacing by giving slow clockwise turns. The paced complex changed to a nice R' in V1 and the pacing stim to peak QRS in V6 was good. I did need to reposition the lead a few times and ultimately swapped out for a medium curved extra long CPS design chief 3D sheath before it advanced nicely. I slit the CPS Vegetable Packer 3D large sheath under fluoroscopic guidance and left the 9-Jordanian sheath in while I positioned the right atrial lead. A 6-Jordanian sheath was inserted over the retained guidewire, the guidewire and dilator removed. The right atrial lead was then advanced into right atrium and positioned into right atrial appendage under fluoroscopic guidance. There was adequate pacing and sensing thresholds and no diaphragmatic stimulation with high output pacing. Of note I did use the large preformed J curved stylet. The 6-Jordanian sheath was peeled away and the lead was fixated to the pectoralis muscle using 0 silk suture. The 9-Jordanian sheath around the left bundle lead was peeled away and the lead was fixated to pectoralis muscle using 0 silk suture. The pocket was flushed with copious amounts of vancomycin and saline wash and inspected for hemostasis. The leads were then attached to the pulse generator making sure the pins were in appropriate position, passed set screws, and set screws were all tightened. Pulse generator was then placed in the pocket, making sure the leads were lying flat beneath the device. The incision was closed in a 3-layer fashion using 2-0 Vicryl interrupted suture, followed by 3-0 Vicryl interrupted suture, followed by 4-0 Monocryl running stitch. Then a primaseal dressing was placed EQUIPMENT: 1. Pulse generator is a [employer] MRI Model Number [id number] SN: [id number] 2. Right atrial lead, [email or web address] UlitPace [id number] SN: [id number] 3. Left bundle lead, [email or web address] UltiPace [id number] SN: [id number] INTRAPROCEDURAL FINDINGS: 1. Right atrial lead, P waves 3.6 millivolts, impedance 400 ohms, threshold 0.5 volts at 0.5 milliseconds. 2. Left bundle lead, R waves 6.5 millivolts, impedance 750 ohms, threshold 0.9 volts at 0.5 milliseconds. FINAL MEASUREMENTS THROUGH THE DEVICE: 1. Right atrial lead, P waves 3.5millivolts, impedance 440 ohms, threshold 0.75 volt at 0.4 milliseconds. 2. Left bundle lead, R waves 6.7 millivolts, impedance 790 ohms, threshold 0.75 volts at 0.4 milliseconds. FINAL PARAMETERS: DDDR 60/120, right atrial amplitude 3.5 volts, pulse width 0.4 milliseconds, sensitivity 0.3 millivolts. Left bundle lead amplitude 3.5 volts, pulse width 0.4 milliseconds, sensitivity 2 millivolts. IMPRESSION: Successful dual chamber rate responsive permanent pacemaker under fluoroscopic guidance all under fluoroscopic guidance secondary to syncope due to irreversible symptomatic sinus bradycardia. PLAN: Monitor the patient post-procedure. A 12-lead ECG, chest x-ray. He is not to lift the left elbow or left shoulder for 1 month. He cannot lift more than 10 pounds with the left arm for 2 weeks. He is to keep the dressing on and dry until his wound check in 10 days.
== END 2024-12-13 14:54 | disposition home or self-care (01) | DRG 244 ==
LOC: ED 11:29 → 2S 11:29 → SUATTDRO 15:31 → 2S 16:40 → SUATTDRO 12-11 16:47